=== PATIENT | female | born 2000 | race Caucasian/White ===

== ENCOUNTER 2020-10-01 16:28 | Emergency (ER) | payer MEDICAID, SELFPAY | END 2020-10-01 18:13 | disposition left against medical advice (07) | PROVIDERS: Emergency Provider Emergency Medicine; PCP Pediatrics | DX: R07.9 Chest pain, unspecified (principal) | CPT/HCPCS: 99281 ==

== ENCOUNTER 2020-10-02 17:32 | Emergency (ER) | payer MEDICAID, SELFPAY ==
--- NOTE | 2020-10-02 18:11 | ED.URI ---
HPI - URI/Sore Throat General Stated Complaint: covid symptoms Time Seen by Provider: 10/02/20 18:09 Source: patient Mode of arrival: ambulatory Limitations: no limitations History of Present Illness HPI Narrative: 20-year-old female who reports she has history of asthma 2 days ago was exposed to a family member who tested positive COVID-19 she has had some runny nose and cough since. States she is worried she may have COVID-19 is here for COVID test. Denies any fever, chest pain or shortness of breath. MD elicited complaint: cough and rhinorrhea Onset (ago): day(s) (2) Severity: mild Exacerbating factors: nothing Associated symptoms: nasal congestion Treatments prior to arrival: none Related Data Previous Rx's Medication Instructions Recorded albuterol sulfate 2 puff INHALATION Q4-6H PRN #18 g 10/02/20 prednisone 40 mg PO DAILY 5 Days #10 tab 10/02/20 Allergies Allergy/AdvReac Type Severity Reaction Status Date / Time No Known Allergies Allergy Unverified 08/03/20 19:04 Review of Systems Review of Systems: Constitutional: No Weight loss, No Fever, No Chills, No Night Sweats, No Fatigue, No Malaise ENT/Mouth: No Hearing loss, No Ear Pain, No Nasal Congestion, No Sinus Pain, No Hoarseness, No sore throat, + Rhinorrhea, No Swallowing Difficulty Eyes: No Eye Pain, No Swelling, No Redness, No Foreign Body, No Discharge, No Vision Changes Cardiovascular: No Chest Pain, No SOB, No Dyspnea on Exertion, No Orthopnea, No Edema, No Palpitations Respiratory: No Cough, No Sputum, No Wheezing, No Smoke Exposure, No Dyspnea Gastrointestinal: No Nausea, No Vomiting, No Diarrhea, No Constipation Genitourinary: no irregular bleeding, No Dysuria, No Urinary Frequency, No Hematuria Musculoskeletal: No joint pain, No Myalgias, No Joint Swelling Skin: No Skin Lesions, No rash Neuro: No Weakness, No Numbness, No Paresthesias, No Loss of Consciousness, No Dizziness, No Headache Psych: No Social Issues Heme/Lymph: No Bruising, No Bleeding,No Lymphadenopathy Endocrine: No Polyuria, No Polydipsia, No Temperature Intolerance PMFSH Past Medical History Attestation statement: The following information was validated with the patient. Social History Social History Advance Directives: No Advance Directives Information Provided: Yes Physical Exam Vital Signs: Vital Signs: Reviewed Const: General: cooperative and healthy appearing; No acute distress or intoxicated appearing Nutritional Appearance: average body habitus Orientation/consciousness: patient oriented x3 HENMT: Head: Yes normal to inspection Ears: hearing grossly normal bilaterally Eyes: General: appearance normal, both eyes and all related structures Visual Lopez: normal visual lopez by confrontation Neck: Neck: Yes normal visual inspection, No positive Brudzinski's sign, No positive Kernig's sign and No tender Thyroid: Thyroid normal Chest: Chest palpation & inspection: normal inspection of the chest Resp: Effort & Inspection: normal respiratory effort Cardio: Jugular venous distension: no JVD : General: Yes no CVA tenderness Back/Spine/Pelvis: Back: no CVA tenderness Skin: General skin exam: no rashes or lesions noted Neuro: General: patient oriented x3 Extrem: General: Yes normal to inspection MDM - URI/Sore Throat Differential Diagnosis Differential diagnosis: Likely upper respiratory infection and viral infection; Unlikely croup, otitis media, sinusitis, bronchitis, influenza and pharyngitis Discharge Plan Discharge Clinical Impression: Upper respiratory infection, acute Patient Disposition: Home, Self-Care Instructions: Upper Respiratory Infection (ED) Additional Instructions: Drink plenty fluids Self-isolation Social distancing Follow CDC guidelines line We have tested for COVID-19 this may take up to 3 days result in the meantime follow guidelines discussed Return if any concerns or worsening symptoms Thank you Prescriptions: New albuterol sulfate 90 mcg/actuation HFA aerosol inhaler 2 puff inhalation Q4-6H PRN (Reason: shortness of breath or wheezing) Qty: 18 RF: 1 prednisone 20 mg tablet 40 mg PO DAILY 5 Days Qty: 10 RF: 0 Referrals: Sara Ellison MD [Primary Care Provider] - 5 days (Phone visit ) Stand Alone Forms: Work/School Release
[2020-10-02 18:35] VITALS: BP 136/69; PULSE 60; RESP 18; TEMP 35.9; O2SAT 98; BMI 36.5
== END 2020-10-02 18:47 | disposition home or self-care (01) ==
PROVIDERS: Nurse Practitioner Primary Care; Emergency Provider Internal Medicine; PCP Pediatrics
DX: J06.9 Acute upper respiratory infection, unspecified (principal); R05 Cough; Z20.828 Contact with and (suspected) exposure to other viral communicable diseases; Z79.899 Other long term (current) drug therapy
CPT/HCPCS: 99283; U0003

== ENCOUNTER 2020-11-28 13:27 | Outpatient (REF) | payer MEDICAID, SELFPAY | END 2020-11-28 13:28 | disposition home or self-care (01) | LOC: HO.LAB 13:27 | PROVIDERS: Visit Provider Internal Medicine | DX: Z20.822 Contact with and (suspected) exposure to COVID-19 (principal) | CPT/HCPCS: 36415; C9803; U0003 ==

== ENCOUNTER 2020-12-04 14:43 | Outpatient (REF) | payer MEDICAID, SELFPAY | END 2020-12-04 14:44 | disposition home or self-care (01) | LOC: HO.LAB 14:43 | PROVIDERS: Visit Provider Internal Medicine | DX: Z20.822 Contact with and (suspected) exposure to COVID-19 (principal) | CPT/HCPCS: 36415; C9803; U0003 ==

== ENCOUNTER 2021-01-31 18:09 | Emergency (ER) | payer MEDICAID, SELFPAY ==
[2021-01-31 19:53] VITALS: BP 147/84; PULSE 90; RESP 18; TEMP 36.7; O2SAT 99; BMI 36.5
[2021-01-31 20:44] LABS: COVID-19 Test Negative (Negative)
--- NOTE | 2021-01-31 20:48 | ED.GENADULT ---
HPI - General Adult General Chief complaint: General Medical Stated complaint: exposure Time Seen by Provider: 01/31/21 19:37 Source: patient Mode of arrival: ambulatory Limitations: no limitations History of Present Illness HPI narrative: Patient presents to the ED for COVID swab. Patient asymptomatic. Patient wants to be tested due to COVID exposure. Related Data Previous Rx's Medication Instructions Recorded albuterol sulfate 2 puff INHALATION Q4-6H PRN #18 g 10/02/20 prednisone 40 mg PO DAILY 5 Days #10 tab 10/02/20 Allergies Allergy/AdvReac Type Severity Reaction Status Date / Time No Known Allergies Allergy Verified 10/02/20 18:38 Review of Systems Review of Systems: Yes all other systems are reviewed and are negative Constitutional: Constitutional: Reports as per HPI and Reports no additional constitutional complaints Eyes: Eyes: Reports as per HPI and Reports no additional eye complaints ENT: Reports system reviewed and no additional complaints, except as documented and Reports as per HPI Cardiovascular: Cardiovascular: Reports as per HPI and Reports no additional cardiovascular complaints Respiratory: Respiratory: Reports as per HPI and Reports no additional respiratory complaints Gastrointestinal: Gastrointestinal: Reports as per HPI and Reports no additional gastrointestinal complaints Genitourinary: Genitourinary: Reports no additional female genitourinary complaints and Reports as per HPI Musculoskeletal: Musculoskeletal: Reports no additional musculoskeletal complaints and Reports as per HPI Neurologic: Reports system reviewed and no additional complaints, except as documented and Reports as per HPI Psychiatric: Psychiatric: Reports no additional psychiatric complaints and Reports as per HPI [facility] Past Medical History Medical History (Updated 02/01/21 @ 00:00 by Background Daemon) Asthma Social History Social History Advance Directives: No Physical Exam Vital Signs: Vital Signs: Last Vital Signs Temp 98.1 F 01/31/21 19:53 Pulse 90 01/31/21 19:53 Resp 18 01/31/21 19:53 BP 147/84 H 01/31/21 19:53 Pulse Ox 99 01/31/21 19:53 Body Mass Index 36.5 Const: General: cooperative, healthy appearing, comfortable, no acute distress, well developed, alert and awake Orientation/consciousness: patient oriented x3 HENMT: Head: Yes normal to inspection, Yes No palpable skull fracture present, Yes normocephalic, Yes atraumatic and No abrasion Eyes: General: appearance normal, both eyes and all related structures Neck: Neck: Yes normal visual inspection, Yes full ROM, Yes no lymphadenopathy, Yes no meningeal signs, Yes trachea midline, Yes supple and No tender Chest: Chest palpation & inspection: normal inspection of the chest and normal palpation of entire chest wall Resp: Effort & Inspection: normal respiratory effort and able to speak in complete sentences Auscultation: clear to auscultation bilaterally Cardio: Jugular venous distension: no JVD Heart sounds: S1 normal heart sound present and S2 normal heart sound present GI: Inspection: Yes normal to inspection and No abdominal wall ecchymosis Palpation (GI): Soft to palpation, not firm, nontender, no guarding and not rigid : General: No CVA tenderness and Yes no CVA tenderness Back/Spine/Pelvis: Back: no CVA tenderness, No CVA tenderness and No back tenderness Skin: General skin exam: no rashes or lesions noted and elasticity normal Neuro: General: patient oriented x3, no meningeal signs and CN's II-XI intact bilaterally Cranial nerves: Yes CN's II-XII intact bilaterally Extrem: General: Yes normal to inspection and Yes full ROM Psych: Appearance: grossly normal, well kempt and not disheveled Course Course Course Narrative: Patient will have rapid COVID swab sent Reevaluation(s) Reevaluation #1: COVID swab negative Medical Decision Making [facility] Narrative Medical decision making narrative: Normal exam Lab Data Labs: Lab Results 01/31/21 Range/Units 20:00 COVID-19 (AUGIE) Negative (Negative) COVID-19 Clin Com See Note Discharge Plan Discharge Clinical Impression: Normal exam Patient Disposition: Home, Self-Care Instructions: Normal Exam (ED) Additional Instructions: Return to the ED immediately for any chest pain, shortness of breath, weakness, or any other concerning symptoms. Your COVID swab came back negative Prescriptions: No Action albuterol sulfate 90 mcg/actuation HFA aerosol inhaler 2 puff inhalation Q4-6H PRN (Reason: shortness of breath or wheezing) Qty: 18 RF: 1 prednisone 20 mg tablet 40 mg PO DAILY 5 Days Qty: 10 RF: 0 Interventions: ED Discharge Assessment Last Done: 01/31/21 21:45 Discharge Date/Time: 01/31/21 21:45 Print Language: Turkish
== END 2021-01-31 21:45 | disposition home or self-care (01) ==
PROVIDERS: Physician Assistant; Emergency Provider Emergency Medicine Emergency Medical Services
DX: Z20.822 Contact with and (suspected) exposure to COVID-19 (principal); Z79.899 Other long term (current) drug therapy
CPT/HCPCS: 36415; 87635; 99283

== ENCOUNTER 2021-02-02 13:30 | Outpatient (REF) | payer MEDICAID, SELFPAY | END 2021-02-02 13:31 | disposition home or self-care (01) | LOC: HO.LAB 13:30 | PROVIDERS: Visit Provider Internal Medicine | DX: Z20.822 Contact with and (suspected) exposure to COVID-19 (principal) | CPT/HCPCS: 36415; C9803; U0003; U0005 ==

== ENCOUNTER 2021-07-03 11:19 | Outpatient (REF) | payer MEDICAID, SELFPAY | END 2021-07-03 11:20 | disposition home or self-care (01) | LOC: HO.LAB 11:19 | PROVIDERS: Visit Provider Internal Medicine | DX: Z20.822 Contact with and (suspected) exposure to COVID-19 (principal) | CPT/HCPCS: C9803; U0003; U0005 ==

== ENCOUNTER 2021-09-14 15:34 | Outpatient (REF) | payer MEDICAID, SELFPAY ==
--- NOTE | ~2021-09-14 | US_ITS ---
EXAMINATION: US PELVIS CLINICAL INFORMATION: Excessive and frequent menstruation COMPARISON: Previous pelvic ultrasounds most recent May 2020 and pelvic MRI July 2020 TECHNIQUE: Ultrasound of the pelvis is performed using both transabdominal and transvaginal transducers along with Doppler. Transvaginal imaging is performed due to inadequate visualization transabdominally. FINDINGS: The uterus is anteverted and measures 9 x 4 x 5 cm in dimension. No focal uterine lesion is seen. Endometrial thickness is normal measuring 1.2 cm. There are nabothian cysts in the cervix. The right ovary measures 4.7 x 2 x 3.2 cm, volume 16 and renal. The left ovary measures 3.9 x 2.4 x 2.4 cm, volume 11 mL. There are multiple small peripheral cysts or follicles seen in both ovaries. Appearance is again suggestive of polycystic ovarian syndrome. There is no fluid in the pelvis. US/US pelvic and transvaginal IMPRESSION: Polycystic appearance of the ovaries. Normal thickness endometrium.
== END 2021-09-14 15:35 | disposition home or self-care (01) ==
LOC: HO.US 15:34
PROVIDERS: Visit Provider Internal Medicine
DX: N92.1 Excessive and frequent menstruation with irregular cycle (principal)
CPT/HCPCS: 76830; 76856

== ENCOUNTER 2021-10-20 12:26 | Emergency (ER) | payer MEDICAID, SELFPAY ==
--- NOTE | ~2021-10-20 | XR_ITS ---
EXAMINATION: XR CHEST CLINICAL INFORMATION: Shortness of breath. Covid positive. COMPARISON: Portable chest 09/10/2018 TECHNIQUE: Frontal view of the chest was obtained. FINDINGS: No significant abnormality is noted involving the heart, lungs, mediastinum, bony thorax or soft tissues. XR/XR chest 1V IMPRESSION: Unremarkable examination.
[2021-10-20 13:20] VITALS: BP 141/80; PULSE 80; RESP 16; TEMP 37; O2SAT 100; BMI 36.6
--- NOTE | 2021-10-20 15:31 | ECG_ITS ---
Test Reason : DYSPNEA Blood Pressure : / mmHG Vent. Rate : 068 BPM Atrial Rate : 068 BPM P-R Int : 142 ms QRS Dur : 084 ms QT Int : 386 ms P-R-T Axes : 037 051 028 degrees QTc Int : 410 ms Normal sinus rhythm with sinus arrhythmia Normal ECG No significant changes when compared with the previous EKG of 13 sep 2018 Referred By: Anne Marie Wisdom Electronically Signed By:ANYA CHILDERS
[2021-10-20 15:56] LABS: Basophils Percent Auto 0.3 % (0-2); Eosinophils Absolute Auto 0.1 X10*3/uL (0.0-0.4); Eosinophils Percent Auto 0.7 % (0-4); Hematocrit 41.4 % (37.0-47.0); Hemoglobin 13.3 g/dl (12.0-16.0); Imm Gran Abs Auto 0.02 X10*3/uL (0.00-0.03); Imm Gran Pct Auto 0.2 % (0.0-0.4); Lymphocytes Absolute Auto 2.2 X10*3/uL (1.2-4.9); Lymphocytes Percent Auto 24.8 % (20-40); MANUAL DIFF FLAG NO; Mean Corpuscular HGB Conc 32.1 g/dl (31.0-35.0); Mean Corpuscular Hemoglobin 24.9 pg (27.0-33.0); Mean Corpuscular Volume 77.5 fL (80.0-98.0); Mean Platelet Volume 10.2 fL (9.4-12.3); Monocytes Absolute Auto 0.4 X10*3/uL (0.1-1.2); Monocytes Percent Auto 4.4 % (2-11); Neutrophils Absolute Auto 6.2 x10*3/uL (2.0-8.3); Neutrophils Percent Auto 69.6 % (45-73); Platelet Count 281 X10*3/uL (160-400); Red Blood Count 5.34 X10*6/uL (4.20-5.50); Red Cell Distribution Width 13.3 % (11.0-16.0)
[2021-10-20 16:04] LABS: INTERNATIONAL NORM RATIO 1.1 (0.9-1.1); Prothrombin Time 12.3 SEC (9.9-13.0)
[2021-10-20] MEDS: predniSONE 20 MG TABLET 40 MG PO (16:16)
--- NOTE | 2021-10-20 16:17 | ED_ITS ---
HPI - SOB/Dyspnea General Chief Complaint: Dyspnea Stated Complaint: Diff Breathing COVID + Time Seen by Provider: 10/20/21 15:06 Source: patient Mode of arrival: ambulatory Limitations: no limitations History of Present Illness HPI Narrative: 21-year-old female with a past medical history of asthma who was recently diagnosed with COVID-19 at [facility] on 10/12/2021 presenting to the ED with complaints of shortness of breath with chest tightness that occurred at 03:00 when she woke up. She reports that at that time she noted she was pale and her fingernails on both hands were purple. She reports the fingernails turned back to normal color within 15 minutes. Although she still feels short of breath and the chest tightness despite using her albuterol inhaler. she does admit to having some nasal congestion/ rhinorrhea and intermittent productive cough. She denies any fevers, chills, dizziness, headaches, neck pain /stiffness, sore throat, trouble swallowing, chest pain, palpitations, paresthesias, jaw pain, abdominal pain, nausea/ vomiting/ diarrhea constipation, rashes, recent travel, lower extremity edema or calf tenderness, dysuria, History of DVT or PE, recent falls or injuries, recent surgery or immobilization, history of PVD, or any other symptoms complaints or concerns at this time. MD elicited complaint: shortness of breath and cough Pertinent past history: asthma and other (+ COVID ON 10/12) Onset (ago): hour(s) ( started at 03:00 prior to arrival) Context: recent illness ( see above) Timing: constant and progressively worsening Severity: moderate Exacerbating factors: nothing Relieving factors: nothing Known history of: asthma and other (+ COVID) Associated symptoms: pain with inspiration, cough and sputum production Treatment prior to arrival: other ( albuterol inhaler) Related Data Home oxygen amount: none Previous Rx's Medication Instructions Recorded albuterol sulfate 90 mcg/actuation 2 puff INHALATION Q4-6H PRN #18 g 10/02/20 aerosol inhaler prednisone 20 mg tablet 40 mg PO DAILY 5 Days #10 tab 10/02/20 albuterol sulfate 0.63 mg/3 mL 0.63 mg (3 mL) INHALATION QID PRN 10/20/21 solution for nebulization #75 ml albuterol sulfate 90 mcg/actuation 1 inh INHALATION QID PRN #8.5 g 10/20/21 aerosol inhaler azithromycin 250 mg tablet See Rx Instructions .ROUTE 10/20/21 .COMPLEX #6 tab codeine 10 mg-guaifenesin 100 mg/5 5 ml PO Q6H PRN #120 ml 10/20/21 mL oral liquid (Guaifenesin AC) nebulizers (AeroEclipse II #1 ea 10/20/21 Nebulizer) prednisone 20 mg tablet 40 mg PO DAILY 5 Days #10 tab 10/20/21 Allergies Allergy/AdvReac Type Severity Reaction Status Date / Time No Known Allergies Allergy Verified 10/20/21 13:20 Review of Systems Review of Systems: Constitutional : No Weight loss, No Fever, No Chills, No Night Sweats, No Fatigue, No Malaise ENT/Mouth : No Hearing loss, No Ear Pain, + Nasal Congestion, No Sinus Pain, No Hoarseness, No sore throat, + Rhinorrhea, No Swallowing Difficulty Eyes: No Eye Pain, No Swelling, No Redness, No Foreign Body, No Discharge, No Vision Changes Cardiovascular : + Chest tightness, + SOB, No Dyspnea on Exertion, No Orthopnea, No Edema, No Palpitations Respiratory : + Cough, + Sputum, + Dyspnea, No Wheezing, No Smoke Exposure Gastrointestinal : No Nausea, No Vomiting, No Diarrhea, No Constipation, No abdominal Pain, No Hematochezia, No Melena Genitourinary : no irregular bleeding, No Dysuria, No Urinary Frequency, No Hematuria, No Urinary Incontinence, No Urgency, No Flank Pain, No Urinary Flow Changes, No Hesitancy Musculoskeletal : No joint pain, No Myalgias, No Joint Swelling Skin : No Skin Lesions, No rash Neuro : No Weakness, No Numbness, No Paresthesias, No Loss of Consciousness, No Dizziness, No Headache Psych : No Anxiety/Panic, No Depression, No SI/HI/AH/VH, No Social Issues, Heme/Lymph: No Bruising, No Bleeding,No Lymphadenopathy Endocrine : No Polyuria, No Polydipsia, No Temperature Intolerance Yes all other systems are reviewed and are negative [facility] Past Medical History Attestation statement: The following information was validated with the patient. Medical History Asthma Social History Social History Advance Directives: No Advance Directives Information Provided: No Patient : No Physical Exam Vital Signs: Vital Signs: Last Vital Signs Temp 97.8 F 10/20/21 17:04 Pulse 93 10/20/21 17:04 Resp 18 10/20/21 17:04 BP 152/65 H 10/20/21 17:04 Pulse Ox 100 10/20/21 17:04 BMI result Body Mass Index 36.6 vital signs have been reviewed as normal and appeared to be correct. Blood pressure 141/80. Heart rate normal. Respiration rate normal. Temperature normal. Oxygen saturation normal. Appearance: Alert. Oriented X3. No acute distress. Head: Normal external exam. Normocephalic. Atraumatic. Eyes: PERRLA. EOMI. Conjunctiva and sclera normal. Eyelids normal. ENT: EAC normal. TM's Normal. Pharynx normal. Uvula midline. Moist mucous membranes. No trismus noted. No drooling noted. No muffled voice noted. Neck: Normal inspection. Neck supple. FROM. No adenopathy. Thyroid Normal. No meningeal signs. No neck mass noted. CVS: Normal heart rate and rhythm. Heart sound normal. Pulses normal throughout. No murmurs/rales/gallops. Respiratory: No respiratory distress. Painless inspiration. Breath sounds normal. No wheezes/rales/rhonchi noted. Chest nontender. No accessory muscle usage noted or decreased air movement noted. Abdomen: Soft and nontender. Bowel sounds normal in all 4 quadrants. No distention noted. No organomegaly noted. No visible injury noted. Back: Full range of motion noted. No rashes/lesion/induration/fluctuance or signs of infection noted. Skin: Skin warm and dry. Normal skin color. Normal skin turgor. No rashes/lesions/lacerations noted. Extremities: No lower extremity edema. no calf tenderness is noted. Extremities exhibit normal range of motion. Extremities nontender. Neuro: Oriented X 3. No motor deficit. No sensory deficit. Reflexes normal. Normal steady gait. No focal neuro deficits noted. Vascular: + radial pulses/+ 2 distal pedal pulses/+2 dorsalis pedis b/l. Normal cap refill. No cyanosis noted to upper extremity nails and lower extremity toes nails. Course Course Course Narrative: 15:30pm - 21-year-old female with a past medical history of asthma who was recently diagnosed with COVID-19 at [facility] on 10/12/2021 presenting to the ED with complaints of shortness of breath with chest tightness that occurred at 03:00 when she woke up. She reports that at that time she noted she was pale and her fingernails on both hands were purple. She reports the fingernails turned back to normal color within 15 minutes. Although she still feels short of breath and the chest tightness despite using her albuterol inhaler. she does admit to having some nasal congestion/ rhinorrhea and intermittent productive cough. Plan: Labs, chest x-ray, EKG an hour long breathing treatment and 40 mg of prednisone and re-evaluate. Reevaluation(s) Reevaluation #1: - patient just finished her breathing treatment she reports she is completely better. Labs are reviewed and all within normal limits including D-dimer and troponin. Chest x-ray within normal limits no acute processes are noted. Therefore will DC home with symptomatic treatment for possible bronchitis with COVID instructions return if any new or worsening symptoms to follow up with primary care provider. Patient understands agrees with this plan. Time: 17:59 MDM - SOB/Dyspnea Medical Records Attestation: I reviewed the patient's medical records. Lab Data Attestation: I reviewed the patient's lab results. Result diagrams: 10/20/21 15:49 10/20/21 15:49 Labs: Lab Results 10/20/21 10/20/21 10/20/21 Range/Units 15:49 15:49 15:49 WBC 9.0 (4.8-10.8) X10*3/uL RBC 5.34 (4.20-5.50) X10*6/uL Hgb 13.3 (12.0-16.0) g/dl Hct 41.4 (37.0-47.0) % MCV 77.5 L (80.0-98.0) fL MCH 24.9 L (27.0-33.0) pg MCHC 32.1 (31.0-35.0) g/dl RDW 13.3 (11.0-16.0) % Plt Count 281 (160-400) X10*3/uL MPV 10.2 (9.4-12.3) fL Immature Gran % (Auto) 0.2 (0.0-0.4) % Neut % (Auto) 69.6 (45-73) % Lymph % (Auto) 24.8 (20-40) % Talbot % (Auto) 4.4 (2-11) % Eos % (Auto) 0.7 (0-4) % Baso % (Auto) 0.3 (0-2) % Lymph # (Auto) 2.2 (1.2-4.9) X10*3/uL Talbot # (Auto) 0.4 (0.1-1.2) X10*3/uL Eos # (Auto) 0.1 (0.0-0.4) X10*3/uL Baso # (Auto) 0.0 (0.0-0.2) X10*3/uL Abs Immat Gran (auto) 0.02 (0.00-0.03) X10*3/uL Absolute Neuts (auto) 6.2 (2.0-8.3) x10*3/uL Absolute Nucleated RBC 0.000 (0.0-0.012) X10*3/uL Nucleated RBC % (auto) 0.0 (0.0-0.2) /100WBC Hold Purple Top SEE NOTE PT 12.3 (9.9-13.0) SEC INR 1.1 (0.9-1.1) D-Dimer High Sensitivty < 150 NG/ML Sodium (135-145) mmol/L Potassium (3.3-5.1) mmol/L Chloride (96-108) mmol/L Carbon Dioxide (22-29) mmol/L Anion Gap (12-20) BUN (9-16) mg/dL Creatinine (0.5-1.4) mg/dL Estim Creat Clear Calc Estimated GFR Random Glucose (60-115) mg/dL Calcium (8.4-10.2) mg/dL Magnesium (1.6-2.6) mg/dL Total Bilirubin (0.0-1.0) mg/dL AST (5-31) U/L ALT (0-31) U/L Alkaline Phosphatase (39-117) U/L Troponin I High Sens (<3.5-17.0) ng/L Total Protein (6.5-8.0) g/dL Albumin (3.5-5.0) g/dL 10/20/21 10/20/21 Range/Units 15:49 15:49 WBC (4.8-10.8) X10*3/uL RBC (4.20-5.50) X10*6/uL Hgb (12.0-16.0) g/dl Hct (37.0-47.0) % MCV (80.0-98.0) fL MCH (27.0-33.0) pg MCHC (31.0-35.0) g/dl RDW (11.0-16.0) % Plt Count (160-400) X10*3/uL MPV (9.4-12.3) fL Immature Gran % (Auto) (0.0-0.4) % Neut % (Auto) (45-73) % Lymph % (Auto) (20-40) % Talbot % (Auto) (2-11) % Eos % (Auto) (0-4) % Baso % (Auto) (0-2) % Lymph # (Auto) (1.2-4.9) X10*3/uL Talbot # (Auto) (0.1-1.2) X10*3/uL Eos # (Auto) (0.0-0.4) X10*3/uL Baso # (Auto) (0.0-0.2) X10*3/uL Abs Immat Gran (auto) (0.00-0.03) X10*3/uL Absolute Neuts (auto) (2.0-8.3) x10*3/uL Absolute Nucleated RBC (0.0-0.012) X10*3/uL Nucleated RBC % (auto) (0.0-0.2) /100WBC Hold Purple Top PT (9.9-13.0) SEC INR (0.9-1.1) D-Dimer High Sensitivty NG/ML Sodium 138 (135-145) mmol/L Potassium 4.1 (3.3-5.1) mmol/L Chloride 103 (96-108) mmol/L Carbon Dioxide 25 (22-29) mmol/L Anion Gap 14 (12-20) BUN 12 (9-16) mg/dL Creatinine 0.73 (0.5-1.4) mg/dL Estim Creat Clear Calc 132.8 Estimated GFR > 60 Random Glucose 86 (60-115) mg/dL Calcium 10.4 H (8.4-10.2) mg/dL Magnesium 2.2 (1.6-2.6) mg/dL Total Bilirubin 0.4 (0.0-1.0) mg/dL AST 19 (5-31) U/L ALT 15 (0-31) U/L Alkaline Phosphatase 83 (39-117) U/L Troponin I High Sens < 3.5 (<3.5-17.0) ng/L Total Protein 8.5 H (6.5-8.0) g/dL Albumin 4.7 (3.5-5.0) g/dL Imaging Data Chest x-ray: Attestation: I personally reviewed and interpreted this imaging study as follows: Radiologist's impression: FINDINGS: No significant abnormality is noted involving the heart, lungs, mediastinum, bony thorax or soft tissues. XR/XR chest 1V IMPRESSION: Unremarkable examination. ECG Data Attestation: I personally reviewed and interpreted this ECG as follows: ECG interpretation date: 10/20/21 ECG interpretation time: 03:59 Interpretation: Normal sinus rhythm with sinus arrhythmia with ventricular rate of 68 with a normal [place] interval normal QRS duration normal QT/ QTC interval. No acute ischemic changes are noted. Critical Care Time Critical Care Time Critical Care Time: Yes Total Critical Care Time: 60 Attestation: I personally attest to this time spent taking care of the patient Discharge Plan Discharge Clinical Impression: COVID-19, Acute asthmatic bronchitis Patient Disposition: Home, Self-Care Instructions: Asthma (ED), Acute Bronchitis (ED) Prescriptions: New albuterol sulfate 90 mcg/actuation HFA aerosol inhaler 1 inh inhalation QID PRN (Reason: shortness of breath or wheezing) Qty: 8.5 RF: 0 albuterol sulfate 0.63 mg/3 mL solution for nebulization 0.63 mg inhalation QID PRN (Reason: shortness of breath or wheezing) Qty: 75 RF: 0 azithromycin 250 mg tablet See Rx Instructions .ROUTE .COMPLEX Qty: 6 RF: 0 codeine-guaifenesin [Guaifenesin AC] 10-100 mg/5 mL liquid 5 ml PO Q6H PRN (Reason: cold symptoms) Qty: 120 RF: 0 (DME) AeroEclipse II Nebulizer Misc See Rx Instructions .ROUTE .MEDSUPPLY Qty: 1 RF: 0 prednisone 20 mg tablet 40 mg PO DAILY 5 Days Qty: 10 RF: 0 No Action albuterol sulfate 90 mcg/actuation HFA aerosol inhaler 2 puff inhalation Q4-6H PRN (Reason: shortness of breath or wheezing) Qty: 18 RF: 1 prednisone 20 mg tablet 40 mg PO DAILY 5 Days Qty: 10 RF: 0 Referrals: Ruthy Davies MD [Primary Care Provider] - 2 days Stand Alone Forms: Work/School Release Print Language: Citizen [place]
[2021-10-20 16:19] LABS: Alanine Aminotransferase 15 U/L (0-31); Albumin Level 4.7 g/dL (3.5-5.0); Alkaline Phosphatase 83 U/L (39-117); Anion Gap 14 (12-20); Aspartate Amino Transferase 19 U/L (5-31); Bilirubin Total 0.4 mg/dL (0.0-1.0); Blood Urea Nitrogen 12 mg/dL (9-16); Calcium 10.4 mg/dL (8.4-10.2); Carbon Dioxide 25 mmol/L (22-29); Chloride 103 mmol/L (96-108); Creatinine Clr Calc Pharmacy 132.8; Estimated Glomerular Filt Rate > 60; Glucose Random 86 mg/dL (60-115); Magnesium 2.2 mg/dL (1.6-2.6); Potassium 4.1 mmol/L (3.3-5.1); Sodium 138 mmol/L (135-145); Total Protein 8.5 g/dL (6.5-8.0)
[2021-10-20 16:25] LABS: D Dimer High Sensitivity < 150 NG/ML
[2021-10-20] MEDS: Albuterol Sulfate (0.083%) 2.5 MG/3 ML VIAL.NEB 10 MG INHALE (16:25)
[2021-10-20 16:26] VITALS: PULSE 84; O2SAT 96
[2021-10-20 16:58] LABS: Troponin-I High Sensitivity < 3.5 ng/L (<3.5-17.0)
[2021-10-20 17:04] VITALS: BP 152/65; PULSE 93; RESP 18; TEMP 36.6; O2SAT 100
== END 2021-10-20 19:00 | disposition home or self-care (01) ==
PROVIDERS: Physician Assistant Medical; Emergency Provider Emergency Medicine; PCP Internal Medicine
DX: U07.1 COVID-19 (principal); J20.9 Acute bronchitis, unspecified; J45.909 Unspecified asthma, uncomplicated; R06.02 Shortness of breath
CPT/HCPCS: 36415; 71045; 80053; 83735; 84484; 85025; 85379; 85610; 93005; 94640; 94644; 99283; 99284

== ENCOUNTER 2021-11-06 13:53 | Outpatient (REF) | payer MEDICAID, SELFPAY ==
[2021-11-06 16:22] LABS: HCG Quantitative < 2 mIU/mL; Thyroid Stimulating Hormone 1.03 uIU/mL (0.32-4.0)
[2021-11-08 08:57] LABS: Prolactin 5.1 ng/mL
[2021-11-08 09:42] LABS: DHEA Sulfate 274 mcg/dL (51-321)
[2021-11-13 14:51] LABS: Testosterone, Free 8.8 pg/mL (0.1-6.4); Testosterone, Total 39 ng/dL (2-45)
== END 2021-11-06 13:54 | disposition home or self-care (01) ==
LOC: HO.LAB 13:53
PROVIDERS: PCP Internal Medicine; Visit Provider Advanced Practice Midwife
DX: L68.0 Hirsutism (principal); N92.0 Excessive and frequent menstruation with regular cycle; E28.2 Polycystic ovarian syndrome; E66.9 Obesity, unspecified
CPT/HCPCS: 36415; 82627; 83498; 84146; 84402; 84403; 84443; 84702; 99202

== ENCOUNTER → 2021-11-20 11:44 | Outpatient (BNVA) | payer MEDICAID, SELFPAY | PROVIDERS: PCP Internal Medicine; Visit Provider Advanced Practice Midwife ==

== ENCOUNTER 2022-01-11 13:19 | Outpatient (REF) | payer MEDICAID, SELFPAY | END 2022-01-11 13:20 | disposition home or self-care (01) | LOC: HO.LAB 13:19 | PROVIDERS: PCP Internal Medicine; Visit Provider Advanced Practice Midwife | DX: E28.2 Polycystic ovarian syndrome (principal); N90.89 Other specified noninflammatory disorders of vulva and perineum; L91.8 Other hypertrophic disorders of the skin | CPT/HCPCS: 56605; 88304 ==

== ENCOUNTER 2022-04-18 10:03 | Emergency (ER) | payer MEDICAID, SELFPAY ==
[2022-04-18 10:34] VITALS: BP 137/75; PULSE 70; RESP 16; TEMP 36.8; O2SAT 98; BMI 35.6
[2022-04-18 11:38] LABS: MANUAL DIFF FLAG NO
[2022-04-18 11:41] LABS: Basophils Percent Auto 0.5 % (0-2); Eosinophils Absolute Auto 0.1 X10*3/uL (0.0-0.4); Eosinophils Percent Auto 1.6 % (0-4); Hematocrit 39.1 % (37.0-47.0); Hemoglobin 12.7 g/dl (12.0-16.0); Imm Gran Abs Auto 0.02 X10*3/uL (0.00-0.03); Imm Gran Pct Auto 0.3 % (0.0-0.4); Mean Corpuscular HGB Conc 32.5 g/dl (31.0-35.0); Mean Corpuscular Hemoglobin 25.9 pg (27.0-33.0); Mean Corpuscular Volume 79.6 fL (80.0-98.0); Mean Platelet Volume 10.3 fL (9.4-12.3); Monocytes Absolute Auto 0.4 X10*3/uL (0.1-1.2); Monocytes Percent Auto 6.3 % (2-11); Neutrophils Absolute Auto 3.8 x10*3/uL (2.0-8.3); Neutrophils Percent Auto 59.3 % (45-73); Platelet Count 233 X10*3/uL (160-400); Red Blood Count 4.91 X10*6/uL (4.20-5.50); Red Cell Distribution Width 13.2 % (11.0-16.0); White Blood Count 6.3 X10*3/uL (4.8-10.8)
[2022-04-18 11:58] LABS: COVID-19 Test Negative (Negative)
[2022-04-18 11:59] LABS: Alanine Aminotransferase 14 U/L (0-31); Albumin Level 4.1 g/dL (3.5-5.0); Alkaline Phosphatase 72 U/L (39-117); Anion Gap 10 (12-20); Aspartate Amino Transferase 15 U/L (5-31); Bilirubin Direct < 0.2 mg/dL (0.0-0.5); Bilirubin Total < 0.2 mg/dL (0.0-1.0); Blood Urea Nitrogen 12 mg/dL (9-16); Calcium 9.8 mg/dL (8.4-10.2); Carbon Dioxide 26 mmol/L (22-29); Chloride 104 mmol/L (96-108); Creatinine Clr Calc Pharmacy 135.2; Estimated Glomerular Filt Rate > 60; Glucose Random 88 mg/dL (60-115); Magnesium 2.5 mg/dL (1.6-2.6); Potassium 4.1 mmol/L (3.3-5.1); Sodium 136 mmol/L (135-145); Total Protein 7.6 g/dL (6.5-8.0)
[2022-04-18 12:02] LABS: IDNOW Serial# 55D5AD1C; Influenza A Negative (Negative); Influenza B2 Negative (Negative)
--- NOTE | 2022-04-18 12:08 | ECG_ITS ---
Test Reason : DIZZINESS Blood Pressure : / mmHG Vent. Rate : 071 BPM Atrial Rate : 071 BPM P-R Int : 154 ms QRS Dur : 086 ms QT Int : 384 ms P-R-T Axes : 046 060 022 degrees QTc Int : 417 ms Normal sinus rhythm Normal ECG When compared with ECG of 20-OCT-2021 15:59, No significant change was found Referred By: Pau Bowers Electronically Signed By:REGINALD GREEN MD
--- NOTE | 2022-04-18 12:08 | ED_ITS ---
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 MD elicited complaint: lightheadedness Onset (ago): day(s) (2) Timing: gradual onset Severity: mild Description: lightheadedness Context: other (unsure states it just happens) History of similar symptoms: No Exacerbating factors: nothing Relieving factors: nothing Associated symptoms: nausea Related Data Previous Rx's Medication Instructions Recorded albuterol sulfate 90 mcg/actuation 2 puff INHALATION Q4-6H PRN #18 g 10/02/20 aerosol inhaler prednisone 20 mg tablet 40 mg PO DAILY 5 Days #10 tab 10/02/20 albuterol sulfate 0.63 mg/3 mL 0.63 mg (3 mL) INHALATION QID PRN 10/20/21 solution for nebulization #75 ml albuterol sulfate 90 mcg/actuation 1 inh INHALATION QID PRN #8.5 g 10/20/21 aerosol inhaler nebulizers (AeroEclipse II #1 ea 10/20/21 Nebulizer) prednisone 20 mg tablet 40 mg PO DAILY 5 Days #10 tab 10/20/21 Allergies Allergy/AdvReac Type Severity Reaction Status Date / Time No Known Allergies Allergy Verified 11/20/21 11:44 Review of Systems Review of Systems: Constitutional : No Fever, No Chills, No Fatigue ENT/Mouth : No sore throat, No Rhinorrhea Eyes: No Eye Pain, No Swelling, No Redness Cardiovascular : No Chest Pain, No SOB, No Dyspnea on Exertion Respiratory : No Cough, No Sputum Gastrointestinal : pos Nausea, No Vomiting, No Diarrhea, No abdominal Pain Genitourinary : No Dysuria, No Urinary Frequency, No Hematuria, Musculoskeletal : No joint pain, No Myalgias, No Joint Swelling Skin : No Skin Lesions, No rash Neuro : No Weakness, No Numbness, pos Dizziness, no Headache Psych : No Anxiety/Panic, No Depression Heme/Lymph: No Bruising, No Bleeding,No Lymphadenopathy Endocrine : No Polyuria, No Polydipsia All other systems reviewed and are negative [facility] Past Medical History Attestation statement: The following information was validated with the patient. Medical History Asthma Obesity PCOS (polycystic ovarian syndrome) Social History Social History Alcohol intake: never Patient Tobacco Use Status: Never used Tobacco Advance Directives: No Advance Directives Information Provided: Yes Sexual orientation: Straight/Heterosexual Gender identity: Female Physical Exam Vital Signs: Vital Signs: Last Vital Signs Temp 98.2 F 04/18/22 10:34 Pulse 74 04/18/22 13:14 Resp 18 04/18/22 13:14 BP 116/61 04/18/22 13:14 Pulse Ox 99 04/18/22 13:14 BMI result Body Mass Index 35.6 Appearance: Alert. Oriented X3. No acute distress. Eyes: Pupils equal, round and reactive to light. ENT: Pharynx normal. Neck: Normal inspection. Neck supple. CVS: Normal heart rate and rhythm. Pulses normal. Respiratory: No respiratory distress. Breath sounds normal. Abdomen: Soft and non-tender. Skin: Skin warm and dry. Normal skin color. Normal skin turgor. Extremities: No lower extremity edema. No calf ttp Neuro: Oriented X 3. No motor deficit. No sensory deficit. Course Course Course Narrative: no acute findings stable for DC MDM - Dizziness MDM Narrative Medical decision making narrative: 21 yo female with hx of PCOS here with vague c/o feeling of dizzy she denies CP/SOB, GIB, she is neuro intact, has no headaches, working at the same job x 1 month and no increase in noxious fumes - at this time she notes she doesn't drink enough fluids - will obtain EKG, ortho VS< basic labs and hydrate. Dispo per results and findings. Lab Data Result diagrams: 04/18/22 11:33 04/18/22 11:33 Labs: Lab Results 04/18/22 04/18/22 04/18/22 Range/Units 11:33 11:33 11:33 WBC 6.3 (4.8-10.8) X10*3/uL RBC 4.91 (4.20-5.50) X10*6/uL Hgb 12.7 (12.0-16.0) g/dl Hct 39.1 (37.0-47.0) % MCV 79.6 L (80.0-98.0) fL MCH 25.9 L (27.0-33.0) pg MCHC 32.5 (31.0-35.0) g/dl RDW 13.2 (11.0-16.0) % Plt Count 233 (160-400) X10*3/uL MPV 10.3 (9.4-12.3) fL Immature Gran % (Auto) 0.3 (0.0-0.4) % Neut % (Auto) 59.3 (45-73) % Lymph % (Auto) 32.0 (20-40) % Winn % (Auto) 6.3 (2-11) % Eos % (Auto) 1.6 (0-4) % Baso % (Auto) 0.5 (0-2) % Lymph # (Auto) 2.0 (1.2-4.9) X10*3/uL Winn # (Auto) 0.4 (0.1-1.2) X10*3/uL Eos # (Auto) 0.1 (0.0-0.4) X10*3/uL Baso # (Auto) 0.0 (0.0-0.2) X10*3/uL Abs Immat Gran (auto) 0.02 (0.00-0.03) X10*3/uL Absolute Neuts (auto) 3.8 (2.0-8.3) x10*3/uL Absolute Nucleated RBC 0.000 (0.0-0.012) X10*3/uL Nucleated RBC % (auto) 0.0 (0.0-0.2) /100WBC Sodium 136 (135-145) mmol/L Potassium 4.1 (3.3-5.1) mmol/L Chloride 104 (96-108) mmol/L Carbon Dioxide 26 (22-29) mmol/L Anion Gap 10 L (12-20) BUN 12 (9-16) mg/dL Creatinine 0.68 (0.5-1.4) mg/dL Estim Creat Clear Calc 135.2 Estimated GFR > 60 Random Glucose 88 (60-115) mg/dL Calcium 9.8 (8.4-10.2) mg/dL Magnesium 2.5 (1.6-2.6) mg/dL Total Bilirubin < 0.2 (0.0-1.0) mg/dL Direct Bilirubin < 0.2 (0.0-0.5) mg/dL AST 15 (5-31) U/L ALT 14 (0-31) U/L Alkaline Phosphatase 72 (39-117) U/L Total Protein 7.6 (6.5-8.0) g/dL Albumin 4.1 (3.5-5.0) g/dL Urine Color Urine Appearance Urine pH (5.0-8.0) Ur Specific [place] (1.005-1.025) Urine Protein (NEG-TRACE) MG/DL Urine Glucose (UA) (NEG) MG/DL Urine Ketones (NEG) MG/DL Urine Blood (NEG) Urine Nitrite (NEG) Ur Leukocyte Esterase (NEG) Urine RBC (0) /HPF Urine WBC (0-4) /HPF Ur Squamous Epith Cells /LPF Urine Bacteria /LPF Urine Test (NEGATIVE) COVID-19 (AUGIE) (Negative) COVID-19 Clin Com Influenza Type A (HARINDER) Negative (Negative) Influenza Type B (HARINDER) Negative (Negative) Influenza A & B Note See Note 04/18/22 04/18/22 04/18/22 Range/Units 11:33 13:10 13:10 WBC (4.8-10.8) X10*3/uL RBC (4.20-5.50) X10*6/uL Hgb (12.0-16.0) g/dl Hct (37.0-47.0) % MCV (80.0-98.0) fL MCH (27.0-33.0) pg MCHC (31.0-35.0) g/dl RDW (11.0-16.0) % Plt Count (160-400) X10*3/uL MPV (9.4-12.3) fL Immature Gran % (Auto) (0.0-0.4) % Neut % (Auto) (45-73) % Lymph % (Auto) (20-40) % Winn % (Auto) (2-11) % Eos % (Auto) (0-4) % Baso % (Auto) (0-2) % Lymph # (Auto) (1.2-4.9) X10*3/uL Winn # (Auto) (0.1-1.2) X10*3/uL Eos # (Auto) (0.0-0.4) X10*3/uL Baso # (Auto) (0.0-0.2) X10*3/uL Abs Immat Gran (auto) (0.00-0.03) X10*3/uL Absolute Neuts (auto) (2.0-8.3) x10*3/uL Absolute Nucleated RBC (0.0-0.012) X10*3/uL Nucleated RBC % (auto) (0.0-0.2) /100WBC Sodium (135-145) mmol/L Potassium (3.3-5.1) mmol/L Chloride (96-108) mmol/L Carbon Dioxide (22-29) mmol/L Anion Gap (12-20) BUN (9-16) mg/dL Creatinine (0.5-1.4) mg/dL Estim Creat Clear Calc Estimated GFR Random Glucose (60-115) mg/dL Calcium (8.4-10.2) mg/dL Magnesium (1.6-2.6) mg/dL Total Bilirubin (0.0-1.0) mg/dL Direct Bilirubin (0.0-0.5) mg/dL AST (5-31) U/L ALT (0-31) U/L Alkaline Phosphatase (39-117) U/L Total Protein (6.5-8.0) g/dL Albumin (3.5-5.0) g/dL Urine Color YELLOW Urine Appearance HAZY Urine pH 6.0 (5.0-8.0) Ur Specific [place] 1.025 (1.005-1.025) Urine Protein NEG (NEG-TRACE) MG/DL Urine Glucose (UA) NEG (NEG) MG/DL Urine Ketones NEG (NEG) MG/DL Urine Blood 3+ H (NEG) Urine Nitrite NEG (NEG) Ur Leukocyte Esterase NEG (NEG) Urine RBC 5-9 H (0) /HPF Urine WBC 1-4 (0-4) /HPF Ur Squamous Epith Cells 3+ /LPF Urine Bacteria 1+ /LPF Urine Test NEGATIVE (NEGATIVE) COVID-19 (AUGIE) Negative (Negative) COVID-19 Clin Com See Note Influenza Type A (HARINDER) (Negative) Influenza Type B (HARINDER) (Negative) Influenza A & B Note ECG Data Attestation: I personally reviewed and interpreted this ECG as follows: Interpretation: Rate: 71 Rhythm: NSR [place]: normal Normal P waves. Normal [place]. Normal QRS complex. ST T wave : normal no AMARILYS qTC: normal prior studies: no acute ischemia The study has been interpreted contemporaneously by me. Discharge Plan Discharge Clinical Impression: Dizziness Patient Disposition: Home, Self-Care Instructions: Dizziness (ED) Additional Instructions: return to ED for any worsening symptoms or concerns labs, test and COVID test are normal drink plenty of fluids Prescriptions: No Action albuterol sulfate 90 mcg/actuation HFA aerosol inhaler 2 puff inhalation Q4-6H PRN (Reason: shortness of breath or wheezing) Qty: 18 1RF prednisone 20 mg tablet 40 mg PO DAILY 5 Days Qty: 10 0RF albuterol sulfate 90 mcg/actuation HFA aerosol inhaler 1 inh inhalation QID PRN (Reason: shortness of breath or wheezing) Qty: 8.5 0RF albuterol sulfate 0.63 mg/3 mL solution for nebulization 0.63 mg inhalation QID PRN (Reason: shortness of breath or wheezing) Qty: 75 0RF (DME) AeroEclipse II Nebulizer Misc See Rx Instructions .ROUTE .MEDSUPPLY Qty: 1 0RF Rx Instructions: As directed prednisone 20 mg tablet 40 mg PO DAILY 5 Days Qty: 10 0RF Referrals: Ruthy Davies MD [Primary Care Provider] - 3 days (if not better) Stand Alone Forms: Work/School Release
[2022-04-18 13:11] VITALS: BP 115/64; BP 122/63; PULSE 68; PULSE 70
[2022-04-18 13:13] VITALS: BP 116/61; PULSE 74
[2022-04-18 13:14] VITALS: BP 116/61; PULSE 74; RESP 18; O2SAT 99
[2022-04-18] MEDS: 0.9 % Sodium Chloride 1,000 ML 999 ML IV (13:14)
[2022-04-18 13:17] LABS: Appearance Urine HAZY; Color Urine YELLOW; Glucose Urine UA NEG (NEG); Leukocyte Esterase Urine NEG (NEG); Nitrite Urine NEG (NEG); Specific Gravity - Urine 1.025 (1.005-1.025); UACC Culture Trigger NO; Urine Blood 3+ (NEG); Urine Ketones NEG (NEG); Urine Protein NEG (NEG-TRACE)
[2022-04-18 13:18] LABS: UPreg QC Valid YES; Urine Pregnancy NEGATIVE (NEGATIVE)
[2022-04-18 13:37] LABS: Bacteria Urine 1+ /LPF; Squamous Epithelial Cell Urine 3+ /LPF
== END 2022-04-18 14:18 | disposition home or self-care (01) ==
PROVIDERS: Emergency Provider Emergency Medicine; PCP Internal Medicine
DX: R42 Dizziness and giddiness (principal); J45.909 Unspecified asthma, uncomplicated; Z20.822 Contact with and (suspected) exposure to COVID-19
CPT/HCPCS: 80053; 81001; 81025; 82248; 83735; 85025; 87502; 87635; 93005; 96360; 99284

== ENCOUNTER 2022-07-11 08:11 | Emergency (ER) | payer MEDICAID, SELFPAY ==
[2022-07-11 08:35] VITALS: BP 123/72; PULSE 69; RESP 18; TEMP 36.9; O2SAT 99; BMI 36.3
--- NOTE | 2022-07-11 09:05 | ED.ASTHMA ---
HPI - Asthma General Chief Complaint: Asthma Stated Complaint: asthma Time Seen by Provider: 07/11/22 09:05 Source: patient Mode of arrival: ambulatory Limitations: no limitations History of Present Illness HPI Narrative: 22 yo female with history of mild intermittent asthma who presents to the ER for evaluation of SOB and runny nose for the last 2 days in the setting of running out of her inhalers and nebulizer treatments. She states she feels like her asthma is acting up. She is a known triggers. She states she also has a slight sore throat and pressure in her sinuses for the last 2 days. She has clear nasal discharge. She reports she was short of breath and wheezy when she woke up this morning. She took 2 at home COVID test that were negative. She denies any sick contacts. No fever or chills. No chest pain or difficulty breathing. MD complaint: wheezing Onset (ago): day(s) (2) Severity: mild Context: recent URI and ran out of meds Associated symptoms: productive cough Related Data Current Asthma Therapy: inhaled bronchodilator Previous Rx's Medication Instructions Recorded albuterol sulfate 90 mcg/actuation 2 puff inhalation Q4-6H PRN 10/02/20 aerosol inhaler shortness of breath or wheezing #18 grams prednisone 20 mg tablet 40 mg PO DAILY 5 days #10 tabs 10/02/20 albuterol sulfate 0.63 mg/3 mL 0.63 mg (3 mL) inhalation QID PRN 10/20/21 solution for nebulization shortness of breath or wheezing #75 mL albuterol sulfate 90 mcg/actuation 1 inh inhalation QID PRN shortness 10/20/21 aerosol inhaler of breath or wheezing #8.5 grams nebulizers (AeroEclipse II #1 ea 10/20/21 Nebulizer) prednisone 20 mg tablet 40 mg PO DAILY rash 5 days #10 tabs 10/20/21 albuterol sulfate 90 mcg/actuation 2 inh inhalation Q4-6H PRN 07/11/22 aerosol inhaler shortness of breath or wheezing #8.5 grams fluticasone propionate 50 1 spray intranasal BID #16 grams 07/11/22 mcg/actuation nasal spray,suspension (Flonase Allergy Relief) Allergies Allergy/AdvReac Type Severity Reaction Status Date / Time No Known Allergies Allergy Verified 11/20/21 11:44 Review of Systems Review of Systems: Constitutional: No Fever, No Chills ENT/Mouth: + sore throat, + Rhinorrhea, No Swallowing Difficulty, +Nasal congestion Eyes: No Eye Pain, No Swelling, No Redness Cardiovascular: No Chest Pain, +SOB Respiratory: + Cough, + Sputum, + Wheezing, No dyspnea Gastrointestinal: No Nausea, No Vomiting, No Diarrhea, No abdominal Pain Musculoskeletal: No joint pain, No Myalgias Skin: No Skin Lesions, No rash Neuro: No Weakness, No Numbness, No Dizziness, No Headache Heme/Lymph: No Lymphadenopathy [facility] Past Medical History Medical History Asthma Obesity PCOS (polycystic ovarian syndrome) Social History Social History Alcohol intake: never Patient Tobacco Use Status: Never used Tobacco Advance Directives: No Advance Directives Information Provided: No Sexual orientation: Straight/Heterosexual Gender identity: Female Physical Exam Vital Signs: Vital Signs: Last Vital Signs Temp 98.4 F 07/11/22 08:35 Pulse 69 07/11/22 08:35 Resp 18 07/11/22 08:35 BP 123/72 07/11/22 08:35 Pulse Ox 99 07/11/22 08:35 O2 Del Method 07/11/22 08:35 BMI result Body Mass Index 36.3 Appearance: Alert. Oriented X3. No acute distress. Eyes: Pupils equal, round and reactive to light. ENT: Pharynx with moist mucous membranes, mild generalized posterior pharyngeal erythema, no tonsillar exudates or swelling. Uvula midline. Nasal turbinates erythematous with clear nasal discharge. Normal appearing tympanic membranes bilaterally. Neck: Normal inspection. Neck supple. No lymphadenopathy CVS: Normal heart rate and rhythm. Pulses normal. Respiratory: No respiratory distress. Breath sounds normal. Skin: Skin warm and dry. Normal skin color. Normal skin turgor. No rashes. Extremities: No lower extremity edema. Normal inspection times 4 Neuro: Oriented X 3. Grossly normal, nonfocal Course Course Course Narrative: 22-year-old female with a history of mild intermittent asthma, obesity, PCOS who presents to the ER 2 days of stuffy nose and SOB. She took 2 at home COVID test this morning and were negative. She ran out of her inhaler and feels like she needs them today. On exam she is not wheezy, she has nasal congestion and posterior pharyngeal erythema most consistent with upper respiratory infection. She is nontoxic appearing with normal vital signs. Will plan to start Flonase, [id number] cold and flu medications and give her new prescription for her albuterol inhaler. Return precautions were discussed. She is stable for discharge home with outpatient follow-up. Critical Care Time Critical Care Time Critical Care Time: No Discharge Plan Discharge Clinical Impression: Asthma, URI (upper respiratory infection) Patient Disposition: Home, Self-Care Instructions: Asthma (ED), Upper Respiratory Infection (ED) Additional Instructions: Your inhaler every 4 hours until your symptoms are better controlled. Take [id number] cold and flu medications. Rest and drink plenty of fluids. Follow up with your doctor. If you develop new or worsening symptoms call 911 or come back to the ER for further evaluation. Prescriptions: New albuterol sulfate 90 mcg/actuation HFA aerosol inhaler 2 inh inhalation Q4-6H PRN (Reason: shortness of breath or wheezing) Qty: 8.5 0RF fluticasone propionate [Flonase Allergy Relief] 50 mcg/actuation spray,suspension 1 spray intranasal BID Qty: 16 0RF Rx Instructions: administer into each nostril No Action albuterol sulfate 90 mcg/actuation HFA aerosol inhaler 2 puff inhalation Q4-6H PRN (Reason: shortness of breath or wheezing) Qty: 18 1RF prednisone 20 mg tablet 40 mg PO DAILY 5 Days Qty: 10 0RF albuterol sulfate 90 mcg/actuation HFA aerosol inhaler 1 inh inhalation QID PRN (Reason: shortness of breath or wheezing) Qty: 8.5 0RF albuterol sulfate 0.63 mg/3 mL solution for nebulization 0.63 mg inhalation QID PRN (Reason: shortness of breath or wheezing) Qty: 75 0RF (DME) AeroEclipse II Nebulizer Misc See Rx Instructions .ROUTE .MEDSUPPLY Qty: 1 0RF Rx Instructions: As directed prednisone 20 mg tablet 40 mg PO DAILY 5 Days Qty: 10 0RF Referrals: Ruthy Davies MD [Primary Care Provider] - Stand Alone Forms: Work/School Release
== END 2022-07-11 09:35 | disposition home or self-care (01) ==
PROVIDERS: Emergency Provider Emergency Medicine Emergency Medical Services; PCP Internal Medicine
DX: J06.9 Acute upper respiratory infection, unspecified (principal); J45.909 Unspecified asthma, uncomplicated
CPT/HCPCS: 99282; 99283

== ENCOUNTER 2022-07-28 18:21 | Emergency (ER) | payer MEDICAID, SELFPAY ==
[2022-07-28 20:25] VITALS: BP 140/79; PULSE 77; RESP 18; TEMP 36.8; O2SAT 96; BMI 36.3
[2022-07-28 21:30] LABS: Hematocrit 38.5 % (37.0-47.0); Hemoglobin 12.5 g/dl (12.0-16.0); Mean Corpuscular HGB Conc 32.5 g/dl (31.0-35.0); Mean Corpuscular Hemoglobin 25.2 pg (27.0-33.0); Mean Corpuscular Volume 77.6 fL (80.0-98.0); Mean Platelet Volume 10.2 fL (9.4-12.3); Platelet Count 264 X10*3/uL (160-400); Red Blood Count 4.96 X10*6/uL (4.20-5.50); Red Cell Distribution Width 13.3 % (11.0-16.0); White Blood Count 7.9 X10*3/uL (4.8-10.8)
[2022-07-28 22:24] LABS: Alanine Aminotransferase 14 U/L (0-31); Albumin Level 4.4 g/dL (3.5-5.0); Alkaline Phosphatase 77 U/L (39-117); Anion Gap 15 (12-20); Aspartate Amino Transferase 18 U/L (5-31); Bilirubin Total 0.2 mg/dL (0.0-1.0); Blood Urea Nitrogen 11 mg/dL (9-16); Calcium 9.6 mg/dL (8.4-10.2); Carbon Dioxide 25 mmol/L (22-29); Chloride 103 mmol/L (96-108); Creatinine Clr Calc Pharmacy 132.8; Estimated Glomerular Filt Rate > 60; Glucose Random 83 mg/dL (60-115); Sodium 139 mmol/L (135-145); Total Protein 8.1 g/dL (6.5-8.0)
--- NOTE | 2022-07-29 01:29 | ED.DENTAL ---
HPI - Dental/Oral General Chief complaint: Dental/Oral Stated complaint: dental pain Time Seen by Provider: 07/29/22 01:27 Source: patient Mode of arrival: ambulatory Limitations: no limitations History of Present Illness HPI Narrative: 22-year-old female with a PMHx of PCOS and asthma who presents to the ED with dental pain. The patient tells me that she has had pain to a tooth in her left lower jaw where she has a known broken tooth and that she has been preferentially chewing her food on the right side, however, for the past 2-3 days she has had pain to a tooth in her right upper jaw. She tells me that the pain radiates from the right affected tooth toward her ear. She has been planning to see a dentist for both of these issues however, has not yet been able to make an appointment. She denies fevers, chills, sore throat, dysphagia, difficulty swallowing, changes in voice, shortness of breath, and has been able to eat and drink as normal. Related Data Previous Rx's Medication Instructions Recorded albuterol sulfate 90 mcg/actuation 2 puff inhalation Q4-6H PRN 10/02/20 aerosol inhaler shortness of breath or wheezing #18 grams prednisone 20 mg tablet 40 mg PO DAILY 5 days #10 tabs 10/02/20 albuterol sulfate 0.63 mg/3 mL 0.63 mg (3 mL) inhalation QID PRN 10/20/21 solution for nebulization shortness of breath or wheezing #75 mL albuterol sulfate 90 mcg/actuation 1 inh inhalation QID PRN shortness 10/20/21 aerosol inhaler of breath or wheezing #8.5 grams nebulizers (AeroEclipse II #1 ea 10/20/21 Nebulizer) prednisone 20 mg tablet 40 mg PO DAILY rash 5 days #10 tabs 10/20/21 albuterol sulfate 90 mcg/actuation 2 inh inhalation Q4-6H PRN 07/11/22 aerosol inhaler shortness of breath or wheezing #8.5 grams fluticasone propionate 50 1 spray intranasal BID #16 grams 07/11/22 mcg/actuation nasal spray,suspension (Flonase Allergy Relief) amoxicillin 500 mg capsule 500 mg PO BID 7 days #14 caps 07/29/22 Allergies Allergy/AdvReac Type Severity Reaction Status Date / Time No Known Allergies Allergy Verified 11/20/21 11:44 Review of Systems Review of Systems: Constitutional : No Weight loss, No Fever, No Chills, No Fatigue, No Malaise ENT/Mouth : No sore throat, No Rhinorrhea. No dysphagia. No difficulty swallowing. +tooth pain (right upper and left lower) Eyes: No Eye Pain, No Swelling, No Redness Cardiovascular : No Chest Pain, No SOB, No Dyspnea on Exertion, No Orthopnea, No Edema, No Palpitations Respiratory : No Cough, No Sputum, No Wheezing Gastrointestinal : No Nausea, No Vomiting, No Diarrhea, No Constipation, No abdominal Pain Musculoskeletal : No joint pain, No Myalgias, No Joint Swelling Skin : No Skin Lesions, No rash Neuro : No Weakness, No Numbness, No Dizziness, No Headache Psych : No Anxiety/Panic, No Depression All other systems reviewed and are negative Yes all other systems are reviewed and are negative [facility] Past Medical History Attestation statement: The following information was validated with the patient. Source: old records reviewed and nursing notes reviewed Medical History Asthma Obesity PCOS (polycystic ovarian syndrome) Social History Social History Alcohol intake: never Patient Tobacco Use Status: Never used Tobacco Advance Directives: No Advance Directives Information Provided: Yes Sexual orientation: Straight/Heterosexual Gender identity: Female Physical Exam Vital Signs: Vital Signs: Last Vital Signs Temp 98.2 F 07/28/22 20:25 Pulse 77 07/28/22 20:25 Resp 18 07/28/22 20:25 BP 140/79 H 07/28/22 20:25 Pulse Ox 96 07/28/22 20:25 O2 Del Method 07/28/22 20:25 BMI result Body Mass Index 36.3 VSS Appearance: Alert.? Oriented X3.? No acute distress.? Patient speaking in full sentences, controlling secretions well. Appears to be in no acute distress. Head: Normocephalic, atraumatic, no step-offs or deformities Eyes: Pupils equal, round and reactive to light.? ENT: Pharynx normal.?Uvula midline. No posterior pharyngeal swelling or erythema. Dental caries appreciated throughout and poor dentition. Cracked tooth noted to the left lower jaw w/ pain with palpation and percussion with small pustule on the adjacent gum. No notable deformity of teeth or dental abscess to the teeth of the right upper jaw. No tenderness to palpation of sinuses or face throughout. No swelling of the face. Uvula midline Neck: Normal inspection.? Neck supple.? CVS: Normal heart rate and rhythm.? Pulses normal.? Respiratory: No respiratory distress.? Breath sounds normal.?? Skin: Skin warm and dry.? Normal skin color.? Normal skin turgor.? Extremities: No lower extremity edema.?Moving all extremities. Neuro: Oriented X 3.? No motor deficit.? No sensory deficit. HEENT: Teeth image: 1. affected area 2. affected area Course Reevaluation(s) Reevaluation #1: CBC and chemistry appear to be at patient's baseline. No leukocytois. Patient will be discharged on amoxicillin for dental infection & advised to follow-up with her dentist tomorrow for further evaluation. Patient educated on worrisome signs and symptoms and when to return. Outlined these on her discharge. At this time I feel comfortable discharge home, patient verbalizes understanding and tells me she will call her dentist tomorrow. Comfortable discharge Time: 01:36 MDM - Dental/Oral MDM Narrative Medical decision making narrative: 22 y/o F presenting with 2-3 days of tooth pain to the right upper jaw. Also has a cracked tooth in the left lower jaw. Has not yet seen a dentist. PE remarkable for dental caries throughout, cracked tooth in the left lower jaw w/ poor dentition and Discomfort with palpation and percussion of tooth. No evidence of abscess. No signs of dental abscess, peritonsillar abscess, epiglottitis. Patient appears comfortable, no acute distress, non toxic Plan to obtain CBC and CMP, evaluate for leukocytosis/systemic infection. Suspect pain due to broken tooth vs. cavity. Will discharge on Amoxicillin with plan for dental follow-up tomorrow. Medical Records Attestation: I reviewed the patient's medical records. Lab Data Attestation: I reviewed the patient's lab results. Result diagrams: 07/28/22 21:22 07/28/22 21:22 Labs: Lab Results 07/28/22 07/28/22 Range/Units 21:22 21:22 WBC 7.9 (4.8-10.8) X10*3/uL RBC 4.96 (4.20-5.50) X10*6/uL Hgb 12.5 (12.0-16.0) g/dl Hct 38.5 (37.0-47.0) % MCV 77.6 L (80.0-98.0) fL MCH 25.2 L (27.0-33.0) pg MCHC 32.5 (31.0-35.0) g/dl RDW 13.3 (11.0-16.0) % Plt Count 264 (160-400) X10*3/uL MPV 10.2 (9.4-12.3) fL Absolute Nucleated RBC 0.000 (0.0-0.012) X10*3/uL Nucleated RBC % (auto) 0.0 (0.0-0.2) /100WBC Sodium 139 (135-145) mmol/L Potassium 4.0 (3.3-5.1) mmol/L Chloride 103 (96-108) mmol/L Carbon Dioxide 25 (22-29) mmol/L Anion Gap 15 (12-20) BUN 11 (9-16) mg/dL Creatinine 0.72 (0.5-1.4) mg/dL Estim Creat Clear Calc 132.8 Estimated GFR > 60 Random Glucose 83 (60-115) mg/dL Calcium 9.6 (8.4-10.2) mg/dL Total Bilirubin 0.2 (0.0-1.0) mg/dL AST 18 (5-31) U/L ALT 14 (0-31) U/L Alkaline Phosphatase 77 (39-117) U/L Total Protein 8.1 H (6.5-8.0) g/dL Albumin 4.4 (3.5-5.0) g/dL Critical Care Time Critical Care Time Critical Care Time: No Discharge Plan Discharge Clinical Impression: Toothache, Dental caries Patient Disposition: Home, Self-Care Instructions: Toothache (ED) Additional Instructions: Take your medications as prescribed. If you were prescribed antibiotics today, it is important that you take your medication to their entirety, do not skip any doses, do not finish them early. Follow-up with your primary care provider this week. Return to the emergency department with new or worsening symptoms. Such as fevers, chills, chest pain, shortness of breath, nausea, vomiting, dizziness, headache, vision changes, lethargy In case of emergency call 911 amoxicillin has been sent to your pharmacy, please take this as prescribed. For pain you can take ibuprofen every 6 hours, Tylenol every 4 as needed for pain or discomfort. He need to see a dentist as soon as possible preferably within the next day or 2. Prescriptions: New amoxicillin 500 mg capsule 500 mg PO BID 7 Days Qty: 14 0RF No Action albuterol sulfate 90 mcg/actuation HFA aerosol inhaler 2 puff inhalation Q4-6H PRN (Reason: shortness of breath or wheezing) Qty: 18 1RF prednisone 20 mg tablet 40 mg PO DAILY 5 Days Qty: 10 0RF albuterol sulfate 90 mcg/actuation HFA aerosol inhaler 1 inh inhalation QID PRN (Reason: shortness of breath or wheezing) Qty: 8.5 0RF albuterol sulfate 0.63 mg/3 mL solution for nebulization 0.63 mg inhalation QID PRN (Reason: shortness of breath or wheezing) Qty: 75 0RF (DME) AeroEclipse II Nebulizer [facility] [place] See Rx Instructions .ROUTE .MEDSUPPLY Qty: 1 0RF Rx Instructions: As directed prednisone 20 mg tablet 40 mg PO DAILY 5 Days Qty: 10 0RF albuterol sulfate 90 mcg/actuation HFA aerosol inhaler 2 inh inhalation Q4-6H PRN (Reason: shortness of breath or wheezing) Qty: 8.5 0RF fluticasone propionate [Flonase Allergy Relief] 50 mcg/actuation spray,suspension 1 spray intranasal BID Qty: 16 0RF Rx Instructions: administer into each nostril Referrals: ED Physician,Generic [Physician] - 2 days Stand Alone Forms: Work/School Release
[2022-07-29 02:00] VITALS: RESP 18
== END 2022-07-29 02:07 | disposition home or self-care (01) ==
PROVIDERS: Emergency Provider Internal Medicine; PCP Pediatrics
DX: K02.9 Dental caries, unspecified (principal); K03.81 Cracked tooth; K08.89 Other specified disorders of teeth and supporting structures
CPT/HCPCS: 36415; 80053; 85027; 99283

== ENCOUNTER 2022-11-02 01:56 | Emergency (ER) | payer MEDICAID, SELFPAY ==
[2022-11-02 02:00] VITALS: BP 143/71; PULSE 122; RESP 16; TEMP 37.3; O2SAT 97; BMI 37.5
--- NOTE | 2022-11-02 02:19 | ED_ITS ---
HPI - General Adult General Chief complaint: General Medical Stated complaint: dizzy, stomach pain Time Seen by Provider: 11/02/22 02:10 Source: patient Mode of arrival: ambulatory Limitations: no limitations History of Present Illness HPI narrative: Patient comes to the emergency room complaining of nausea, chills, diffuse body aching burning abdominal pain, weakness, lightheadedness with standing. Patient also complaining of a headache. Patient states that she was not taking any medication including Tylenol or ibuprofen. Patient denies any dizziness or lightheadedness when she is at rest. Related Data Previous Rx's Medication Instructions Recorded albuterol sulfate 90 mcg/actuation 2 puff inhalation Q4-6H PRN 10/02/20 aerosol inhaler shortness of breath or wheezing #18 grams prednisone 20 mg tablet 40 mg PO DAILY 5 days #10 tabs 10/02/20 albuterol sulfate 0.63 mg/3 mL 0.63 mg (3 mL) inhalation QID PRN 10/20/21 solution for nebulization shortness of breath or wheezing #75 mL albuterol sulfate 90 mcg/actuation 1 inh inhalation QID PRN shortness 10/20/21 aerosol inhaler of breath or wheezing #8.5 grams nebulizers (AeroEclipse II #1 ea 10/20/21 Nebulizer) prednisone 20 mg tablet 40 mg PO DAILY rash 5 days #10 tabs 10/20/21 albuterol sulfate 90 mcg/actuation 2 inh inhalation Q4-6H PRN 07/11/22 aerosol inhaler shortness of breath or wheezing #8.5 grams fluticasone propionate 50 1 spray intranasal BID #16 grams 07/11/22 mcg/actuation nasal spray,suspension (Flonase Allergy Relief) amoxicillin 500 mg capsule 500 mg PO BID 7 days #14 caps 07/29/22 acetaminophen 500 mg capsule 500 mg PO QID PRN fever or pain 11/02/22 #20 caps ondansetron HCl 4 mg tablet 4 mg PO Q8H PRN nausea and 11/02/22 vomiting #10 tabs Allergies Allergy/AdvReac Type Severity Reaction Status Date / Time No Known Allergies Allergy Verified 11/20/21 11:44 Review of Systems Review of Systems: Constitutional : No Weight loss, No Fever, complaining of Chills, No Night Sweats, complaining of fatigue and generalized malaise ENT/Mouth : No Hearing loss, No Ear Pain, No Nasal Congestion, No Sinus Pain, No Hoarseness, No sore throat, No Rhinorrhea, No Swallowing Difficulty Eyes: No Eye Pain, No Swelling, No Redness, No Foreign Body, No Discharge, No Vision Changes Cardiovascular : No Chest Pain, No SOB, No Dyspnea on Exertion, No Orthopnea, No Edema, No Palpitations Respiratory : No Cough, No Sputum, No Wheezing, No Smoke Exposure, No Dyspnea Gastrointestinal : Complaining of nausea, No Vomiting, No Diarrhea, No Constipation, complaining of diffuse abdominal pain/cramping No Hematochezia, No Melena Genitourinary : no irregular bleeding, No Dysuria, No Urinary Frequency, No Hematuria, No Urinary Incontinence, No Urgency, No Flank Pain, No Urinary Flow Changes, No Hesitancy Musculoskeletal : No joint pain, No Myalgias, No Joint Swelling Skin : No Skin Lesions, No rash Neuro : No Weakness, No Numbness, No Paresthesias, No Loss of Consciousness, No Dizziness, No Headache Psych : No Anxiety/Panic, No Depression, No SI/HI/AH/VH, No Social Issues, Heme/Lymph: No Bruising, No Bleeding,No Lymphadenopathy Endocrine : No Polyuria, No Polydipsia, No Temperature Intolerance PMFSH Past Medical History Medical History Asthma Obesity PCOS (polycystic ovarian syndrome) Social History Social History Alcohol intake: never Patient Tobacco Use Status: Never used Tobacco Smoked in Last 30 Days: No Use of substances other than those prescribed or required for medical reasons: No Advance Directives: No Advance Directives Information Provided: Yes Patient : No Sexual orientation: Straight/Heterosexual Gender identity: Female Physical Exam ED Vital Signs: Vital Signs - 24 hr 11/02/22 02:00 11/02/22 03:21 Temperature 99.2 F 98.6 F Pulse Rate 122 H 91 Respiratory Rate 16 22 H Blood Pressure 143/71 H 104/54 L Pulse Oximetry 97 95 Oxygen Delivery Method Room Air Room Air BMI result Body Mass Index 37.5 Const Other: Appearance: Alert. Oriented X3. No acute distress. Eyes: Pupils equal, round and reactive to light. ENT: Pharynx normal. Neck: Normal inspection. Neck supple. No lymph nodes noted. No crepitus CVS: N regular rhythm, tachycardic in the 120s. Pulses normal. Normal S1 and S2 Respiratory: No respiratory distress. Breath sounds normal. No Wheezing. No rales Abdomen: Soft and nontender. No rigidity. No distention. Skin: Skin warm and dry. Normal skin color. Normal skin turgor. Extremities: No lower extremity edema. No Lacerations. No Rash Neuro: Oriented X 3. No motor deficit. No sensory deficit. Moving all extremities. No slurred speech. CN 2 through 12 grossly intact Psych: calm, cooperative, normal affect Course Course Course Narrative: Patient is slightly tachycardic, normal blood pressure, does not seem to have fever. All the patient's labs are pending. Patient given IV fluids, Zofran Wells criteria score for pulmonary embolism is 0 Orthostatics, EKG pending Patient's hematology and chemistry within normal limits, RSV/flu/COVID negative. Troponin negative, EKG within limits Patient likely having a viral syndrome. After IV fluids, Zofran, patient states that she feels much better. Patient no longer tachycardic. Medications Administered Discontinued Medications Generic Name Dose Route Start Last Admin Trade Name Freq PRN Reason Stop Dose Admin Acetaminophen 975 mg 11/02/22 02:18 11/02/22 03:17 Acetaminophen 325 Mg Tablet PO 11/02/22 02:19 975 mg ONCE ONE Administration Sodium Chloride 1,000 mls @ 999 mls/hr 11/02/22 02:18 11/02/22 04:18 Ns IVCONT 11/02/22 03:18 Infused .Q1H1M ONE Infusion Ondansetron HCl 4 mg 11/02/22 02:18 11/02/22 02:51 Ondansetron Hcl 4 Mg/2 Ml Vial IVPUSH 11/02/22 02:19 4 mg ONCE ONE Administration Medical Decision Making Differential Diagnosis Differential Diagnoses: The differential diagnosis associated with the presentation includes (Viral syndrome, COVID, influenza) Lab Data MDM Lab Attestation statement: I reviewed the patient's lab results. Result Diagrams: 11/02/22 03:05 11/02/22 03:05 Labs: Lab Results 11/02/22 11/02/22 11/02/22 Range/Units 02:08 03:05 03:05 WBC 7.4 (4.8-10.8) X10*3/uL RBC 5.19 (4.20-5.50) X10*6/uL Hgb 12.9 (12.0-16.0) g/dl Hct 39.5 (37.0-47.0) % MCV 76.1 L (80.0-98.0) fL MCH 24.9 L (27.0-33.0) pg MCHC 32.7 (31.0-35.0) g/dl RDW 12.6 (11.0-16.0) % Plt Count 229 (160-400) X10*3/uL MPV 10.3 (9.4-12.3) fL Immature Gran % (Auto) 0.1 (0.0-0.4) % Neut % (Auto) 84.6 H (45-73) % Lymph % (Auto) 11.7 L (20-40) % [place] % (Auto) 3.3 (2-11) % Eos % (Auto) 0.0 (0-4) % Baso % (Auto) 0.3 (0-2) % Lymph # (Auto) 0.9 L (1.2-4.9) X10*3/uL [place] # (Auto) 0.2 (0.1-1.2) X10*3/uL Eos # (Auto) 0.0 (0.0-0.4) X10*3/uL Baso # (Auto) 0.0 (0.0-0.2) X10*3/uL Abs Immat Gran (auto) 0.01 (0.00-0.03) X10*3/uL Absolute Neuts (auto) 6.2 (2.0-8.3) x10*3/uL Absolute Nucleated RBC 0.000 (0.0-0.012) X10*3/uL Nucleated RBC % (auto) 0.0 (0.0-0.2) /100WBC Sodium 136 (135-145) mmol/L Potassium 3.7 (3.3-5.1) mmol/L Chloride 104 (96-108) mmol/L Carbon Dioxide 21 L (22-29) mmol/L Anion Gap 15 (12-20) BUN 11 (9-16) mg/dL Creatinine 0.76 (0.5-1.4) mg/dL Estim Creat Clear Calc 123.3 Estimated GFR > 60 Random Glucose 108 (60-115) mg/dL Calcium 9.3 (8.4-10.2) mg/dL Total Bilirubin 0.4 (0.0-1.0) mg/dL Direct Bilirubin < 0.2 (0.0-0.5) mg/dL AST 19 (5-31) U/L ALT 19 (0-31) U/L Alkaline Phosphatase 79 (39-117) U/L Total Protein 7.8 (6.5-8.0) g/dL Albumin 4.4 (3.5-5.0) g/dL Lipase 17 (8-78) U/L Influenza Type A (PCR) NEGATIVE (Negative) Influenza Type B (PCR) NEGATIVE (Negative) RSV RNA Qual (PCR) NEGATIVE (Negative) SARS-CoV-2 RNA (RT-PCR) NEGATIVE (Negative) Discharge Plan Discharge Clinical Impression: Acute viral syndrome Patient Disposition: Home, Self-Care Instructions: Viral Syndrome (ED) Additional Instructions: Please follow-up with your primary care physician tomorrow. If you have any worsening or new symptoms, please return to the emergency room or call 911 Prescriptions: New acetaminophen 500 mg capsule 500 mg PO QID PRN (Reason: fever or pain) Qty: 20 0RF ondansetron HCl 4 mg tablet 4 mg PO Q8H PRN (Reason: nausea and vomiting) Qty: 10 0RF No Action albuterol sulfate 90 mcg/actuation HFA aerosol inhaler 2 puff inhalation Q4-6H PRN (Reason: shortness of breath or wheezing) Qty: 18 1RF prednisone 20 mg tablet 40 mg PO DAILY 5 Days Qty: 10 0RF albuterol sulfate 90 mcg/actuation HFA aerosol inhaler 1 inh inhalation QID PRN (Reason: shortness of breath or wheezing) Qty: 8.5 0RF albuterol sulfate 0.63 mg/3 mL solution for nebulization 0.63 mg inhalation QID PRN (Reason: shortness of breath or wheezing) Qty: 75 0RF (DME) AeroEclipse II Nebulizer Misc See Rx Instructions .ROUTE .MEDSUPPLY Qty: 1 0RF Rx Instructions: As directed prednisone 20 mg tablet 40 mg PO DAILY 5 Days Qty: 10 0RF albuterol sulfate 90 mcg/actuation HFA aerosol inhaler 2 inh inhalation Q4-6H PRN (Reason: shortness of breath or wheezing) Qty: 8.5 0RF fluticasone propionate [Flonase Allergy Relief] 50 mcg/actuation spray,suspension 1 spray intranasal BID Qty: 16 0RF Rx Instructions: administer into each nostril amoxicillin 500 mg capsule 500 mg PO BID 7 Days Qty: 14 0RF
[2022-11-02 02:48] LABS: Influenza A PCR NEGATIVE (Negative); Influenza B PCR NEGATIVE (Negative); Resp Syncy Virus RNA Qual PCR NEGATIVE (Negative); SARS COV2 PCR INHOUSE NEGATIVE (Negative)
[2022-11-02] MEDS: ondansetron HCL 4 MG/2 ML VIAL IVPUSH (02:51)
[2022-11-02 03:10] LABS: Basophils Percent Auto 0.3 % (0-2); Hematocrit 39.5 % (37.0-47.0); Hemoglobin 12.9 g/dl (12.0-16.0); Imm Gran Abs Auto 0.01 X10*3/uL (0.00-0.03); Imm Gran Pct Auto 0.1 % (0.0-0.4); Lymphocytes Absolute Auto 0.9 X10*3/uL (1.2-4.9); Lymphocytes Percent Auto 11.7 % (20-40); MANUAL DIFF FLAG NO; Mean Corpuscular HGB Conc 32.7 g/dl (31.0-35.0); Mean Corpuscular Hemoglobin 24.9 pg (27.0-33.0); Mean Corpuscular Volume 76.1 fL (80.0-98.0); Mean Platelet Volume 10.3 fL (9.4-12.3); Monocytes Absolute Auto 0.2 X10*3/uL (0.1-1.2); Monocytes Percent Auto 3.3 % (2-11); Neutrophils Absolute Auto 6.2 x10*3/uL (2.0-8.3); Neutrophils Percent Auto 84.6 % (45-73); Platelet Count 229 X10*3/uL (160-400); Red Blood Count 5.19 X10*6/uL (4.20-5.50); Red Cell Distribution Width 12.6 % (11.0-16.0); White Blood Count 7.4 X10*3/uL (4.8-10.8)
[2022-11-02] MEDS: Acetaminophen 325 MG TABLET 975 MG PO (03:17)
[2022-11-02] MEDS: 0.9 % Sodium Chloride 1,000 ML 999 ML IVCONT (03:17)
[2022-11-02 03:21] VITALS: BP 104/54; PULSE 91; RESP 22; TEMP 37; O2SAT 95
--- NOTE | 2022-11-02 03:25 | PC.NURSE ---
Pt's V/S are stable, Pt's is at bedside. She has been having nausea and abd pain x 3 days ago.
[2022-11-02 03:27] LABS: Alanine Aminotransferase 19 U/L (0-31); Albumin Level 4.4 g/dL (3.5-5.0); Alkaline Phosphatase 79 U/L (39-117); Anion Gap 15 (12-20); Aspartate Amino Transferase 19 U/L (5-31); Bilirubin Direct < 0.2 mg/dL (0.0-0.5); Bilirubin Total 0.4 mg/dL (0.0-1.0); Blood Urea Nitrogen 11 mg/dL (9-16); Calcium 9.3 mg/dL (8.4-10.2); Carbon Dioxide 21 mmol/L (22-29); Chloride 104 mmol/L (96-108); Creatinine Clr Calc Pharmacy 123.3; Estimated Glomerular Filt Rate > 60; Glucose Random 108 mg/dL (60-115); Lipase 17 U/L (8-78); Potassium 3.7 mmol/L (3.3-5.1); Sodium 136 mmol/L (135-145); Total Protein 7.8 g/dL (6.5-8.0)
== END 2022-11-02 05:07 | disposition home or self-care (01) ==
PROVIDERS: Emergency Provider Emergency Medicine
DX: B34.9 Viral infection, unspecified (principal); R51.9 Headache, unspecified; R50.9 Fever, unspecified; Z20.822 Contact with and (suspected) exposure to COVID-19
CPT/HCPCS: 0241U; 36415; 80048; 80076; 83690; 85025; 96361; 96374; 99284; 99285; J2405

== ENCOUNTER 2023-01-29 11:18 | Emergency (ER) | payer MEDICAID, SELFPAY ==
--- NOTE | ~2023-01-29 | XR_ITS ---
EXAMINATION: XR CHEST CLINICAL INFORMATION: Shortness of breath COMPARISON: Chest radiographs 10/20/2021, 09/10/2018 TECHNIQUE: Portable upright AP view of the chest was obtained. FINDINGS: No airspace consolidation or groundglass opacity or effusion. Heart size normal. Vascularity normal. Costophrenic sulci are clear. Hilar and mediastinal contours and visualized bony structures are unremarkable. XR/XR chest 1V IMPRESSION: Unremarkable examination.
[2023-01-29 11:21] VITALS: BP 135/80; PULSE 109; RESP 17; TEMP 36.8; O2SAT 98; BMI 37.2
--- NOTE | 2023-01-29 11:21 | ED_ITS ---
HPI - Chest Pain General Chief Complaint: Dyspnea <PRIYANKA Velazquez - Last Filed: 01/29/23 11:25> Stated Complaint: Chest pain/Asthma <PRIYANKA Velazquez - Last Filed: 01/29/23 11:25> Time Seen by Provider: 01/29/23 12:20 <PRIYANKA Velazquez - Last Filed: 01/29/23 11:25> Source: patient <Wellington Staples MD - Last Filed: 01/29/23 14:33> Mode of arrival: ambulatory <Wellington Staples MD - Last Filed: 01/29/23 14:33> Limitations: no limitations <Wellington Staples MD - Last Filed: 01/29/23 14:33> History of Present Illness HPI narrative: This is a 22 years old female presented to the emergency department with chief complaint of shortness of breath /exacerbation of asthma and chest pain ongoing for about 2 days <Wellington Staples MD - Last Filed: 01/29/23 14:33> MD complaint: chest pain <Wellington Stalpes MD - Last Filed: 01/29/23 14:33> Onset (ago): day(s) (2) <Wellington Staples MD - Last Filed: 01/29/23 14:33> Timing of current episode: now resolved <Wellington Staples MD - Last Filed: 01/29/23 14:33> Prior episodes: No <Wellington Staples MD - Last Filed: 01/29/23 14:33> Onset: during rest <Wellington Staples MD - Last Filed: 01/29/23 14:33> Pain location: substernal <Wellington Staples MD - Last Filed: 01/29/23 14:33> Pain radiation: none <Wellington Staples MD - Last Filed: 01/29/23 14:33> Quality: dull <Wellington Staples MD - Last Filed: 01/29/23 14:33> Relieving factors: nothing <Wellington Staples MD - Last Filed: 01/29/23 14:33> Exacerbating factors: nothing <Wellington Staples MD - Last Filed: 01/29/23 14:33> Risk Factors Coronary artery disease risk factors: none <Wellington Staples MD - Last Filed: 01/29/23 14:33> Thoracic aortic dissection risk factors: none <Wellington Staples MD - Last Filed: 01/29/23 14:33> Related Data Home Medications: Previous Rx's Medication Instructions Recorded albuterol sulfate 90 mcg/actuation 2 puff inhalation Q4-6H PRN 10/02/20 aerosol inhaler shortness of breath or wheezing #18 grams prednisone 20 mg tablet 40 mg PO DAILY 5 days #10 tabs 10/02/20 albuterol sulfate 0.63 mg/3 mL 0.63 mg (3 mL) inhalation QID PRN 10/20/21 solution for nebulization shortness of breath or wheezing #75 mL albuterol sulfate 90 mcg/actuation 1 inh inhalation QID PRN shortness 10/20/21 aerosol inhaler of breath or wheezing #8.5 grams nebulizers (AeroEclipse II #1 ea 10/20/21 Nebulizer) prednisone 20 mg tablet 40 mg PO DAILY rash 5 days #10 tabs 10/20/21 albuterol sulfate 90 mcg/actuation 2 inh inhalation Q4-6H PRN 07/11/22 aerosol inhaler shortness of breath or wheezing #8.5 grams fluticasone propionate 50 1 spray intranasal BID #16 grams 07/11/22 mcg/actuation nasal spray,suspension (Flonase Allergy Relief) amoxicillin 500 mg capsule 500 mg PO BID 7 days #14 caps 07/29/22 acetaminophen 500 mg capsule 500 mg PO QID PRN fever or pain 11/02/22 #20 caps ondansetron HCl 4 mg tablet 4 mg PO Q8H PRN nausea and 11/02/22 vomiting #10 tabs albuterol sulfate 90 mcg/actuation 1 inh inhalation QID PRN shortness 01/29/23 aerosol inhaler of breath or wheezing #8.5 grams prednisone 20 mg tablet 60 mg PO DAILY #12 tabs 01/29/23 <PRIYANKA Velazquez - Last Filed: 01/29/23 11:25> Allergies/Adverse Reactions: Allergies Allergy/AdvReac Type Severity Reaction Status Date / Time No Known Allergies Allergy Verified 01/29/23 11:21 <PRIYANKA Velazquez - Last Filed: 01/29/23 11:25> Review of Systems Constitutional: Constitutional: Reports no additional constitutional complaints <Wellington Staples MD - Last Filed: 01/29/23 14:33> Eyes: Eyes: Reports no additional eye complaints <Wellington Staples MD - Last Filed: 01/29/23 14:33> Respiratory: Respiratory: Reports no additional respiratory complaints and Reports wheezing <Wellington Staples MD - Last Filed: 01/29/23 14:33> Allergic/Immunologic: Allergic/Immunologic: Reports wheezing <Wellington Staples MD - Last Filed: 01/29/23 14:33> [facility] Past Medical History Attestation statement: The following information was validated with the patient. <Wellington Staples MD - Last Filed: 01/29/23 14:33> [facility] Narrative: Asthma, polycystic ovarian syndrome <Wellington Staples MD - Last Filed: 01/29/23 14:33> Medical History: Medical History Asthma Obesity PCOS (polycystic ovarian syndrome) <PRIYANKA Velazquez - Last Filed: 01/29/23 11:25> Social History Social History: Social History Alcohol intake: never Patient Tobacco Use Status: Never used Tobacco Advance Directives: No Advance Directives Information Provided: No Sexual orientation: Straight/Heterosexual Gender identity: Female <PRIYANKA Velazquez - Last Filed: 01/29/23 11:25> Physical Exam Vital Signs: Vital Signs: Last Vital Signs Temp 98.9 F 01/29/23 12:25 Pulse 99 01/29/23 12:31 Resp 18 01/29/23 12:31 BP 121/72 01/29/23 12:25 Pulse Ox 98 01/29/23 12:25 O2 Del Method 01/29/23 12:25 BMI result Body Mass Index 37.2 <PRIYANKA Velazquez - Last Filed: 01/29/23 11:25> Vital Signs: Last Vital Signs Temp 98.9 F 01/29/23 12:25 Pulse 99 01/29/23 12:31 Resp 18 01/29/23 12:31 BP 121/72 01/29/23 12:25 Pulse Ox 98 01/29/23 12:25 O2 Del Method 01/29/23 12:25 BMI result Body Mass Index 37.2 <Wellington Staples MD - Last Filed: 01/29/23 14:33> Const: General: cooperative <Wellington Staples MD - Last Filed: 01/29/23 14:33> Nutritional Appearance: well nourished <Wellington Satples MD - Last Filed: 01/29/23 14:33> Orientation/consciousness: patient oriented x3 <Wellington Staples MD - Last F iled: 01/29/23 14:33> Limitations: no limitations <Wellington Staples MD - Last Filed: 01/29/23 14:33> HEENT: Head: Yes normal to inspection <Wellington Staples MD - Last Filed: 01/29/23 14:33> Ears: hearing grossly normal bilaterally <Wellington Staples MD - Last Filed: 01/29/23 14:33> General nose exam: Normal external nose present <Wellington Staples MD - Last Filed: 01/29/23 14:33> Face and sinus: Yes normal facial exam <Wellington Staples MD - Last Filed: 01/29/23 14:33> Mouth: Normal oral and palatal mucosa present <Wellington Staples MD - Last Filed: 01/29/23 14:33> Neck: Neck: Yes normal visual inspection <Wellington Staples MD - Last Filed: 01/29/23 14:33> Thyroid: Thyroid normal <Wellington Staples MD - Last Filed: 01/29/23 14:33> Chest: Chest palpation & inspection: normal inspection of the chest <Wellington Staples MD - Last Filed: 01/29/23 14:33> Resp: Effort & Inspection: normal respiratory effort <Wellington Staples MD - Last Filed: 01/29/23 14:33> Auscultation: clear to auscultation bilaterally <Wellington Staples MD - Last Filed: 01/29/23 14:33> Cardio: Jugular venous distension: no JVD <Wellington Staples MD - Last Filed: 01/29/23 14:33> Rate: regular rate <Wellington Staples MD - Last Filed: 01/29/23 14:33> Rhythm: regular rhythm <Wellington Staples MD - Last Filed: 01/29/23 14:33> GI: Inspection: Yes normal to inspection <Wellington Staples MD - Last Filed: 01/29/23 14:33> Palpation (GI): Soft to palpation, not firm, nontender and no guarding <Wellington Staples MD - Last Filed: 01/29/23 14:33> Percussion: Yes normal to percussion <Wellington Staples MD - Last Filed: 01/29/23 14:33> Skin: General skin exam: no rashes or lesions noted and elasticity normal <Wellington Staples MD - Last Filed: 01/29/23 14:33> Lesions: no lesions <Wellington Staples MD - Last Filed: 01/29/23 14:33> Neuro: General: patient oriented x3 <Wellington Staples MD - Last Filed: 01/29/23 14:33> Course Course Course Narrative: RME--22yo F w/PMHx Asthma, PCOS, c/o chest tightness and SOB x few days. Has been using inhalers at home w/o relief Lungs CTA, sating 98% on RA COVID/FLU, CXR, Labs, and albuteol neb ordered <PRIYANKA Velazquez - Last Filed: 01/29/23 11:25> Medications Administered Discontinued Medications Generic Name Dose Route Start Last Admin Trade Name Freq PRN Reason Stop Dose Admin Albuterol Sulfate 2.5 mg 01/29/23 11:24 01/29/23 12:31 Albuterol Sulfate (0.083%) 2.5 Mg/3 Ml Vial.Neb INHALE 01/29/23 11:25 2.5 mg ONCE ONE Administration <PRIYANKA Velazquez - Last Filed: 01/29/23 11:25> Medications Administered Discontinued Medications Generic Name Dose Route Start Last Admin Trade Name Freq PRN Reason Stop Dose Admin Albuterol Sulfate 2.5 mg 01/29/23 11:24 01/29/23 12:31 Albuterol Sulfate (0.083%) 2.5 Mg/3 Ml Vial.Neb INHALE 01/29/23 11:25 2.5 mg ONCE ONE Administration <Wellington Staples MD - Last Filed: 01/29/23 14:33> Medical Decision Making Medical Decision Making [facility] Narrative: Patient presented with the shortness of breath and chest pain will do an EKG check labs at this time lungs are clear most likely this is due to asthma exacerbation <Wellington Staples MD - Last Filed: 01/29/23 14:33> Differential Diagnosis Differential Diagnoses: The differential diagnosis associated with the presentation includes <Wellington Staples MD - Last Filed: 01/29/23 14:33> Asthma exacerbation/ACS/pericarditis <Wellington Staples MD - Last Filed: 01/29/23 14:33> Admission/Observation Consideration of admission/observation: Escalation of care including admission/observation considered <Wellington Staples MD - Last Filed: 01/29/23 14:33> Lab Data [facility] Lab Attestation statement: I reviewed the patient's lab results. <Wellington Staples MD - Last Filed: 01/29/23 14:33> Result Diagrams: 01/29/23 11:30 01/29/23 11:30 <PRIYANKA Velazquez - Last Filed: 01/29/23 11:25> Labs: Lab Results 01/29/23 01/29/23 01/29/23 Range/Units 11:30 11:30 11:30 WBC 4.3 L (4.8-10.8) X10*3/uL RBC 4.89 (4.20-5.50) X10*6/uL Hgb 12.2 (12.0-16.0) g/dl Hct 38.5 (37.0-47.0) % MCV 78.7 L (80.0-98.0) fL MCH 24.9 L (27.0-33.0) pg MCHC 31.7 (31.0-35.0) g/dl RDW 13.8 (11.0-16.0) % Plt Count 225 (160-400) X10*3/uL MPV 10.9 (9.4-12.3) fL Immature Gran % (Auto) 0.2 (0.0-0.4) % Neut % (Auto) 69.5 (45-73) % Lymph % (Auto) 19.0 L (20-40) % [place]oto % (Auto) 8.0 (2-11) % Eos % (Auto) 3.1 (0-4) % Baso % (Auto) 0.2 (0-2) % Lymph # (Auto) 0.8 L (1.2-4.9) X10*3/uL [place] # (Auto) 0.3 (0.1-1.2) X10*3/uL Eos # (Auto) 0.1 (0.0-0.4) X10*3/uL Baso # (Auto) 0.0 (0.0-0.2) X10*3/uL Abs Immat Gran (auto) 0.01 (0.00-0.03) X10*3/uL Absolute Neuts (auto) 3.0 (2.0-8.3) x10*3/uL Absolute Nucleated RBC 0.000 (0.0-0.012) X10*3/uL Nucleated RBC % (auto) 0.0 (0.0-0.2) /100WBC Sodium 139 (135-145) mmol/L Potassium 3.9 (3.3-5.1) mmol/L Chloride 106 (96-108) mmol/L Carbon Dioxide 24 (22-29) mmol/L Anion Gap 13 (12-20) BUN 12 (9-16) mg/dL Creatinine 0.73 (0.5-1.4) mg/dL Estim Creat Clear Calc 132.7 Estimated GFR > 60 Random Glucose 79 (60-115) mg/dL Calcium 9.5 (8.4-10.2) mg/dL Total Bilirubin 0.4 (0.0-1.0) mg/dL Direct Bilirubin < 0.2 (0.0-0.5) mg/dL AST 20 (5-31) U/L ALT 18 (0-31) U/L Alkaline Phosphatase 70 (39-117) U/L Troponin I High Sens < 3.5 (<3.5-17.0) ng/L Total Protein 7.9 (6.5-8.0) g/dL Albumin 4.4 (3.5-5.0) g/dL COVID-19 (AUGIE) (Negative) COVID-19 Clin Com Influenza Type A (HARINDER) (Negative) Influenza Type B (HARINDER) (Negative) Influenza A & B Note 01/29/23 01/29/23 Range/Units 11:30 11:30 WBC (4.8-10.8) X10*3/uL RBC (4.20-5.50) X10*6/uL Hgb (12.0-16.0) g/dl Hct (37.0-47.0) % MCV (80.0-98.0) fL MCH (27.0-33.0) pg MCHC (31.0-35.0) g/dl RDW (11.0-16.0) % Plt Count (160-400) X10*3/uL MPV (9.4-12.3) fL Immature Gran % (Auto) (0.0-0.4) % Neut % (Auto) (45-73) % Lymph % (Auto) (20-40) % [place] % (Auto) (2-11) % Eos % (Auto) (0-4) % Baso % (Auto) (0-2) % Lymph # (Auto) (1.2-4.9) X10*3/uL [place] # (Auto) (0.1-1.2) X10*3/uL Eos # (Auto) (0.0-0.4) X10*3/uL Baso # (Auto) (0.0-0.2) X10*3/uL Abs Immat Gran (auto) (0.00-0.03) X10*3/uL Absolute Neuts (auto) (2.0-8.3) x10*3/uL Absolute Nucleated RBC (0.0-0.012) X10*3/uL Nucleated RBC % (auto) (0.0-0.2) /100WBC Sodium (135-145) mmol/L Potassium (3.3-5.1) mmol/L Chloride (96-108) mmol/L Carbon Dioxide (22-29) mmol/L Anion Gap (12-20) BUN (9-16) mg/dL Creatinine (0.5-1.4) mg/dL Estim Creat Clear Calc Estimated GFR Random Glucose (60-115) mg/dL Calcium (8.4-10.2) mg/dL Total Bilirubin (0.0-1.0) mg/dL Direct Bilirubin (0.0-0.5) mg/dL AST (5-31) U/L ALT (0-31) U/L Alkaline Phosphatase (39-117) U/L Troponin I High Sens (<3.5-17.0) ng/L Total Protein (6.5-8.0) g/dL Albumin (3.5-5.0) g/dL COVID-19 (AUGIE) Negative (Negative) COVID-19 Clin Com See Note Influenza Type A (HARINDER) Negative (Negative) Influenza Type B (HARINDER) Negative (Negative) Influenza A & B Note See Note <PRIYANKA Velazquez - Last Filed: 01/29/23 11:25> Lab Results 01/29/23 01/29/23 01/29/23 Range/Units 11:30 11:30 11:30 WBC 4.3 L (4.8-10.8) X10*3/uL RBC 4.89 (4.20-5.50) X10*6/uL Hgb 12.2 (12.0-16.0) g/dl Hct 38.5 (37.0-47.0) % MCV 78.7 L (80.0-98.0) fL MCH 24.9 L (27.0-33.0) pg MCHC 31.7 (31.0-35.0) g/dl RDW 13.8 (11.0-16.0) % Plt Count 225 (160-400) X10*3/uL MPV 10.9 (9.4-12.3) fL Immature Gran % (Auto) 0.2 (0.0-0.4) % Neut % (Auto) 69.5 (45-73) % Lymph % (Auto) 19.0 L (20-40) % [place] % (Auto) 8.0 (2-11) % Eos % (Auto) 3.1 (0-4) % Baso % (Auto) 0.2 (0-2) % Lymph # (Auto) 0.8 L (1.2-4.9) X10*3/uL [place] # (Auto) 0.3 (0.1-1.2) X10*3/uL Eos # (Auto) 0.1 (0.0-0.4) X10*3/uL Baso # (Auto) 0.0 (0.0-0.2) X10*3/uL Abs Immat Gran (auto) 0.01 (0.00-0.03) X10*3/uL Absolute Neuts (auto) 3.0 (2.0-8.3) x10*3/uL Absolute Nucleated RBC 0.000 (0.0-0.012) X10*3/uL Nucleated RBC % (auto) 0.0 (0.0-0.2) /100WBC Sodium 139 (135-145) mmol/L Potassium 3.9 (3.3-5.1) mmol/L Chloride 106 (96-108) mmol/L Carbon Dioxide 24 (22-29) mmol/L Anion Gap 13 (12-20) BUN 12 (9-16) mg/dL Creatinine 0.73 (0.5-1.4) mg/dL Estim Creat Clear Calc 132.7 Estimated GFR > 60 Random Glucose 79 (60-115) mg/dL Calcium 9.5 (8.4-10.2) mg/dL Total Bilirubin 0.4 (0.0-1.0) mg/dL Direct Bilirubin < 0.2 (0.0-0.5) mg/dL AST 20 (5-31) U/L ALT 18 (0-31) U/L Alkaline Phosphatase 70 (39-117) U/L Troponin I High Sens < 3.5 (<3.5-17.0) ng/L Total Protein 7.9 (6.5-8.0) g/dL Albumin 4.4 (3.5-5.0) g/dL COVID-19 (AUGIE) (Negative) COVID-19 Clin Com Influenza Type A (HARINDER) (Negative) Influenza Type B (HARINDER) (Negative) Influenza A & B Note 01/29/23 01/29/23 Range/Units 11:30 11:30 WBC (4.8-10.8) X10*3/uL RBC (4.20-5.50) X10*6/uL Hgb (12.0-16.0) g/dl Hct (37.0-47.0) % MCV (80.0-98.0) fL MCH (27.0-33.0) pg MCHC (31.0-35.0) g/dl RDW (11.0-16.0) % Plt Count (160-400) X10*3/uL MPV (9.4-12.3) fL Immature Gran % (Auto) (0.0-0.4) % Neut % (Auto) (45-73) % Lymph % (Auto) (20-40) % [place] % (Auto) (2-11) % Eos % (Auto) (0-4) % Baso % (Auto) (0-2) % Lymph # (Auto) (1.2-4.9) X10*3/uL [place] # (Auto) (0.1-1.2) X10*3/uL Eos # (Auto) (0.0-0.4) X10*3/uL Baso # (Auto) (0.0-0.2) X10*3/uL Abs Immat Gran (auto) (0.00-0.03) X10*3/uL Absolute Neuts (auto) (2.0-8.3) x10*3/uL Absolute Nucleated RBC (0.0-0.012) X10*3/uL Nucleated RBC % (auto) (0.0-0.2) /100WBC Sodium (135-145) mmol/L Potassium (3.3-5.1) mmol/L Chloride (96-108) mmol/L Carbon Dioxide (22-29) mmol/L Anion Gap (12-20) BUN (9-16) mg/dL Creatinine (0.5-1.4) mg/dL Estim Creat Clear Calc Estimated GFR Random Glucose (60-115) mg/dL Calcium (8.4-10.2) mg/dL Total Bilirubin (0.0-1.0) mg/dL Direct Bilirubin (0.0-0.5) mg/dL AST (5-31) U/L ALT (0-31) U/L Alkaline Phosphatase (39-117) U/L Troponin I High Sens (<3.5-17.0) ng/L Total Protein (6.5-8.0) g/dL Albumin (3.5-5.0) g/dL COVID-19 (AUGIE) Negative (Negative) COVID-19 Clin Com See Note Influenza Type A (HARINDER) Negative (Negative) Influenza Type B (HARINDER) Negative (Negative) Influenza A & B Note See Note <Wellington Staples MD - Last Filed: 01/29/23 14:33> Independent Interpretation I performed an independent interpretation of an: EKG and Plain X-Ray <Wellington Staples MD - Last Filed: 01/29/23 14:33> Interpretation: EKG shows normal sinus rhythm rate 99 no ischemia <Wellington Staples MD - Last Filed: 01/29/23 14:33> Radiology Impression Discussion of test interpretation with radiology: I have reviewed the radiologist's reading. <Wellington Staples MD - Last Filed: 01/29/23 14:33> Radiologist Impression: XR CHEST CLINICAL INFORMATION: Shortness of breath COMPARISON: Chest radiographs 10/20/2021, 09/10/2018 TECHNIQUE: Portable upright AP view of the chest was obtained. FINDINGS: No airspace consolidation or groundglass opacity or effusion. Heart size normal. Vascularity normal. Costophrenic sulci are clear. Hilar and mediastinal contours and visualized bony structures are unremarkable. XR/XR chest 1V IMPRESSION: Unremarkable examination. ? Dictated By: Mandeep Demarco MD Signed By: <Electronically signed by Mandeep Demarco MD in [facility]> 01/29/23 1427 DD/ 1248 TD/TT:? Housing Specialist: CARR <Wellington Staples MD - Last Filed: 01/29/23 14:33> Chronic Conditions Patient?s care impacted by: Other (asthma) <Wellington Staples MD - Last Filed: 01/29/23 14:33> Discharge Plan Discharge Clinical Impression: Asthma, Asthma exacerbation <PRIYANKA Velazquez - Last Filed: 01/29/23 11:25> Patient Disposition: Home, Self-Care <PRIYANKA Velazquez - Last Filed: 01/29/23 11:25> Instructions: Asthma (ED) <PRIYANKA Velazquez - Last Filed: 01/29/23 11:25> Prescriptions: New albuterol sulfate 90 mcg/actuation HFA aerosol inhaler 1 inh inhalation QID PRN (Reason: shortness of breath or wheezing) Qty: 8.5 0RF prednisone 20 mg tablet 60 mg PO DAILY Qty: 12 0RF No Action albuterol sulfate 90 mcg/actuation HFA aerosol inhaler 2 puff inhalation Q4-6H PRN (Reason: shortness of breath or wheezing) Qty: 18 1RF prednisone 20 mg tablet 40 mg PO DAILY 5 Days Qty: 10 0RF albuterol sulfate 90 mcg/actuation HFA aerosol inhaler 1 inh inhalation QID PRN (Reason: shortness of breath or wheezing) Qty: 8.5 0RF albuterol sulfate 0.63 mg/3 mL solution for nebulization 0.63 mg inhalation QID PRN (Reason: shortness of breath or wheezing) Qty: 75 0RF (DME) AeroEclipse II Nebulizer Misc See Rx Instructions .ROUTE .MEDSUPPLY Qty: 1 0RF Rx Instructions: As directed prednisone 20 mg tablet 40 mg PO DAILY 5 Days Qty: 10 0RF albuterol sulfate 90 mcg/actuation HFA aerosol inhaler 2 inh inhalation Q4-6H PRN (Reason: shortness of breath or wheezing) Qty: 8.5 0RF fluticasone propionate [Flonase Allergy Relief] 50 mcg/actuation spray,suspension 1 spray intranasal BID Qty: 16 0RF Rx Instructions: administer into each nostril amoxicillin 500 mg capsule 500 mg PO BID 7 Days Qty: 14 0RF acetaminophen 500 mg capsule 500 mg PO QID PRN (Reason: fever or pain) Qty: 20 0RF ondansetron HCl 4 mg tablet 4 mg PO Q8H PRN (Reason: nausea and vomiting) Qty: 10 0RF <PRIYANKA Velazquez - Last Filed: 01/29/23 11:25> Referrals: [facility] [Primary Care Provider] - 2 days <PRIYANKA Velazquez - Last Filed: 01/29/23 11:25> Stand Alone Forms: Work/School Release <PRIYANKA Velazquez - Last Filed: 01/29/23 11:25>
--- NOTE | 2023-01-29 11:21 | ECG_ITS ---
Test Reason : sob Blood Pressure : / mmHG Vent. Rate : 099 BPM Atrial Rate : 099 BPM P-R Int : 134 ms QRS Dur : 084 ms QT Int : 322 ms P-R-T Axes : 034 050 010 degrees QTc Int : 413 ms Normal sinus rhythm Normal ECG When compared with ECG of 18-APR-2022 13:39, No significant change was found Referred By: Jessie Jimenez Electronically Signed By:Miguel Carrillo
[2023-01-29 11:37] LABS: MANUAL DIFF FLAG NO
[2023-01-29 11:44] LABS: Basophils Percent Auto 0.2 % (0-2); Eosinophils Absolute Auto 0.1 X10*3/uL (0.0-0.4); Eosinophils Percent Auto 3.1 % (0-4); Hematocrit 38.5 % (37.0-47.0); Hemoglobin 12.2 g/dl (12.0-16.0); Imm Gran Abs Auto 0.01 X10*3/uL (0.00-0.03); Imm Gran Pct Auto 0.2 % (0.0-0.4); Lymphocytes Absolute Auto 0.8 X10*3/uL (1.2-4.9); Mean Corpuscular HGB Conc 31.7 g/dl (31.0-35.0); Mean Corpuscular Hemoglobin 24.9 pg (27.0-33.0); Mean Corpuscular Volume 78.7 fL (80.0-98.0); Mean Platelet Volume 10.9 fL (9.4-12.3); Monocytes Absolute Auto 0.3 X10*3/uL (0.1-1.2); Neutrophils Percent Auto 69.5 % (45-73); Platelet Count 225 X10*3/uL (160-400); Red Blood Count 4.89 X10*6/uL (4.20-5.50); Red Cell Distribution Width 13.8 % (11.0-16.0); White Blood Count 4.3 X10*3/uL (4.8-10.8)
[2023-01-29 11:57] LABS: Alanine Aminotransferase 18 U/L (0-31); Albumin Level 4.4 g/dL (3.5-5.0); Alkaline Phosphatase 70 U/L (39-117); Anion Gap 13 (12-20); Aspartate Amino Transferase 20 U/L (5-31); Bilirubin Direct < 0.2 mg/dL (0.0-0.5); Bilirubin Total 0.4 mg/dL (0.0-1.0); Blood Urea Nitrogen 12 mg/dL (9-16); Calcium 9.5 mg/dL (8.4-10.2); Carbon Dioxide 24 mmol/L (22-29); Chloride 106 mmol/L (96-108); Creatinine Clr Calc Pharmacy 132.7; Estimated Glomerular Filt Rate > 60; Glucose Random 79 mg/dL (60-115); Potassium 3.9 mmol/L (3.3-5.1); Sodium 139 mmol/L (135-145); Total Protein 7.9 g/dL (6.5-8.0)
[2023-01-29 12:01] LABS: COVID-19 Test Negative (Negative); IDNOW Serial# 08D9AD1C; IDNOW Serial# BCCEAD1C; Influenza A Negative (Negative); Influenza B2 Negative (Negative)
[2023-01-29 12:11] LABS: Troponin-I High Sensitivity < 3.5 ng/L (<3.5-17.0)
[2023-01-29 12:25] VITALS: BP 121/72; PULSE 97; RESP 17; TEMP 37.2; O2SAT 98
[2023-01-29 12:31] VITALS: PULSE 99; RESP 18; O2SAT 98
[2023-01-29] MEDS: Albuterol Sulfate (0.083%) 2.5 MG/3 ML VIAL.NEB INHALE (12:31)
[2023-01-29 14:43] VITALS: BP 113/84; PULSE 103; RESP 20; O2SAT 100
== END 2023-01-29 14:44 | disposition home or self-care (01) ==
LOC: HO.ED 12:56
PROVIDERS: Physician Assistant; Emergency Provider Emergency Medicine
DX: J45.901 Unspecified asthma with (acute) exacerbation (principal); R06.00 Dyspnea, unspecified; R07.89 Other chest pain; Z20.822 Contact with and (suspected) exposure to COVID-19; Z20.828 Contact with and (suspected) exposure to other viral communicable diseases; Z79.899 Other long term (current) drug therapy
CPT/HCPCS: 36415; 71045; 80048; 80076; 84484; 85025; 87502; 87635; 93005; 94640; 99284; 99285

== ENCOUNTER 2023-05-29 12:57 | Outpatient (AMB) | payer MEDICAID, SELFPAY ==
[2023-05-29 12:59] VITALS: BP 130/80; BMI 38.1
--- NOTE | 2023-05-29 12:59 | A.OFFVIS_ITS ---
Intake Vital Signs 05/29/23 12:59 Height 5 ft 3 in Weight 215 lb BMI 38.1 BP 130/80 Blood Pressure Location Rt brachial Position Sitting Intake Visit Reasons: vaginal bleeding Reimbursement Manager Required: No Accompanied by: Self / Same As Patient Allergies No Known Allergies Allergy (Verified 05/29/23 13:02) Is last menstrual period known: Yes Last menstrual period: 05/14/23 HPI vaginal bleeding HPI Details Patient is here to discuss her vaginal bleeding. She has been diagnosed with PCOS in the past. She has had discussions with previous providers about PCOS. She was recommended to work on weight loss and keep track of her cycles and recommended to try control pills and she had declined them at previous visits. Now in in the last year and half to 2 years since she was last seen for these issues she has she has continued to be seeking she is taking gummy vitamins. But no matter what she does she seems to gain weight not lose it she works in a stressful job and when she gains the weight it is so discouraging to her that she ends up binge eating out of frustration. Her periods have mostly generally come once a month the same time of the month though she does not keep track really but 1 other time a few months ago she bled for a few weeks at a time and now she has been bleeding since the end of April and it is almost a month or ready it seems to want to stop and then it starts back again and sometimes it is can be light but she has to wear a pad all the time to she does not get caught. She is frustrated and wants to do something at this point she did start going to the gym at [employer] with her . She starts out doing cardio and then weights and arm and thigh exercises [facility] Medical History Asthma Obesity PCOS (polycystic ovarian syndrome) Family History (Updated 05/29/23 @ 13:08 by Sandra Rick CMA) Maternal Grandfather Stroke Paternal Grandmother Cancer Social History Alcohol intake: never Patient Tobacco Use Status: Never used Tobacco Sexual orientation: Straight/Heterosexual Gender identity: Female Female Reproductive History Menstrual Age of Menarche: 12 Date of last menstrual period: 05/14/23 Total pregnancies: 0 Physical Exam Vital Signs: Last Vital Signs BP 130/80 07/13/23 12:59 BMI result Body Mass Index 38.1 Assessment & Plan Assessment & Plan (1) Obesity: Code(s): E66.9 - Obesity, unspecified (2) Heavy menstrual bleeding: Code(s): N92.0 - Excessive and frequent menstruation with regular cycle (3) Hirsutism: Code(s): L68.0 - Hirsutism (4) PCOS (polycystic ovarian syndrome): Code(s): E28.2 - Polycystic ovarian syndrome (5) Borderline blood pressure: Code(s): R03.0 - Elevated blood-pressure reading, without diagnosis of hypertension Plan ---Discussed PCOS in general and specifically about the interplay of the abnormal hormonal milieu related to being overweight, with the elevations of many hormone levels, including testosterone and estrogen, as well as others that contribute to cycles that are anovulatory and therefore prolonged, and when periods do come they come very heavy, and can contribute to lots of cramping, with passage of clots and anemia. Discussed the common symptoms related to the elvated hormonal levels, including increased facial hair, male pattern hair thinning, acne, and increased central abdominal girth. Discussed the interplay with difficulty getting when desired, but still possible, and therefore the need to contracept as appropriate and when ne eded. Discussed the role of weight loss as the primary, most important, and most likely to succeed, intervention, in achieving healthier status as regards PCOS, and ovulatory regular cycles. Additionally the very important relationship to elevated insulin levels, and blood sugars, and high risk of pre diabetes, progressing to diabetes as well as other metabolic syndromes related to this was discussed. Also discussed common interventions for some of the above, including if appropriate, use of oral contraceptives, and other methods but oral contraceptives are often the first-line. She is already had workups and ultrasounds that showed the classic polycystic findings but discussed that PCOS is much more than what is going on in the ovaries and the metabolic changes that go on in the face of the obesity is just as important to deal with. She is not exactly sure who her primary care provider is and review of past referrals from the [facility] indicated 2 names though she did not remember the visits per se they were brief visits with referrals to come to here. I offered her a referral to an loss prevention officer but she declined that for now though she did not know what an loss prevention officer was and I explained to her but for now she wants to start doing something. I discussed starting control pills as a step in the process though it would be difficult to figure out when to start and they may not control her periods for a few months because she has had this issue ongoing and the lining might have build up a little bit. I am recommending that she wait to start the pills until she believes that she has what feels to her with the cramping and everything else liked the start of a new menses. She says that that all of her periods typically start out that way but that some of them just linger on an on an on just as this 1 is. She had been having unprotected sex as recently as last week so that would be another reason to wait until she has her period as well I went over in detail what a pill pack looks like and how to take the 1st row followed by the 2nd at the 3rd and then the 4th and that during the 4th ideally she may get a light. 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 Then what her she has used to but it may take a while to regulate and she should basically continue 1 pill pack to the next and not stop despite was going on with bleeding once she starts. I reviewed danger signs and what to do if she had any of those symptoms. She has had some borderline high blood pressures in the past that I found in the chart and so we will need to check her blood pressure at the next visit. Additionally she needs to call the [facility] and make an appointment with her primary care provider. The patient also tells me she has never been screened with fasting lab values and I discussed again the connection between PCOS and diabetes and metabolic changes and hypertension and that she should be screened for everything Additionally we covered weight loss and ways to begin to achieve it. I did give her brochures for the Mediterranean diet and based health here diet. And also a handout from [employer] about PCOS to aid in her understanding of it. Also I reviewed the weight management program and what she might expect from that and I have placed a referral for that and ask her to make a call on her own because sometimes it takes getting a jumpstart on a weight loss program to break old patterns especially when she has been discouraged. Additionally even though she had been trying to get she has come to the place in her life where she feels like she needs to get healthier because if she conceives now she knows that she probably would just gain more weight in the and be less healthy and I reinforced the importance of losing weight before allowing a into her picture. We will see her again in 3 months for follow-up I have asked her to start keeping track of her periods and all bleeding and also keep track of what she eats and when and also her activity. r Orders: Referrals Medical Weight Management Referral E28.2 - Polycystic ovarian syndrome, E66.9 - Obesity, unspecified, L68.0 - Hirsutism, N92.0 - Excessive and frequent menstruation with regular cycle, R03.0 - Elevated blood-pressure reading, without diagnosis of hypertension Medications: New desog-e.estradiol/e.estradiol 0.15-0.02 mgx21 /0.01 mg x 5 start at beg of next period 1 tab PO DAILY 84 tabs 3RF Coding Level of Care Code Est Pt Level 3 (14997) Diagnoses Obesity E66.9 Heavy menstrual bleeding N92.0 Hirsutism L68.0 PCOS (polycystic ovarian syndrome) E28.2 Borderline blood pressure R03.0 Time Spent (min) 65 Comment 100% spent [id number] discussing the complex issues of her health challenges and making
== END 2023-05-29 14:11 | disposition home or self-care (01) ==
LOC: HO.HWS 12:57
PROVIDERS: Visit Provider Advanced Practice Midwife
DX: E66.9 Obesity, unspecified (principal); N92.0 Excessive and frequent menstruation with regular cycle; L68.0 Hirsutism; E28.2 Polycystic ovarian syndrome; R03.0 Elevated blood-pressure reading, without diagnosis of hypertension
CPT/HCPCS: 99213

== ENCOUNTER → 2023-05-29 12:57 | Outpatient (BNVA) | payer MEDICAID, SELFPAY | PROVIDERS: Visit Provider Advanced Practice Midwife | DX: N92.0 Excessive and frequent menstruation with regular cycle (principal); L68.0 Hirsutism; E28.2 Polycystic ovarian syndrome; R03.0 Elevated blood-pressure reading, without diagnosis of hypertension; E66.9 Obesity, unspecified; Z68.38 Body mass index [BMI] 38.0-38.9, adult | CPT/HCPCS: 99213 ==

== ENCOUNTER 2023-09-08 10:30 | Outpatient (AMB) | payer MEDICAID, SELFPAY ==
--- NOTE | 2023-09-08 10:39 | A.OFFVIS_ITS ---
Intake Vital Signs 09/08/23 10:49 Height 5 ft 3 in Weight 220 lb BMI 39.0 BP 122/74 Intake Visit Reasons: 3 month ocp/ pcos/bp check/09/08 PT Con Allergies No Known Allergies Allergy (Verified 09/08/23 10:43) Medication List - Last Reconciled 09/08/23 by Stormy Gil CNM albuterol sulfate 90 mcg/actuation 1 inh inhalation QID PRN fluticasone propionate 50 mcg/actuation (Flonase Allergy Relief) 1 spray intranasal BID nebulizers (AeroEclipse II Nebulizer) As directed HPI 3 month ocp/ pcos/bp check/09/08 PT Con HPI Details Patient is scheduled for 3 month pill check PCOS blood pressure check. Patient states she never even started the pills patient states she has not been keeping track of her periods but they come at the 1st of the month. Then she said that actually that is not true and she was not really keeping track but it is sort is seen and liked take started at the beginning of the month but then she bleeds for 2 weeks and then it stops and then it comes again and she has clots in the past she has gone long periods without bleeding. She was doing re ally well for about a month going to the gym and feeling motivated in feeling good and feeling results and then she stopped and she does not know why and she just can not motivate herself anymore. She was trying to eat small portions and now she has gone back to her old habits. She did not want to take the control pills because she read that they make people gain weight but having not been on the pills she has gained 5 lb. She has been diagnosed with PCOS in the past. She states she had a Pap smear with Natalie Tineo when she turns 21 years old. She also has not made an appointment with her primary care provider yet she has an appointment at [facility] dental office this week and she plans to make an appointment with her primary care provider while she is there. 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 Work has been very stressful because her boss got fired for doing something not good. She does not have a therapist and she does not think she needs 1 she is not contraceptive thing but she does not think she wants to have a baby yet but she does have sex.. [facility] Medical History Asthma Obesity PCOS (polycystic ovarian syndrome) Family History (Updated 05/29/23 @ 13:08 by Sandra Rick [facility]) Maternal Grandfather Stroke Paternal Grandmother Cancer Social History Alcohol intake: never Patient Tobacco Use Status: Never used Tobacco Sexual orientation: Straight/Heterosexual Gender identity: Female Female Reproductive History Menstrual Age of Menarche: 12 Date of last menstrual period: 08/17/23 control method: none Total pregnancies: 0 Physical Exam Vital Signs: Last Vital Signs BP 122/74 09/08/23 10:49 BMI result Body Mass Index 39.0 Results Reviewed Results Reviewed: Previous results reviewed Assessment & Plan Assessment & Plan (1) Obesity: Code(s): E66.9 - Obesity, unspecified (2) Heavy menstrual bleeding: Code(s): N92.0 - Excessive and frequent menstruation with regular cycle (3) Hirsutism: Code(s): L68.0 - Hirsutism (4) PCOS (polycystic ovarian syndrome): Code(s): E28.2 - Polycystic ovarian syndrome (5) History of irregular menstrual cycles: Code(s): Z87.42 - Personal history of other diseases of the female genital tract Plan ---Discussed with pt, her wt, and BMI, and her goals. Discussed ideal dietary guidelines to assist in weight loss, focusing on vegetables and fruits and lean proteins, and minimizing fats and carbohydrates and eliminating empty calories. Discussed exercise, including regular, sufficient, and consistent cardio based exercise, and weight bearing exercise. Discussed barriers to exercise and healthy eating, and possible ways of establishing newer healthier habits. Discussed supports to help in her efforts, and timing issues. Discussed adequate sleep, and ways to achieve this. Discussed adequate water intake.-- ---Discussed PCOS in general and specifically about the interplay of the abnormal hormonal milieu related to being overweight, with the elevations of many hormone levels, including testosterone and estrogen, as well as others that contribute to cycles that are anovulatory and therefore prolonged, and when periods do come they come very heavy, and can contribute to lots of cramping, with passage of clots and anemia. Discussed the common symptoms related to the elvated hormonal levels, including increased facial hair, male pattern hair thinning, acne, and increased central abdominal girth. Discussed the interplay with difficulty getting when desired, but still possible, and therefore the need to contracept as appropriate and when needed. Discussed the role of weight loss as the primary, most important, and most likely to succeed, intervention, in achieving healthier status as regards PCOS, and ovulatory regular cycles. Additionally the very important relationship to elevated insulin levels, and blood sugars, and high risk of pre diabetes, progressing to diabetes as well as other metabolic syndromes related to this was discussed. Also discussed common interventions for some of the above, including if appropriate, use of oral contraceptives, and progestin iuds, and provera. Discussed very specifically that if she does not do something to manage her irregular bleeding pattern that further investigation will need to take place including endometrial biopsies to check for pre cancerous growth which is what can happen when periods of long amenorrhea go by followed by very headache the buildup of the lining of the uterus and development of precancerous cells. Discussed ways to cheaply add activity into her life if she can not go to the gym. For instance she has cans of beans in the house I recommend she put on some of her favorite music, take 1 can a beans in each hand and and do dancing with the weights of the cans of beans in her hands. Patient states that she wants to start the pills and I recommend that she wait until this bleeding is over wait until she gets what she perceives is a new regular. And start at the beginning of that. And take 1 pill every single day for at least 3 months to give it a chance to help regularize her cycle I did not promised that her periods will be come regular in that short amount of time because they have been so irregular for a long period of time. She wants to come back in 3 months because she wants to keep working on these issues. Previous issues also addressed see previous visit, Coding Level of Care Code Est Pt Level 3 (40415) Diagnoses Obesity E66.9 Heavy menstrual bleeding N92.0 Hirsutism L68.0 PCOS (polycystic ovarian syndrome) E28.2 History of irregular menstrual cycles Z87.42
[2023-09-08 10:49] VITALS: BP 122/74; BMI 39.0
== END 2023-09-08 11:17 | disposition home or self-care (01) ==
PROVIDERS: Visit Provider Advanced Practice Midwife
DX: E66.9 Obesity, unspecified (principal); N92.0 Excessive and frequent menstruation with regular cycle; L68.0 Hirsutism; E28.2 Polycystic ovarian syndrome; Z87.42 Personal history of other diseases of the female genital tract
CPT/HCPCS: 99213

== ENCOUNTER → 2023-09-08 10:30 | Outpatient (BNVA) | payer MEDICAID, SELFPAY | PROVIDERS: Visit Provider Advanced Practice Midwife | DX: N92.0 Excessive and frequent menstruation with regular cycle (principal); L68.0 Hirsutism; E28.2 Polycystic ovarian syndrome; E66.9 Obesity, unspecified; Z87.42 Personal history of other diseases of the female genital tract; Z68.39 Body mass index [BMI] 39.0-39.9, adult | CPT/HCPCS: 99212 ==

== ENCOUNTER 2023-09-11 10:49 | Emergency (ER) | payer MEDICAID, SELFPAY ==
[2023-09-11 10:50] VITALS: BP 148/78; PULSE 88; RESP 16; TEMP 38.6; O2SAT 97; BMI 39.0
--- NOTE | 2023-09-11 11:09 | ED_ITS ---
HPI - URI/Sore Throat General Chief Complaint: Upper Respiratory Symptoms Stated Complaint: flu symptoms , asthma Time Seen by Provider: 09/11/23 10:59 Source: patient Mode of arrival: ambulatory Limitations: no limitations History of Present Illness HPI Narrative: 23 yo female with history of asthma, PCOS, obesity who presents to the ER for evaluation of cough, sweats, body aches, joint pain for the last 2 days. She has asthma and has been using her albuterol inhaler with no improvement. She states she has been bringing up clear/white phlegm. She has had subjective fever and chills at home. Family at home has influenza. She is not vaccinated. MD elicited complaint: fever, cough, nasal congestion and other (body and joint pain) Pertinent past history: asthma Onset (ago): day(s) (2) Consistency: progressively worsening Severity: moderate Description of mucous: clear Able to tolerate fluids by mouth: Yes Exacerbating factors: nothing Relieving factors: nothing Context: sick contacts Associated symptoms: fever and chills Related Data Previous Rx's Medication Instructions Recorded nebulizers (AeroEclipse II #1 ea 10/20/21 Nebulizer) fluticasone propionate 50 1 spray intranasal BID #16 grams 07/11/22 mcg/actuation nasal spray,suspension (Flonase Allergy Relief) albuterol sulfate 90 mcg/actuation 1 inh inhalation QID PRN shortness 01/29/23 aerosol inhaler of breath or wheezing #8.5 grams ibuprofen 600 mg tablet 600 mg PO Q8H PRN fever or pain 09/11/23 #14 tabs Allergies Allergy/AdvReac Type Severity Reaction Status Date / Time No Known Allergies Allergy Verified 09/08/23 10:43 Review of Systems Review of Systems: Yes all other systems are reviewed and are negative [facility] Past Medical History Medical History Asthma Obesity PCOS (polycystic ovarian syndrome) Family History Family History (Updated 05/29/23 @ 13:08 by Sandra Rick CMA) Maternal Grandfather Stroke Paternal Grandmother Cancer Social History Social History Alcohol intake: never Patient Tobacco Use Status: Never used Tobacco Advance Directives: No Sexual orientation: Straight/Heterosexual Gender identity: Female Physical Exam Vital Signs: Vital Signs: Last Vital Signs Temp 101.4 F H 09/11/23 10:50 Pulse 88 09/11/23 10:50 Resp 16 09/11/23 10:50 BP 148/78 H 09/11/23 10:50 Pulse Ox 97 09/11/23 10:50 O2 Del Method Room Air 09/11/23 10:50 BMI result Body Mass Index 39.0 Appearance: Alert. Oriented X3. No acute distress. Head: normocephalic, atraumatic. Eyes: Pupils equal, round and reactive to light. ENT: Pharynx normal. No tonsillar swelling or exudate. Neck: Normal inspection. Neck supple. CVS: Normal heart rate and rhythm. Pulses normal. Respiratory: No respiratory distress. Breath sounds normal. Abdomen: Soft and nontender. +BS x4 Skin: Skin warm and dry. Normal skin color. Normal skin turgor. No rashes. Extremities: No lower extremity edema. No joint swelling. Neuro/psych: Oriented X 3. No motor deficit. No sensory deficit. CN II-XII intact. Normal speech and cognition. Medications Administered Discontinued Medications Generic Name Dose Route Start Last Admin Trade Name Freq PRN Reason Stop Dose Admin Ibuprofen 600 mg 09/11/23 10:59 09/11/23 11:14 Ibuprofen 600 Mg Tablet PO 09/11/23 11:00 600 mg ONCE ONE Administration Medical Decision Making Medical Decision Making [facility] Narrative: 23 yo female with history of asthma presenting with 2 days of URI symptoms w/ cough and body aches. +flu contact at home. febrile to 101.4 on arrival. lungs clear throughout, no wheezing or rhonchi. doubt pna or acute asthma exacerbation. tested positive for influenza A. discussed dx and supportive care. will hold off on tamiflu given her symptoms are mild. stable for d/c home with supportive care Differential Diagnosis Differential Diagnoses: The differential diagnosis associated with the presentation includes strep, covid, flu, rsv, other viral syndrome, bronchitis, pneumonia, acute asthma exacerbation Lab Data [facility] Lab Attestation statement: I reviewed the patient's lab results. Labs: Lab Results 09/11/23 Range/Units 10:56 COVID-19 (AUGIE) Negative (Negative) COVID-19 Clin Com See Note Influenza Type A (HARINDER) Positive A (Negative) Influenza Type B (HARINDER) Negative (Negative) Influenza A & B Note See Note External Record Review External record reviewed: Outpatient record and Prior outpatient labs Tests considered The following testing was considered but not selected: considered CXR but lungs clear throughout Prescription Management I considered prescription management with: Antiviral Chronic Conditions Patient?s care impacted by: Other (asthma) Critical Care Time Critical Care Time Critical Care Time: No Discharge Plan Discharge Clinical Impression: Influenza Patient Disposition: Home, Self-Care Instructions: Influenza (DC) Additional Instructions: You were found to be Influenza A POSITIVE today. Your exam and oxygen levels were normal. Treatment is supportive care. Rest. Drink plenty of fluids. Do not go out in public while you are not feeling well. Take over the counter cold/flu medications as needed for your symptoms. Take Tylenol and/or Motrin as needed for fevers and body aches. Follow up with your doctor as needed. If you develop new or worsening symptoms call 911 or come back to the ER for further evaluation. Prescriptions: New ibuprofen 600 mg tablet 600 mg PO Q8H PRN (Reason: fever or pain) Qty: 14 0RF No Action albuterol sulfate 90 mcg/actuation HFA aerosol inhaler 1 inh inhalation QID PRN (Reason: shortness of breath or wheezing) Qty: 8.5 0RF (DME) AeroEclipse II Nebulizer Misc See Rx Instructions .ROUTE .MEDSUPPLY Qty: 1 0RF Rx Instructions: As directed fluticasone propionate [Flonase Allergy Relief] 50 mcg/actuation spray,suspension 1 spray intranasal BID Qty: 16 0RF Rx Instructions: administer into each nostril Referrals: [facility] [Primary Care Provider] - Stand Alone Forms: Work/School Release
[2023-09-11] MEDS: Ibuprofen 600 MG TABLET PO (11:14)
[2023-09-11 11:21] LABS: COVID-19 Test Negative (Negative); IDNOW Serial# 9DB6401D; IDNOW Serial# BCCEAD1C; Influenza A Positive (Negative); Influenza B2 Negative (Negative)
== END 2023-09-11 11:41 | disposition home or self-care (01) ==
PROVIDERS: Emergency Provider Emergency Medicine
DX: J10.1 Influenza due to other identified influenza virus with other respiratory manifestations (principal); R05.9 Cough, unspecified; M79.10 Myalgia, unspecified site; R50.9 Fever, unspecified; J45.909 Unspecified asthma, uncomplicated; Z11.52 Encounter for screening for COVID-19; Z20.822 Contact with and (suspected) exposure to COVID-19; Z79.899 Other long term (current) drug therapy
CPT/HCPCS: 87502; 87635; 99283

== ENCOUNTER 2023-10-14 13:41 | Emergency (ER) | payer MEDICAID, SELFPAY ==
[2023-10-14 13:58] VITALS: BP 159/94; PULSE 98; RESP 16; TEMP 36.8; O2SAT 100; BMI 39.5
--- NOTE | 2023-10-14 13:58 | ED_ITS ---
HPI - General Adult General Chief complaint: Vaginal Bleeding Stated complaint: Stomach Pain Related Data Previous Rx's ?Medication ?Instructions ?Recorded nebulizers (AeroEclipse II #1 ea 10/20/21 Nebulizer) fluticasone propionate 50 1 spray intranasal BID #16 grams 07/11/22 mcg/actuation nasal spray,suspension (Flonase Allergy Relief) albuterol sulfate 90 mcg/actuation 1 inh inhalation QID PRN shortness 01/29/23 aerosol inhaler of breath or wheezing #8.5 grams ibuprofen 600 mg tablet 600 mg PO Q8H PRN fever or pain 09/11/23 #14 tabs desogestrel 0.15 mg-ethinyl 1 tab PO DAILY 28 days #28 tabs 10/15/23 estradiol 0.03 mg tablet (Apri) Allergies Allergy/AdvReac Type Severity Reaction Status Date / Time No Known Allergies Allergy Verified 11/05/23 08:31 [facility] Past Medical History Medical History Obesity PCOS (polycystic ovarian syndrome) Asthma Family History Family History Maternal Grandfather Stroke Paternal Grandmother Cancer Social History Social History Alcohol intake: never Patient Tobacco Use Status: Never used Tobacco Sexual orientation: Straight/Heterosexual Gender identity: Female Physical Exam ED Vital Signs: BMI result Body Mass Index 39.5 Course Course Course Narrative: This is an RME: Additional HPI, ROS, PE not included below will be deferred to primary provider. 23-year-old female presents with lower abdominal pain, vaginal bleeding for the past month. Patient reports she recently stopped her control last week, she reports she is going to 2 - 4 pads per hour. Doesnt think she is . Medical Decision Making Lab Data 10/14/23 14:30 10/14/23 14:30 Labs: Lab Results 10/14/23 10/14/23 Range/Units 14:30 16:37 WBC 7.0 (4.8-10.8) X10*3/uL RBC 4.75 (4.20-5.50) X10*6/uL Hgb 11.8 L (12.0-16.0) g/dl Hct 37.8 (37.0-47.0) % MCV 79.6 L (80.0-98.0) fL MCH 24.8 L (27.0-33.0) pg MCHC 31.2 (31.0-35.0) g/dl RDW 13.8 (11.0-16.0) % Plt Count 259 (160-400) X10*3/uL MPV 10.5 (9.4-12.3) fL Immature Gran % (Auto) 0.3 (0.0-0.4) % Neut % (Auto) 63.7 (45-73) % Lymph % (Auto) 29.9 (20-40) % [place] % (Auto) 4.7 (2-11) % Eos % (Auto) 1.0 (0-4) % Baso % (Auto) 0.4 (0-2) % Lymph # (Auto) 2.1 (1.2-4.9) X10*3/uL [place] # (Auto) 0.3 (0.1-1.2) X10*3/uL Eos # (Auto) 0.1 (0.0-0.4) X10*3/uL Baso # (Auto) 0.0 (0.0-0.2) X10*3/uL Abs Immat Gran (auto) 0.02 (0.00-0.03) X10*3/uL Absolute Neuts (auto) 4.5 (2.0-8.3) x10*3/uL Absolute Nucleated RBC 0.000 (0.0-0.012) X10*3/uL Nucleated RBC % (auto) 0.0 (0.0-0.2) /100WBC Sodium 138 (135-145) mmol/L Potassium 4.1 (3.3-5.1) mmol/L Chloride 108 (96-108) mmol/L Carbon Dioxide 23 (22-29) mmol/L Anion Gap 11 L (12-20) BUN 9 (9-16) mg/dL Creatinine 0.63 (0.5-1.4) mg/dL Estim Creat Clear Calc 157.7 Estimated GFR > 60 Random Glucose 104 (60-115) mg/dL Calcium 9.5 (8.4-10.2) mg/dL Magnesium 2.2 (1.6-2.6) mg/dL Total Bilirubin 0.2 (0.0-1.0) mg/dL AST 18 (5-31) U/L ALT 29 (0-31) U/L Alkaline Phosphatase 63 (39-117) U/L Total Protein 8.0 (6.5-8.0) g/dL Albumin 4.2 (3.5-5.0) g/dL Beta HCG, Quant < 2 mIU/mL Urine Color Yellow Urine Appearance Clear Urine pH 6.5 (5.0-9.0) Ur Specific [place] 1.015 (1.005-1.025) Urine Protein Negative (Neg-Trace) mg/dL Urine Glucose (UA) Negative (Negative) mg/dL Urine Ketones Negative (Negative) mg/dL Urine Blood Large (3+) H (Negative) Urine Nitrite Negative (Negative) Ur Leukocyte Esterase Negative (Negative) Urine RBC >20 H (0-2) /HPF Urine WBC 0-5 (0-5) /HPF Ur Squamous Epith Cells 0-2 (0-2) /HPF Urine Bacteria None Seen (None Seen) Hyaline Casts 0-2 (0-2) /LPF Urine Test NEGATIVE (NEGATIVE) Blood Type A Positive Antibody Screen NEGATIVE Discharge Plan Discharge Clinical Impression: Eloped from emergency department Patient Disposition: Left W/O Completing Treatment Prescriptions: No Action albuterol sulfate 90 mcg/actuation HFA aerosol inhaler 1 inh inhalation QID PRN (Reason: shortness of breath or wheezing) Qty: 8.5 0RF (DME) AeroEclipse II Nebulizer Misc See Rx Instructions .ROUTE .MEDSUPPLY Qty: 1 0RF Rx Instructions: As directed fluticasone propionate [Flonase Allergy Relief] 50 mcg/actuation spray,suspension 1 spray intranasal BID Qty: 16 0RF Rx Instructions: administer into each nostril ibuprofen 600 mg tablet 600 mg PO Q8H PRN (Reason: fever or pain) Qty: 14 0RF desogestrel-ethinyl estradiol [Apri] 0.15-0.03 mg tablet 1 tab PO DAILY 28 Days Qty: 28 2RF Discharge Date/Time: 10/15/23 01:25
[2023-10-14 14:35] LABS: MANUAL DIFF FLAG NO
[2023-10-14 14:42] LABS: Basophils Percent Auto 0.4 % (0-2); Eosinophils Absolute Auto 0.1 X10*3/uL (0.0-0.4); Hematocrit 37.8 % (37.0-47.0); Hemoglobin 11.8 g/dl (12.0-16.0); Imm Gran Abs Auto 0.02 X10*3/uL (0.00-0.03); Imm Gran Pct Auto 0.3 % (0.0-0.4); Lymphocytes Absolute Auto 2.1 X10*3/uL (1.2-4.9); Lymphocytes Percent Auto 29.9 % (20-40); Mean Corpuscular HGB Conc 31.2 g/dl (31.0-35.0); Mean Corpuscular Hemoglobin 24.8 pg (27.0-33.0); Mean Corpuscular Volume 79.6 fL (80.0-98.0); Mean Platelet Volume 10.5 fL (9.4-12.3); Monocytes Absolute Auto 0.3 X10*3/uL (0.1-1.2); Monocytes Percent Auto 4.7 % (2-11); Neutrophils Absolute Auto 4.5 x10*3/uL (2.0-8.3); Neutrophils Percent Auto 63.7 % (45-73); Platelet Count 259 X10*3/uL (160-400); Red Blood Count 4.75 X10*6/uL (4.20-5.50); Red Cell Distribution Width 13.8 % (11.0-16.0)
[2023-10-14 14:58] LABS: Alanine Aminotransferase 29 U/L (0-31); Albumin Level 4.2 g/dL (3.5-5.0); Alkaline Phosphatase 63 U/L (39-117); Anion Gap 11 (12-20); Aspartate Amino Transferase 18 U/L (5-31); Bilirubin Total 0.2 mg/dL (0.0-1.0); Blood Urea Nitrogen 9 mg/dL (9-16); Calcium 9.5 mg/dL (8.4-10.2); Carbon Dioxide 23 mmol/L (22-29); Chloride 108 mmol/L (96-108); Creatinine Clr Calc Pharmacy 157.7; Estimated Glomerular Filt Rate > 60; Glucose Random 104 mg/dL (60-115); Magnesium 2.2 mg/dL (1.6-2.6); Potassium 4.1 mmol/L (3.3-5.1); Sodium 138 mmol/L (135-145)
[2023-10-14 14:59] LABS: HCG Quantitative < 2 mIU/mL
[2023-10-14 16:51] LABS: Appearance Urine Clear; Color Urine Yellow; Glucose Urine UA Negative (Negative); Leukocyte Esterase Urine Negative (Negative); Nitrite Urine Negative (Negative); PH 6.5 (5.0-9.0); Specific Gravity - Urine 1.015 (1.005-1.025); UMIC TRIGGER UACC YES; Urine Blood Large (3+) (Negative); Urine Ketones Negative (Negative); Urine Protein Negative (Neg-Trace)
[2023-10-14 17:06] LABS: Bacteria Urine None Seen (None Seen); Hyaline Casts Urine 0-2 /LPF (0-2); RBC Urine >20 /HPF (0-2); Squamous Epithelial Cell Urine 0-2 /HPF (0-2); WBC Urine 0-5 /HPF (0-5)
[2023-10-14 17:07] LABS: UPreg QC Valid YES; Urine Pregnancy NEGATIVE (NEGATIVE)
--- NOTE | 2023-10-15 01:17 | PC.NURSE ---
pt called and was in waiting room for brief moments. every time this rn checks on pt to bring in she is not there.
== END 2023-10-15 01:25 | disposition left against medical advice (07) ==
PROVIDERS: Physician Assistant; Emergency Provider Emergency Medicine
DX: R10.30 Lower abdominal pain, unspecified (principal); N93.9 Abnormal uterine and vaginal bleeding, unspecified; Z53.21 Procedure and treatment not carried out due to patient leaving prior to being seen by health care provider
CPT/HCPCS: 36415; 80053; 81001; 81003; 81025; 83735; 84702; 85025; 86850; 86900; 86901; 99282; 99283

== ENCOUNTER 2023-10-15 08:40 | Emergency (ER) | payer MEDICAID, SELFPAY ==
--- NOTE | ~2023-10-15 | US_ITS ---
EXAMINATION: US PELVIS CLINICAL INFORMATION: Pelvic pain and bleeding with history of polycystic ovaries COMPARISON: Pelvic ultrasound 09/14/2021 TECHNIQUE: Ultrasound of the pelvis is performed using both transabdominal and transvaginal transducers along with Doppler. Transvaginal imaging is performed due to inadequate visualization transabdominally. FINDINGS: Uterus: The uterus is anteverted anteflexed and measures 9.1 x 4.2 x 4.6 cm for a volume of 80 mL. The double wall endometrial thickness is increased at 19 mm and demonstrates hypervascularity. A polypoid mass is not seen. The uterus is smooth in contour and has normal myometrial echogenicity. No visible fibroid. Nabothian cysts are present. Adnexa: Both ovaries are visualized. There is normal color flow to the adnexa. There is no ovarian torsion. There is no pelvic ascites or fluid collection. Right ovary measures 5.3 x 2.1 x 3.0 cm for a volume of 17.6 mL and contains multiple small peripheral cysts. Left ovary measures 5.0 x 3.1 x 2.7 cm for a volume of 21.7 mL and contains multiple small peripheral cysts. US/US pelvic and transvaginal IMPRESSION: 1. Thickened hypervascular endometrium. Recommend repeat ultrasound in one to 2 months. 2. Enlarged ovaries with multiple small cysts consistent with polycystic ovarian syndrome.
[2023-10-15 08:45] VITALS: BP 134/70; PULSE 84; RESP 18; TEMP 36.6; O2SAT 98; BMI 39.0
--- NOTE | 2023-10-15 08:56 | ED_ITS ---
HPI - Female Genitourinary General Chief complaint: Vaginal Bleeding Stated complaint: Vaginal bleeding 1 month Time Seen by Provider: 10/15/23 08:52 Source: patient and old records reviewed Mode of arrival: ambulatory Limitations: no limitations History of Present Illness HPI Narrative: 23 yo female with PMH of irregular periods and PCOS never really took her OCPs didn't like how they felt. She notes bleeding x 1 month on and off with clots and like a period. Has not seen her OB now feels dizzy and tired and weak. MD elicited complaint: vaginal bleeding Pertinent past history: other (PCOS) Onset (ago): month(s) (1) Location of symptoms: suprapubic Quality of pain: cramping Consistency: intermittent Vaginal discharge: none Vaginal bleeding: moderate Exacerbating factors: none Relieving factors: none Associated symptoms: weakness Treatment prior to arrival: none Related Data Previous Rx's Medication Instructions Recorded nebulizers (AeroEclipse II #1 ea 10/20/21 Nebulizer) fluticasone propionate 50 1 spray intranasal BID #16 grams 07/11/22 mcg/actuation nasal spray,suspension (Flonase Allergy Relief) albuterol sulfate 90 mcg/actuation 1 inh inhalation QID PRN shortness 01/29/23 aerosol inhaler of breath or wheezing #8.5 grams ibuprofen 600 mg tablet 600 mg PO Q8H PRN fever or pain 09/11/23 #14 tabs Allergies Allergy/AdvReac Type Severity Reaction Status Date / Time No Known Allergies Allergy Verified 10/15/23 08:45 Review of Systems 2 Review of Systems: Constitutional : No Fever, No Chills ENT/Mouth : No sore throat, No Rhinorrhea Eyes: No Eye Pain, No Redness Cardiovascular : No Chest Pain, No SOB Respiratory : No Cough, No Sputum, No Wheezing Gastrointestinal : positive Nausea, No Vomiting, No Diarrhea, positive abdominal pain, Genitourinary : positive irregular bleeding, No Dysuria, No Urinary Frequency, positive pelvic pain Musculoskeletal : No Myalgias Skin : No rash Neuro : No Weakness, No Headache Psych : No Anxiety/Panic, No Depression Heme/Lymph: No bruising, No Lymphadenopathy Endocrine : No Polyuria, No Polydipsia All other systems reviewed and are negative PMFSH Past Medical History Attestation statement: The following information was validated with the patient. Source: old records reviewed Medical History Obesity PCOS (polycystic ovarian syndrome) Asthma Family History Family History (Updated 05/29/23 @ 13:08 by Sandra Rick CMA) Maternal Grandfather Stroke Paternal Grandmother Cancer Social History Social History Alcohol intake: never Patient Tobacco Use Status: Never used Tobacco Smoked in Last 30 Days: No Use of substances other than those prescribed or required for medical reasons: No Advance Directives: No Patient : No Sexual orientation: Straight/Heterosexual Gender identity: Female Physical Exam 2 Vital Signs: Vital Signs: Last Vital Signs Temp 98.3 F 10/15/23 09:02 Pulse 93 10/15/23 11:01 Resp 16 10/15/23 11:01 BP 127/67 10/15/23 11:01 Pulse Ox 98 10/15/23 11:01 O2 Del Method Room Air 10/15/23 11:01 BMI result Body Mass Index 39.0 Appearance: Alert. Oriented X3. No acute distress. Eyes: Pupils equal, round and reactive to light. ENT: Pharynx normal. Neck: Normal inspection. Neck supple. CVS: Normal heart rate and rhythm. Pulses normal. Respiratory: No respiratory distress. Breath sounds normal. Abdomen: Soft and mild suprapubic ttp : 3 scopettes of blood, moderate blood on bed pad Skin: Skin warm and dry. Normal skin color. Normal skin turgor. Extremities: No lower extremity edema. No calf ttp Neuro: Oriented X 3. No motor deficit. No sensory deficit. Medications Administered Discontinued Medications Generic Name Dose Route Start Last Admin Trade Name Juvenalq PRN Reason Stop Dose Admin Ibuprofen 600 mg 10/15/23 09:00 10/15/23 09:12 Ibuprofen 600 Mg Tablet PO 10/15/23 09:01 600 mg ONCE ONE Administration Medical Decision Making Medical Decision Making MDM Narrative: 23 yo female with hx of PCOS not on OCPs here with c/o bleeding x 1 month - neg quant yesterday now feeling more tired and fatigued, no hx of smoking/VTE at this time repeat CBC and US will likely consult OB about OCP use or start on lysteda. Suspect hormonal issue and bleeding Differential Diagnosis Differential Diagnoses: The differential diagnosis associated with the presentation includes DUB, PCOS, cyst Admission/Observation Consideration of admission/observation: Escalation of care including admission/observation considered DC out to OB office Consult Healthcare Provider Management of the patient was discussed with: Party Director (Dr. Aponte to see in office) Lab Data MDM Lab Attestation statement: I reviewed the patient's lab results. 10/15/23 09:09 Labs: Lab Results 10/15/23 Range/Units 09:09 WBC 7.8 (4.8-10.8) X10*3/uL RBC 4.81 (4.20-5.50) X10*6/uL Hgb 12.1 (12.0-16.0) g/dl Hct 37.5 (37.0-47.0) % MCV 78.0 L (80.0-98.0) fL MCH 25.2 L (27.0-33.0) pg MCHC 32.3 (31.0-35.0) g/dl RDW 13.7 (11.0-16.0) % Plt Count 255 (160-400) X10*3/uL MPV 10.4 (9.4-12.3) fL Absolute Nucleated RBC 0.000 (0.0-0.012) X10*3/uL Nucleated RBC % (auto) 0.0 (0.0-0.2) /100WBC Independent Interpretation I performed an independent interpretation of an: Ultrasound (cysts, thickened endometrium) Radiology Impression Discussion of test interpretation with radiology: I have reviewed the radiologist's reading. External Record Review External record reviewed: Office record Discharge Plan Discharge Clinical Impression: Dysfunctional uterine bleeding Patient Disposition: Home, Self-Care Instructions: Dysfunctional Uterine Bleeding (ED) Additional Instructions: please go to Dr. Hutchison office from the ED they are expecting you at this time. 5th floor of the hospital. Prescriptions: No Action albuterol sulfate 90 mcg/actuation HFA aerosol inhaler 1 inh inhalation QID PRN (Reason: shortness of breath or wheezing) Qty: 8.5 0RF (DME) AeroEclipse II Nebulizer Misc See Rx Instructions .ROUTE .MEDSUPPLY Qty: 1 0RF Rx Instructions: As directed fluticasone propionate [Flonase Allergy Relief] 50 mcg/actuation spray,suspension 1 spray intranasal BID Qty: 16 0RF Rx Instructions: administer into each nostril ibuprofen 600 mg tablet 600 mg PO Q8H PRN (Reason: fever or pain) Qty: 14 0RF
[2023-10-15 09:02] VITALS: BP 129/72; PULSE 96; RESP 18; TEMP 36.8; O2SAT 98
[2023-10-15] MEDS: Ibuprofen 600 MG TABLET PO (09:12)
[2023-10-15 09:13] LABS: Hematocrit 37.5 % (37.0-47.0); Hemoglobin 12.1 g/dl (12.0-16.0); Mean Corpuscular HGB Conc 32.3 g/dl (31.0-35.0); Mean Corpuscular Hemoglobin 25.2 pg (27.0-33.0); Mean Platelet Volume 10.4 fL (9.4-12.3); Platelet Count 255 X10*3/uL (160-400); Red Blood Count 4.81 X10*6/uL (4.20-5.50); Red Cell Distribution Width 13.7 % (11.0-16.0); White Blood Count 7.8 X10*3/uL (4.8-10.8)
[2023-10-15 11:01] VITALS: BP 127/67; PULSE 93; RESP 16; O2SAT 98
[2023-10-15 14:25] LABS: CT PCR NOT DETECTED (Not Detect.); NG PCR NOT DETECTED (Not Detect.)
[2023-10-16 15:06] LABS: BV Int Neg Control Negative (Negative); BV Int Pos Control Positive (Positive)
== END 2023-10-15 11:27 | disposition home or self-care (01) ==
PROVIDERS: Emergency Provider Emergency Medicine
DX: N93.8 Other specified abnormal uterine and vaginal bleeding (principal); R53.1 Weakness; R10.2 Pelvic and perineal pain; Z79.899 Other long term (current) drug therapy
CPT/HCPCS: 0353U; 36415; 76830; 76856; 85027; 87480; 87510; 87660; 99202; 99284

== ENCOUNTER 2023-10-15 11:46 | Outpatient (AMB) | payer MEDICAID, SELFPAY ==
--- NOTE | 2023-10-15 12:10 | A.OFFVIS_ITS ---
Intake Vital Signs 10/15/23 12:13 Height 5 ft 3 in Weight 220 lb 7.396 oz BMI 39.0 BP 120/74 Intake Visit Reasons: ER follow up Adult Literacy Instructor Required: No Information Interpreted: non-clinical & clinical Traffic Workforce Representative: Traffic Workforce Representative Present Accompanied by: Self / Same As Patient Allergies No Known Allergies Allergy (Verified 10/15/23 12:13) HPI HPI Comments History of Present Illness Details Presenting for ER follow-up. The patient went to the emergency room today with heavy vaginal bleeding. The patient has been having irregular menstrual cycles associated with hair growth over the chin over the last few years. The following workup was done in the emergency room: H&H 12.1/37.5, hCG less than 2, GC/CT , Trichomonas and BV panel pending No previous Pap smear Pelvic ultrasound showed the following: Uterus: The uterus is anteverted anteflexed and measures 9.1 x 4.2 x 4.6 cm for a volume of 80 mL. The double wall endometrial thickness is increased at 19 mm and demonstrates hypervascularity. A polypoid mass is not seen. The uterus is smooth in contour and has normal myometrial echogenicity. No visible fibroid. Nabothian cysts are present. Adnexa: Both ovaries are visualized. There is normal color flow to the adnexa. There is no ovarian torsion. There is no pelvic ascites or fluid collection. Right ovary measures 5.3 x 2.1 x 3.0 cm for a volume of 17.6 mL and contains multiple small peripheral cysts. Left ovary measures 5.0 x 3.1 x 2.7 cm for a volume of 21.7 mL and contains multiple small peripheral cysts. [facility] Medical History Obesity PCOS (polycystic ovarian syndrome) Asthma Family History Maternal Grandfather Stroke Paternal Grandmother Cancer Social History Alcohol intake: never Patient Tobacco Use Status: Never used Tobacco Sexual orientation: Straight/Heterosexual Gender identity: Female Female Reproductive History Menstrual Age of Menarche: 12 Review of Systems Const All systems reviewed & are unremarkable except as noted in HPI and below Physical Exam Vital Signs: Last Vital Signs BP 120/74 10/15/23 12:13 BMI result Body Mass Index 39.0 General: Yes no CVA tenderness External Female Exam: normal external appearance and normal appearance of the urethra Speculum Exam - Vagina: normal appearance of the vagina, normal palpation, no lesions, no masses and other (No evidence of active vaginal bleeding) Speculum Exam - Cervix: normal appearance of the cervix, normal palpation, no lesions, no masses and nontender Bimanual exam- vagina & uterus: normal bimanual exam, normal palpation, uterine size normal, normal palpation, uterine shape normal, No Cervical tenderness present and non-tender Bimanual Exam- Adnexa, other: normal adnexae Back/Spine/Pelvis Back: no CVA tenderness Assessment & Plan Assessment & Plan (1) Abnormal uterine bleeding: Comment: With hirsutism PCOS ovaries by ultrasound Code(s): N93.9 - Abnormal uterine and vaginal bleeding, unspecified Plan: Will order androgen levels including 17 hydroxyprogesterone and total/free testosterone, TSH, prolactin. Since the patient is young although was possible PCOS has a low risk for endometrial pathology, therefore, will defer endometrial biopsy unless the patient does not respond to control pills after few months. Pap smear taken in the office, GC and chlamydia taken CBC, HCG, and pelvic ultrasound done in the emergency room. Discussed with the patient the different causes of abnormal bleeding including thyroid disorders, uterine and ovarian pathology, endometrial hyperplasia, carcinoma and other potential causes. Discussed with the patient the work up including CBC (to r/o anemia), TSH, pelvic Ultrasound, endometrial biopsy to r/o endometrial pathology will be deferred since the patient is young unless best with cycles will not regulated with control pills within few months. Discussed with the patient the results of the work up done and options of treatment including control pills , Mirena IUD, cyclic Provera. All pros, cons, risks and benefits if each option was discussed with the patient and the patient decided to go ahead with [facility] so a more detailed discussion re: control pills including mechanism of action, benefits (regular menses, less dysmenorrhea, less risk of ovarian cancer, ...), risks ( DVT, PE, Strokes, PA, ? increased breast ca, others). Instructions were given to call or go to emergency room in case of persistence of heavy vaginal bleeding, to use a back- up method for contraception x 1st 2 weeks, and to schedule a 3 months appointment for blood pressure check Orders: Orders 17 Hydroxyprogesterone Today N93.9 - Abnormal uterine and vaginal bleeding, unspecified Testosterone, Free/Total Today N93.9 - Abnormal uterine and vaginal bleeding, unspecified Prolactin Today N93.9 - Abnormal uterine and vaginal bleeding, unspecified TSH reflex Free T4 Today N93.9 - Abnormal uterine and vaginal bleeding, unspecified Medications: New desogestrel-ethinyl estradiol 0.15-0.03 mg (Apri) 1 tab PO DAILY 28 tabs 2RF 28 days Coding Level of Care Code New Pt Level 3 (07157) Diagnoses Abnormal uterine bleeding N93.9
[2023-10-15 12:13] VITALS: BP 120/74; BMI 39.0
== END 2023-10-15 12:48 | disposition home or self-care (01) ==
LOC: HO.HWS 11:46
PROVIDERS: Referring Provider Internal Medicine; Visit Provider Obstetrics & Gynecology
DX: N93.9 Abnormal uterine and vaginal bleeding, unspecified (principal)
CPT/HCPCS: 99203

== ENCOUNTER 2023-10-15 12:43 | Outpatient (REF) | payer MEDICAID, SELFPAY | END 2023-10-15 12:44 | disposition home or self-care (01) | LOC: HO.LNP 12:43 | PROVIDERS: Visit Provider Obstetrics & Gynecology | DX: Z12.4 Encounter for screening for malignant neoplasm of cervix (principal); N93.9 Abnormal uterine and vaginal bleeding, unspecified | CPT/HCPCS: 36415; 83498; 84146; 84402; 84403; 88142 ==

== ENCOUNTER 2023-10-15 12:51 | Outpatient (REF) | payer MEDICAID, SELFPAY ==
[2023-10-16 04:33] LABS: Prolactin 6.8 ng/mL
[2023-10-20 11:54] LABS: Testosterone, Free 9.4 pg/mL (0.1-6.4); Testosterone, Total 83 ng/dL (2-45)
== END 2023-10-15 12:52 | disposition home or self-care (01) ==
LOC: HO.LAB 12:51
PROVIDERS: Visit Provider Obstetrics & Gynecology
DX: N93.9 Abnormal uterine and vaginal bleeding, unspecified (principal)
CPT/HCPCS: 36415; 83498; 84146; 84402; 84403

== ENCOUNTER 2023-10-17 13:10 | Outpatient (REF) | payer MEDICAID, SELFPAY ==
[2023-10-17 13:39] LABS: Hemoglobin 10.5 g/dl (12.0-16.0); Mean Corpuscular HGB Conc 31.8 g/dl (31.0-35.0); Mean Corpuscular Hemoglobin 24.9 pg (27.0-33.0); Mean Corpuscular Volume 78.2 fL (80.0-98.0); Mean Platelet Volume 10.5 fL (9.4-12.3); Platelet Count 277 X10*3/uL (160-400); Red Blood Count 4.22 X10*6/uL (4.20-5.50); Red Cell Distribution Width 13.8 % (11.0-16.0); White Blood Count 8.4 X10*3/uL (4.8-10.8)
[2023-10-17 14:43] LABS: TSH reflex Free T4 1.72 uIU/mL (0.32-4.0)
== END 2023-10-17 13:11 | disposition home or self-care (01) ==
LOC: HO.LAB 13:10
PROVIDERS: Visit Provider Obstetrics & Gynecology
DX: N93.9 Abnormal uterine and vaginal bleeding, unspecified (principal); Z32.02 Encounter for pregnancy test, result negative
CPT/HCPCS: 36415; 81025; 84443; 85027; 99212

== ENCOUNTER 2023-10-17 13:28 | Outpatient (AMB) | payer MEDICAID, SELFPAY ==
--- NOTE | 2023-10-17 13:29 | MHC.OFFVIS ---
Intake Vital Signs 10/17/23 13:44 Height 5 ft 3 in Weight 220 lb BMI 39.0 BP 112/60 Intake Visit Reasons: follow up blood work Interior Design Coordinator Required: No Allergies No Known Allergies Allergy (Verified 10/17/23 13:29) Post menopausal: No HPI HPI Comments History of Present Illness Details Presenting complaining of persistence of her heavy vaginal bleeding associated with passage of blood clots over the last 3 days since she started control pill, the patient states that she is changing 5-6 pads per day. No other symptom. H&H on 10/15 was 12.1/37.8. CBC done today was 10.33 PFSH Medical History Obesity PCOS (polycystic ovarian syndrome) Asthma Family History Maternal Grandfather Stroke Paternal Grandmother Cancer Social History Alcohol intake: never Patient Tobacco Use Status: Never used Tobacco Sexual orientation: Straight/Heterosexual Gender identity: Female Female Reproductive History Menstrual Age of Menarche: 12 Physical Exam Other: Declined by the patient eating that she is on her menstrual cycle. And she Does not feel comfortable for pelvic exam Results AMB Test Urine AMB Test Urine Negative Last Edit by CORY Glover on 10/17/23 13:45 Assessment & Plan Assessment & Plan (1) Abnormal uterine bleeding: Comment: With hirsutism PCOS ovaries by ultrasound Code(s): N93.9 - Abnormal uterine and vaginal bleeding, unspecified Plan: Urine test done in the office was negative Instructions given the patient to take 1 tablets of the control pills b.i.d. for 3 days then go back to once a day, to call or go to the emergency if vaginal bleeding does not improve within 24-48 hours, feeling of weakness of short of breath. Iron sulfate 325 mg p.o. b.i.d. all questions answered, the patient verbalized understanding. Orders: Orders AMB HCG Urine Test Today Z32.02 - Encounter for test, result negative Coding Level of Care Code Est Pt Level 3 (43296) Diagnoses Abnormal uterine bleeding N93.9
[2023-10-17 13:44] VITALS: BP 112/60; BMI 39.0
== END 2023-10-17 13:52 | disposition home or self-care (01) ==
LOC: HO.HWS 13:28
PROVIDERS: Visit Provider Obstetrics & Gynecology
DX: N93.9 Abnormal uterine and vaginal bleeding, unspecified (principal); Z32.02 Encounter for pregnancy test, result negative
CPT/HCPCS: 99213

== ENCOUNTER 2023-10-29 10:48 | Outpatient (REF) | payer MEDICAID, SELFPAY ==
[2023-10-29 12:07] LABS: Mean Corpuscular HGB Conc 31.3 g/dl (31.0-35.0); Mean Corpuscular Hemoglobin 24.9 pg (27.0-33.0); Mean Corpuscular Volume 79.6 fL (80.0-98.0); Mean Platelet Volume 10.6 fL (9.4-12.3); Platelet Count 310 X10*3/uL (160-400); Red Blood Count 4.02 X10*6/uL (4.20-5.50); Red Cell Distribution Width 13.9 % (11.0-16.0); White Blood Count 7.2 X10*3/uL (4.8-10.8)
== END 2023-10-29 10:49 | disposition home or self-care (01) ==
LOC: HO.LAB 10:48
PROVIDERS: Visit Provider Obstetrics & Gynecology
DX: N93.9 Abnormal uterine and vaginal bleeding, unspecified (principal); R87.615 Unsatisfactory cytologic smear of cervix; Z32.02 Encounter for pregnancy test, result negative
CPT/HCPCS: 36415; 81025; 85027; 99212

== ENCOUNTER 2023-10-29 10:48 | Outpatient (AMB) | payer MEDICAID, SELFPAY ==
--- NOTE | 2023-10-29 10:54 | A.OFFVIS_ITS ---
Intake Vital Signs 10/29/23 10:58 Height 5 ft 3 in Weight 218 lb 4.122 oz BMI 38.7 BP 120/72 Intake Visit Reasons: vaginal bleeding Machine Boss Required: No Information Interpreted: non-clinical & clinical Supervisor Ship Maintenance Services: Supervisor Ship Maintenance Services Present (Katalina RAY) Accompanied by: Self / Same As Patient Allergies No Known Allergies Allergy (Verified 10/29/23 11:02) Is last menstrual period known: Yes Last menstrual period: 10/23/23 HPI HPI Comments History of Present Illness Details Presenting for follow-up AUB. The following workup has been done : , TSH, prolactin within normal GC/CT, BV panel negative Testosterone total 83 ng/dL elevated, free testosterone 9.4 pg/mL elevated Pap smear was unsatisfactory for scant cellularity Pelvic ultrasound showed the following: Uterus: The uterus is anteverted anteflexed and measures 9.1 x 4.2 x 4.6 cm for a volume of 80 mL. The double wall endometrial thickness is increased at 19 mm and demonstrates hypervascularity. A polypoid mass is not seen. The uterus is smooth in contour and has normal myometrial echogenicity. No visible fibroid. Nabothian cysts are present. Adnexa: Both ovaries are visualized. There is normal color flow to the adnexa. There is no ovarian torsion. There is no pelvic ascites or fluid collection. Right ovary measures 5.3 x 2.1 x 3.0 cm for a volume of 17.6 mL and contains multiple small peripheral cysts. Left ovary measures 5.0 x 3.1 x 2.7 cm for a volume of 21.7 mL and contains multiple small peripheral cysts. The patient started on control pill, her bleeding has improved but she still having persistent vaginal bleeding. [facility] Medical History Obesity PCOS (polycystic ovarian syndrome) Asthma Family History Maternal Grandfather Stroke Paternal Grandmother Cancer Social History Alcohol intake: never Patient Tobacco Use Status: Never used Tobacco Sexual orientation: Straight/Heterosexual Gender identity: Female Female Reproductive History Menstrual Age of Menarche: 12 Date of last menstrual period: 10/23/23 Physical Exam Vital Signs: Last Vital Signs BP 120/72 10/29/23 10:58 BMI result Body Mass Index 38.7 Results AMB Test Urine AMB Test Urine Negative Last Edit by Katalina Espinoza CMA on 11:04 Assessment & Plan Assessment & Plan (1) Abnormal uterine bleeding: Comment: With hirsutism PCOS ovaries by ultrasound Code(s): N93.9 - Abnormal uterine and vaginal bleeding, unspecified Plan: UPT done in the office was negative. The CBC stat ordered. Instructions given the patient to continue on control pills, call or go to emergency room in case of heavy vaginal bleeding, iron sulfate 325 mg p.o. q.d., if bleeding persists within 2-3 months will proceed with EMB to rule out endometrial pathology (2) Unsatisfactory cervical Papanicolaou smear: Code(s): R87.615 - Unsatisfactory cytologic smear of cervix Plan: Recommended repeat Pap smear, the patient not want have a pelvic exam today because of bleeding would like to schedule an appointment for Pap smear. Orders: Orders Complete Blood Count no Diff Today N93.9 - Abnormal uterine and vaginal bleeding, unspecified AMB HCG Urine Test Today Z32.02 - Encounter for test, result negative Coding Level of Care Code Est Pt Level 3 (07396) Diagnoses Abnormal uterine bleeding N93.9 Unsatisfactory cervical Papanicolaou smear R87.615
[2023-10-29 10:58] VITALS: BP 120/72; BMI 38.7
== END 2023-10-29 11:15 | disposition home or self-care (01) ==
PROVIDERS: Visit Provider Obstetrics & Gynecology
DX: N93.9 Abnormal uterine and vaginal bleeding, unspecified (principal); R87.615 Unsatisfactory cytologic smear of cervix; Z32.02 Encounter for pregnancy test, result negative
CPT/HCPCS: 99213

== ENCOUNTER 2023-11-05 08:21 | Emergency (ER) | payer MEDICAID, SELFPAY ==
[2023-11-05 08:31] VITALS: BP 149/71; PULSE 84; RESP 19; TEMP 36.6; O2SAT 98; BMI 40.3
[2023-11-05 09:50] LABS: MANUAL DIFF FLAG NO
[2023-11-05 09:53] LABS: Basophils Percent Auto 0.3 % (0-2); Eosinophils Absolute Auto 0.1 X10*3/uL (0.0-0.4); Eosinophils Percent Auto 1.2 % (0-4); Hematocrit 29.5 % (37.0-47.0); Hemoglobin 9.2 g/dl (12.0-16.0); Imm Gran Abs Auto 0.02 X10*3/uL (0.00-0.03); Imm Gran Pct Auto 0.3 % (0.0-0.4); Lymphocytes Absolute Auto 1.9 X10*3/uL (1.2-4.9); Lymphocytes Percent Auto 31.8 % (20-40); Mean Corpuscular HGB Conc 31.2 g/dl (31.0-35.0); Mean Corpuscular Hemoglobin 24.7 pg (27.0-33.0); Mean Corpuscular Volume 79.3 fL (80.0-98.0); Mean Platelet Volume 10.8 fL (9.4-12.3); Monocytes Absolute Auto 0.3 X10*3/uL (0.1-1.2); Monocytes Percent Auto 4.6 % (2-11); Neutrophils Absolute Auto 3.7 x10*3/uL (2.0-8.3); Neutrophils Percent Auto 61.8 % (45-73); Platelet Count 287 X10*3/uL (160-400); Red Blood Count 3.72 X10*6/uL (4.20-5.50); White Blood Count 5.9 X10*3/uL (4.8-10.8)
[2023-11-05 10:05] LABS: Appearance Urine Cloudy; Color Urine Yellow; Glucose Urine UA Negative (Negative); Leukocyte Esterase Urine Trace (Negative); Nitrite Urine Negative (Negative); Specific Gravity - Urine >= 1.030 (1.005-1.025); UMIC TRIGGER UACC YES; Urine Blood Large (3+) (Negative); Urine Ketones Trace mg/dL (Negative); Urine Protein 30 (1+) mg/dL (Neg-Trace)
[2023-11-05 10:10] LABS: Bacteria Urine None Seen (None Seen); Hyaline Casts Urine 0-2 /LPF (0-2); RBC Urine >20 /HPF (0-2); WBC Urine 0-5 /HPF (0-5)
[2023-11-05 10:19] LABS: Alanine Aminotransferase 29 U/L (0-31); Albumin Level 4.1 g/dL (3.5-5.0); Alkaline Phosphatase 62 U/L (39-117); Anion Gap 12 (12-20); Aspartate Amino Transferase 24 U/L (5-31); Bilirubin Total 0.1 mg/dL (0.0-1.0); Blood Urea Nitrogen 16 mg/dL (9-16); Calcium 9.9 mg/dL (8.4-10.2); Carbon Dioxide 21 mmol/L (22-29); Chloride 111 mmol/L (96-108); Creatinine Clr Calc Pharmacy 148.8; Estimated Glomerular Filt Rate > 60; Glucose Random 98 mg/dL (60-115); Lipase 25 U/L (8-78); Magnesium 2.1 mg/dL (1.6-2.6); Potassium 4.3 mmol/L (3.3-5.1); Sodium 140 mmol/L (135-145)
[2023-11-05 10:23] LABS: HCG Quantitative < 2 mIU/mL
== END 2023-11-05 16:04 | disposition left against medical advice (07) ==
PROVIDERS: Physician Assistant; Emergency Provider Emergency Medicine
DX: R10.32 Left lower quadrant pain (principal); Z79.899 Other long term (current) drug therapy
CPT/HCPCS: 36415; 80053; 81001; 81003; 83690; 83735; 84702; 85025; 99282; 99283

== ENCOUNTER 2024-09-03 11:20 | Emergency (ER) | payer SELFPAY ==
--- NOTE | ~2024-09-03 | XR_ITS ---
EXAMINATION: XR CHEST CLINICAL INFORMATION: Fever and cough. COMPARISON: Chest radiograph dated January 29, 2023. TECHNIQUE: 2 views of the chest were obtained. FINDINGS: The heart is normal in size. The lungs are clear. No pleural effusion. No pneumothorax. No acute osseous abnormality. XR/XR chest 2V IMPRESSION: No acute cardiopulmonary disease. Electronically signed by: William Barber DO 09/03/2024 02:12 PM EDT
--- NOTE | 2024-09-03 11:26 | ED_ITS ---
HPI - General Adult General Chief complaint: Upper Respiratory Symptoms Stated complaint: fever, body aches, congestion Time Seen by Provider: 09/03/24 12:22 History of Present Illness HPI narrative: Patient complains of runny nose fever and body aches for 2 days, there is a mild cough infrequent no sputum no chest pain no shortness of breath, she is not congested but does have a runny nose, there is no sore throat no difficulty swallowing no shortness of breath no trouble breathing no chest pain or pain with a deep breath no dizziness or weakness no fainting or feeling faint no nausea vomiting or diarrhea no dysuria no rash Related Data Previous Rx's ?Medication ?Instructions ?Recorded nebulizers (AeroEclipse II #1 ea 10/20/21 Nebulizer) fluticasone propionate 50 1 spray intranasal BID #16 grams 07/11/22 mcg/actuation nasal spray,suspension (Flonase Allergy Relief) albuterol sulfate 90 mcg/actuation 1 inh inhalation QID PRN shortness 01/29/23 aerosol inhaler of breath or wheezing #8.5 grams ibuprofen 600 mg tablet 600 mg PO Q8H PRN fever or pain 09/11/23 #14 tabs desogestrel 0.15 mg-ethinyl 1 tab PO DAILY 28 days #28 tabs 10/15/23 estradiol 0.03 mg tablet (Apri) acetaminophen 500 mg tablet 1,000 mg (2 x 500 mg) PO QID PRN 09/03/24 pain #30 tabs ibuprofen 600 mg tablet 600 mg PO Q6H PRN fever or pain 09/03/24 #20 tabs Allergies Allergy/AdvReac Type Severity Reaction Status Date / Time No Known Allergies Allergy Verified 09/03/24 11:29 [facility] Past Medical History Source: nursing notes reviewed Medical History Obesity PCOS (polycystic ovarian syndrome) Asthma Family History Family History Maternal Grandfather Stroke Paternal Grandmother Cancer Social History Social History Alcohol intake: never Patient Tobacco Use Status: Never used Tobacco Advance Directives: No Advance Directives Information Provided: Yes Do you have a plan to hurt others: No Plan Sexual orientation: Straight/Heterosexual Gender identity: Female Physical Exam ED Vital Signs: Vital Signs - 24 hr 09/03/24 11:28 09/03/24 14:43 09/03/24 15:32 Temperature 101.2 F H 99.3 F 99.3 F Pulse Rate 132 H 119 H 99 Respiratory Rate 18 18 18 Blood Pressure 129/73 119/69 113/63 Pulse Oximetry 97 97 97 Oxygen Delivery Method Room Air Room Air Room Air BMI result Body Mass Index 39.0 General appearance no acute distress Eyes no redness or discharge The ears normal The nose no sinus tenderness no congestion The pharynx is clear without redness swelling or exudate Neck is supple Respiratory no distress Lungs are clear to auscultation bilateral Heart no murmur Abdomen soft nontender Skin no rash Extremities full range motion x4 Neuro no focal deficits Course Course Course Narrative: This is a rapid medical exam performed by Nico Morgan NP: Additional HPI, ROS, PE not included below will be deferred to primary provider. Patient is a 24-year-old female presenting with complaint of headaches, fever, body aches and congestion. Symptoms began Fri night/ am. Temp 101.2 in triage, tachycardic to 130. Started amox for a dental infection on Fri. Plan: viral and strep swabs, CXR, medicated in triage Swabs for COVID flu and strep were all negative, chest x-ray was negative, patient remains comfortable throughout visit After administration of Motrin fever was reduced to 99.3, and well-appearing patient with a fever and viral upper respiratory infection is discharged Medications Administered Discontinued Medications Generic Name Dose Route Start Last Admin Trade Name Joslyn PRN Reason Stop Dose Admin Acetaminophen 975 mg 09/03/24 14:44 09/03/24 15:19 Acetaminophen 325 Mg Tablet PO 09/03/24 14:45 975 mg ONCE ONE Administration Ibuprofen 600 mg 09/03/24 11:29 09/03/24 13:05 Ibuprofen 600 Mg Tablet PO 09/03/24 11:30 600 mg ONCE ONE Administration Medical Decision Making Lab Data [facility] Lab Attestation statement: I reviewed the patient's lab results. Labs: Lab Results 09/03/24 Range/Units 11:33 Influenza Type A (PCR) NEGATIVE (Negative) Influenza Type B (PCR) NEGATIVE (Negative) RSV RNA Qual (PCR) NEGATIVE (Negative) SARS-CoV-2 RNA (RT-PCR) NEGATIVE (Negative) S. pyogenes GrpA HARINDER Negative (Negative) Discharge Plan Discharge Clinical Impression: Fever, Upper respiratory infection, viral Patient Disposition: Home, Self-Care Additional Instructions: Testing for COVID flu and strep throat were all negative Chest x-ray was normal no pneumonia Her physical exam did not show any alarming findings lungs were clear throat look normal Fever is very common with viral upper respiratory illness and usually resolves on its own in a reasonable amount of time Return any time for difficulty breathing vomiting any worse condition or any concerns Follow with primary doctor next week if not improved Prescriptions: New acetaminophen 500 mg tablet 1,000 mg PO QID PRN (Reason: pain) Qty: 30 0RF ibuprofen 600 mg tablet 600 mg PO Q6H PRN (Reason: fever or pain) Qty: 20 0RF No Action albuterol sulfate 90 mcg/actuation HFA aerosol inhaler 1 inh inhalation QID PRN (Reason: shortness of breath or wheezing) Qty: 8.5 0RF (DME) AeroEclipse II Nebulizer Misc See Rx Instructions .ROUTE .MEDSUPPLY Qty: 1 0RF Rx Instructions: As directed fluticasone propionate [Flonase Allergy Relief] 50 mcg/actuation spray,suspension 1 spray intranasal BID Qty: 16 0RF Rx Instructions: administer into each nostril ibuprofen 600 mg tablet 600 mg PO Q8H PRN (Reason: fever or pain) Qty: 14 0RF desogestrel-ethinyl estradiol [Apri] 0.15-0.03 mg tablet 1 tab PO DAILY 28 Days Qty: 28 2RF Stand Alone Forms: Work/School Release Interventions: ED Discharge Assessment Last Done: 09/03/24 15:32 Discharge Date/Time: 09/03/24 15:32 Print Language: Telugu
[2024-09-03 11:28] VITALS: BP 129/73; PULSE 132; RESP 18; TEMP 38.4; O2SAT 97; BMI 39.0
--- NOTE | 2024-09-03 11:30 | ECG_ITS ---
Test Reason : DIZZINESS Blood Pressure : / mmHG Vent. Rate : 127 BPM Atrial Rate : 127 BPM P-R Int : 132 ms QRS Dur : 082 ms QT Int : 290 ms P-R-T Axes : 036 069 008 degrees QTc Int : 421 ms Sinus tachycardia Otherwise normal ECG When compared with ECG of 29-JAN-2023 11:36, No significant change was found Referred By: Beatriz Morgan Electronically Signed By:ANYA CHILDERS
[2024-09-03 12:01] LABS: IDNOW Serial# 08D9AD1C; Strep A Nucleic Acid Negative (Negative)
[2024-09-03 12:29] LABS: Influenza A PCR NEGATIVE (Negative); Influenza B PCR NEGATIVE (Negative); Resp Syncy Virus RNA Qual PCR NEGATIVE (Negative); SARS COV2 PCR INHOUSE NEGATIVE (Negative)
[2024-09-03] MEDS: Ibuprofen 600 MG TABLET PO (13:05)
[2024-09-03 14:43] VITALS: BP 119/69; PULSE 119; RESP 18; TEMP 37.4; O2SAT 97
[2024-09-03] MEDS: Acetaminophen 325 MG TABLET 975 MG PO (15:19)
[2024-09-03 15:32] VITALS: BP 113/63; PULSE 99; RESP 18; TEMP 37.4; O2SAT 97
== END 2024-09-03 15:32 | disposition home or self-care (01) ==
PROVIDERS: Registered Nurse Emergency; Emergency Provider Internal Medicine
DX: J06.9 Acute upper respiratory infection, unspecified (principal); R50.9 Fever, unspecified; R52 Pain, unspecified; Z03.818 Encounter for observation for suspected exposure to other biological agents ruled out
CPT/HCPCS: 0241U; 71046; 87651; 93005; 99283; 99284

== ENCOUNTER → 2024-09-03 11:30 | Outpatient (BNV) | payer SELFPAY | PROVIDERS: Emergency Provider Internal Medicine; Visit Provider Internal Medicine | DX: R00.0 Tachycardia, unspecified (principal) | CPT/HCPCS: 93010 ==

== ENCOUNTER 2025-04-04 06:54 | Emergency (ER) | payer OTHER, SELFPAY ==
[2025-04-04 07:08] VITALS: BP 136/80; PULSE 119; RESP 18; TEMP 36.8; O2SAT 97; BMI 38.4
--- NOTE | 2025-04-04 07:16 | PC.NURSE ---
Dr Moraes notified of poss + sepsis criteria at 0716 via [employer].
[2025-04-04 07:39] LABS: MANUAL DIFF FLAG NO
[2025-04-04 07:40] LABS: Basophils Percent Auto 0.3 % (0-2); Eosinophils Absolute Auto 0.1 X10*3/uL (0.0-0.4); Eosinophils Percent Auto 0.9 % (0-4); Hematocrit 38.9 % (37.0-47.0); Hemoglobin 12.7 g/dl (12.0-16.0); Imm Gran Abs Auto 0.03 X10*3/uL (0.00-0.03); Imm Gran Pct Auto 0.4 % (0.0-0.4); Lymphocytes Percent Auto 13.2 % (20-40); Mean Corpuscular HGB Conc 32.6 g/dl (31.0-35.0); Mean Corpuscular Hemoglobin 24.6 pg (27.0-33.0); Mean Corpuscular Volume 75.2 fL (80.0-98.0); Mean Platelet Volume 10.5 fL (9.4-12.3); Monocytes Absolute Auto 0.3 X10*3/uL (0.1-1.2); Monocytes Percent Auto 4.1 % (2-11); Neutrophils Absolute Auto 6.3 x10*3/uL (2.0-8.3); Neutrophils Percent Auto 81.1 % (45-73); Platelet Count 249 X10*3/uL (160-400); Red Blood Count 5.17 X10*6/uL (4.20-5.50); White Blood Count 7.8 X10*3/uL (4.8-10.8)
[2025-04-04 07:58] LABS: Alanine Aminotransferase 23 U/L (0-31); Albumin Level 4.4 g/dL (3.5-5.0); Alkaline Phosphatase 80 U/L (39-117); Anion Gap 14 (12-20); Aspartate Amino Transferase 31 U/L (5-31); Bilirubin Total 0.4 mg/dL (0.0-1.0); Blood Urea Nitrogen 11 mg/dL (9-16); Calcium 9.7 mg/dL (8.4-10.2); Carbon Dioxide 21 mmol/L (22-29); Chloride 105 mmol/L (96-108); Creatinine Clr Calc Pharmacy 127.5; Estimated Glomerular Filt Rate > 60; Glucose Random 103 mg/dL (60-115); Lactic Acid 0.9 mmol/L (0.5-2.0); Potassium 3.9 mmol/L (3.3-5.1); Sodium 136 mmol/L (135-145); Total Protein 8.2 g/dL (6.5-8.0)
[2025-04-04 08:07] LABS: IDNOW Serial# 58CA691E; Strep A Nucleic Acid Negative (Negative)
--- NOTE | 2025-04-04 08:23 | ED_ITS ---
HPI - General Adult General Chief complaint: Dental/Oral Stated complaint: ear pain Time Seen by Provider: 04/04/25 08:04 Source: patient, RN notes reviewed and old records reviewed Mode of arrival: ambulatory History of Present Illness ED Provider: Jessie Jimenez PA-C [facility] narrative: 24-year-old female with a past medical history of obesity, hirsutism, PCOS, asthma, right upper molar dental extraction on (03/31/25), presenting to the ED complaining of subjective fever, sore throat, chills, right-sided facial pain, congestion, cough x 3 days. Admits was started on p.o. amoxicillin prior to dental extraction however she did develop finish prescription. Denies difficulty or inability to swallow, drainage from mouth, ear pain, hearing loss, SOB, sick contacts/travel. Denies taking any antipyretics today Related Data Previous Rx's ?Medication ?Instructions ?Recorded nebulizers (AeroEclipse II #1 ea 10/20/21 Nebulizer) fluticasone propionate 50 1 spray intranasal BID #16 grams 07/11/22 mcg/actuation nasal spray,suspension (Flonase Allergy Relief) albuterol sulfate 90 mcg/actuation 1 inh inhalation QID PRN shortness 01/29/23 aerosol inhaler of breath or wheezing #8.5 grams ibuprofen 600 mg tablet 600 mg PO Q8H PRN fever or pain 09/11/23 #14 tabs desogestrel 0.15 mg-ethinyl 1 tab PO DAILY 28 days #28 tabs 10/15/23 estradiol 0.03 mg tablet (Apri) acetaminophen 500 mg tablet 1,000 mg (2 x 500 mg) PO QID PRN 09/03/24 pain #30 tabs ibuprofen 600 mg tablet 600 mg PO Q6H PRN fever or pain 09/03/24 #20 tabs amoxicillin 875 mg-potassium 1 tab PO BID 7 days #14 tabs 04/04/25 clavulanate 125 mg tablet Allergies Allergy/AdvReac Type Severity Reaction Status Date / Time No Known Allergies Allergy Verified 04/04/25 07:09 Review of Systems 2 Review of Systems: Yes all other systems are reviewed and are negative Constitutional: Constitutional: Reports as per [facility] Past Medical History Attestation statement: The following information was validated with the patient. Source: old records reviewed Medical History Obesity PCOS (polycystic ovarian syndrome) Asthma Family History Family History Maternal Grandfather Stroke Paternal Grandmother Cancer Social History Social History Alcohol intake: never Patient Tobacco Use Status: Never used Tobacco Advance Directives: No Advance Directives Information Provided: Yes Sexual orientation: Straight/Heterosexual Gender identity: Female Physical Exam ED Vital Signs: Vital Signs - 24 hr 04/04/25 07:08 04/04/25 10:18 04/04/25 11:01 Temperature 98.3 F 99.0 F 99.0 F Pulse Rate 119 H 94 94 Respiratory Rate 18 14 14 Blood Pressure 136/80 107/55 L 107/55 L Pulse Oximetry 97 96 96 Oxygen Delivery Method Room Air Room Air Room Air BMI result Body Mass Index 38.4 Const General: cooperative, healthy appearing and no acute distress Orientation/consciousness: patient oriented x3 Limitations: no limitations HENMT Other: Right upper molar dental extraction. Mild gingival tenderness. No gingival erythema/swelling or fluctuance/induration. Head: Yes normal to inspection and Yes atraumatic Ears: hearing grossly normal bilaterally, external ears normal, TM's normal bilaterally and mastoids normal General nose exam: Normal external nose present Face and sinus: Yes normal facial exam Mouth: Normal oral and palatal mucosa present and no drooling Throat: Yes posterior oropharynx normal, Yes tonsils normal, Yes uvula midline, No peritonsillar mass, No uvula laterally displaced and No uvular edema Eyes General: appearance normal, both eyes and all related structures EOM: EOMs intact bilaterally Neck Neck: Yes normal visual inspection and Yes no meningeal signs Resp Effort & Inspection: normal respiratory effort, no respiratory distress and no stridor Auscultation: clear to auscultation bilaterally Cardio Rate: regular rate Heart sounds: S1 normal heart sound present and S2 normal heart sound present Skin Rashes: no rashes Wounds: no wounds Neuro General: patient oriented x3, tone normal and no meningeal signs Cranial nerves: Yes CN's II-XII intact bilaterally Gait exam (Neuro): Normal gait present Extrem General: Yes normal to inspection Course Course Course Narrative: -1015--no leukocytosis. H/H stable. Labs otherwise reassuring -COVID/flu/RSV and rapid strep negative > vital signs improved after IV fluids and Toradol Results discussed with patient including worrisome signs and symptoms and strict return precautions, and when to return to the emergency department. They verbalized understanding and feel safe for discharge at this time. Medications Administered Discontinued Medications Generic Name Dose Route Start Last Admin Trade Name Freq PRN Reason Stop Dose Admin Sodium Chloride 1,000 mls @ 999 mls/hr 04/04/25 08:15 04/04/25 10:12 Ns IV 04/04/25 09:15 Infused .Q1H1M CHRISTIE Infusion Ketorolac Tromethamine 15 mg 04/04/25 08:15 04/04/25 09:05 Ketorolac Tromethamine 15 Mg/Ml Vial IVPUSH 04/04/25 08:16 15 mg ONCE ONE Administration Medical Decision Making Medical Decision Making [facility] Narrative: 24-year-old female with a past medical history of obesity, hirsutism, PCOS, asthma, right upper molar dental extraction on (03/31/25), presenting to the ED complaining of subjective fever, sore throat, chills, right-sided facial pain, congestion, cough x 3 days. On exam tachycardic, NAD, nontoxic appearing, physical exam back. Concern for dental infection vs viral illness vs strep pharyngitis. No evidence of dental abscess/facial abscess/swelling at this time. No evidence of [employer]/retropharyngeal abscess or acute otitis media/externa. Unlikely mastoiditis. Low suspicion for severe sepsis at this time Plan: Labs, viral testing, rapid strep, IVF, Toradol, re-evaluate Please refer to course for remaining clinical decision making, interpretation of labs/imaging results, and discussions with consultants and/or family members. Differential Diagnosis Differential Diagnoses: The differential diagnosis associated with the presentation includes As above Admission/Observation Consideration of admission/observation: Escalation of care including admission/observation considered Lab Data [facility] Lab Attestation statement: I reviewed the patient's lab results. 04/04/25 07:28 04/04/25 07:28 Labs: Lab Results 04/04/25 04/04/25 Range/Units 07:28 08:29 WBC 7.8 (4.8-10.8) X10*3/uL RBC 5.17 D (4.20-5.50) X10*6/uL Hgb 12.7 D (12.0-16.0) g/dl Hct 38.9 D (37.0-47.0) % MCV 75.2 L (80.0-98.0) fL MCH 24.6 L (27.0-33.0) pg MCHC 32.6 (31.0-35.0) g/dl RDW 14.0 (11.0-16.0) % Plt Count 249 (160-400) X10*3/uL MPV 10.5 (9.4-12.3) fL Immature Gran % (Auto) 0.4 (0.0-0.4) % Neut % (Auto) 81.1 H (45-73) % Lymph % (Auto) 13.2 L (20-40) % [place] % (Auto) 4.1 (2-11) % Eos % (Auto) 0.9 (0-4) % Baso % (Auto) 0.3 (0-2) % Lymph # (Auto) 1.0 L (1.2-4.9) X10*3/uL [place] # (Auto) 0.3 (0.1-1.2) X10*3/uL Eos # (Auto) 0.1 (0.0-0.4) X10*3/uL Baso # (Auto) 0.0 (0.0-0.2) X10*3/uL Abs Immat Gran (auto) 0.03 (0.00-0.03) X10*3/uL Absolute Neuts (auto) 6.3 (2.0-8.3) x10*3/uL Absolute Nucleated RBC 0.000 (0.0-0.012) X10*3/uL Nucleated RBC % (auto) 0.0 (0.0-0.2) /100WBC Sodium 136 (135-145) mmol/L Potassium 3.9 (3.3-5.1) mmol/L Chloride 105 (96-108) mmol/L Carbon Dioxide 21 L (22-29) mmol/L Anion Gap 14 (12-20) BUN 11 (9-16) mg/dL Creatinine 0.76 (0.5-1.4) mg/dL Estim Creat Clear Calc 127.5 Estimated GFR > 60 Random Glucose 103 (60-115) mg/dL Lactic Acid 0.9 (0.5-2.0) mmol/L Calcium 9.7 (8.4-10.2) mg/dL Total Bilirubin 0.4 (0.0-1.0) mg/dL AST 31 (5-31) U/L ALT 23 (0-31) U/L Alkaline Phosphatase 80 (39-117) U/L Total Protein 8.2 H (6.5-8.0) g/dL Albumin 4.4 (3.5-5.0) g/dL Beta HCG, Quant < 2 mIU/mL Influenza Type A (PCR) NEGATIVE (Negative) Influenza Type B (PCR) NEGATIVE (Negative) RSV RNA Qual (PCR) NEGATIVE (Negative) SARS-CoV-2 RNA (RT-PCR) NEGATIVE (Negative) S. pyogenes GrpA HARINDER Negative (Negative) Radiology Impression Discussion of test interpretation with radiology: I have reviewed the radiologist's reading. External Record Review External record reviewed: Inpatient record, Office record, Outpatient record, Prior outpatient labs, Prior outpatient radiology, Primary care record and Outside ED record Tests considered The following testing was considered but not selected: As above Prescription Management I considered prescription management with: Pain Medication and Antibiotic Chronic Conditions Patient?s care impacted by: Other Social Determinants Patient?s care significantly limited by Social Determinants of Health including: Other Social Determinant of Health Discharge Plan Discharge Clinical Impression: Dental infection Patient Disposition: Home, Self-Care Instructions: Dental Abscess (ED) Additional Instructions: Your blood work is reassuring You tested negative for COVID, flu, RSV and strep throat Augmentin as an antibiotic please take as prescribed until completion. Take Tylenol and ibuprofen at home for pain and swelling Please call your dentist for close follow-up, you should be re-evaluated in the next few days If her symptoms persist or worsen you have facial swelling, drainage in your mouth, difficulty or inability to swallow or fever return to the ED [facility] [address] [place] [address] Prescriptions: New amoxicillin-pot clavulanate 875-125 mg tablet 1 tab PO BID 7 Days Qty: 14 0RF No Action albuterol sulfate 90 mcg/actuation HFA aerosol inhaler 1 inh inhalation QID PRN (Reason: shortness of breath or wheezing) Qty: 8.5 0RF (DME) AeroEclipse II Nebulizer Misc See Rx Instructions .ROUTE .MEDSUPPLY Qty: 1 0RF Rx Instructions: As directed fluticasone propionate [Flonase Allergy Relief] 50 mcg/actuation spray,suspension 1 spray intranasal BID Qty: 16 0RF Rx Instructions: administer into each nostril ibuprofen 600 mg tablet 600 mg PO Q8H PRN (Reason: fever or pain) Qty: 14 0RF acetaminophen 500 mg tablet 1,000 mg PO QID PRN (Reason: pain) Qty: 30 0RF ibuprofen 600 mg tablet 600 mg PO Q6H PRN (Reason: fever or pain) Qty: 20 0RF desogestrel-ethinyl estradiol [Apri] 0.15-0.03 mg tablet 1 tab PO DAILY 28 Days Qty: 28 2RF Referrals: Physician,None [Primary Care Provider] - Stand Alone Forms: Work/School Release Interventions: ED Discharge Assessment Last Done: 04/04/25 11:01 Discharge Date/Time: 04/04/25 11:02 Print Language: Finnish
[2025-04-04 08:55] LABS: Influenza A PCR NEGATIVE (Negative); Influenza B PCR NEGATIVE (Negative); Resp Syncy Virus RNA Qual PCR NEGATIVE (Negative); SARS COV2 PCR INHOUSE NEGATIVE (Negative)
[2025-04-04] MEDS: Ketorolac Tromethamine 15 MG/ML VIAL IVPUSH (09:05)
[2025-04-04] MEDS: 0.9 % Sodium Chloride 1,000 ML 999 ML IV (09:05)
[2025-04-04 09:15] LABS: HCG Quantitative < 2 mIU/mL
[2025-04-04 10:18] VITALS: BP 107/55; PULSE 94; RESP 14; TEMP 37.2; O2SAT 96
[2025-04-04 11:01] VITALS: BP 107/55; PULSE 94; RESP 14; TEMP 37.2; O2SAT 96
== END 2025-04-04 11:02 | disposition home or self-care (01) ==
PROVIDERS: Emergency Provider Emergency Medicine
DX: K04.7 Periapical abscess without sinus (principal); J45.909 Unspecified asthma, uncomplicated; Z03.818 Encounter for observation for suspected exposure to other biological agents ruled out; R50.9 Fever, unspecified
CPT/HCPCS: 0241U; 80053; 83605; 84702; 85025; 87040; 87651; 96361; 96374; 99284; J1885

== ENCOUNTER 2025-09-20 06:55 | Emergency (ER) | payer OTHER, SELFPAY ==
--- NOTE | 2025-09-20 07:38 | ED.URI ---
HPI - URI/Sore Throat General Chief Complaint: General Medical Stated Complaint: throat pain Time Seen by Provider: 09/20/25 07:30 Source: patient Mode of arrival: ambulatory Limitations: no limitations History of Present Illness ED Provider: TERRY ABDUL Narrative: 25-year-old female with past medical history of asthma and PCOS she went to a family green party on Friday she did note her [id number] was not feeling well. That night she started to feel sick had chills lately she had a fever and then had sore throat. She can swallow she is not drooling but it is painful. She has no other sick contacts, she does not have children, no recent travel. She denies any other past medical history or issues. She notes the right side of her throat hurts a lot more than the left. MD elicited complaint: sore throat Pertinent past history: other Onset (ago): day(s) (Friday) Consistency: constant Severity: moderate Description of mucous: clear Able to tolerate fluids by mouth: Yes Exacerbating factors: swallowing Relieving factors: nothing Context: sick contacts Associated symptoms: fever, chills, voice changes and sore throat Treatments prior to arrival: none Related Data Previous Rx's ?Medication ?Instructions ?Recorded nebulizers (AeroEclipse II #1 ea 10/20/21 Nebulizer) fluticasone propionate 50 1 spray intranasal BID #16 grams 07/11/22 mcg/actuation nasal spray,suspension (Flonase Allergy Relief) albuterol sulfate 90 mcg/actuation 1 inh inhalation QID PRN shortness 01/29/23 aerosol inhaler of breath or wheezing #8.5 grams ibuprofen 600 mg tablet 600 mg PO Q8H PRN fever or pain 09/11/23 #14 tabs desogestrel 0.15 mg-ethinyl 1 tab PO DAILY 28 days #28 tabs 10/15/23 estradiol 0.03 mg tablet (Apri) acetaminophen 500 mg tablet 1,000 mg (2 x 500 mg) PO QID PRN 09/03/24 pain #30 tabs ibuprofen 600 mg tablet 600 mg PO Q6H PRN fever or pain 09/03/24 #20 tabs amoxicillin 875 mg-potassium 1 tab PO BID 7 days #14 tabs 04/04/25 clavulanate 125 mg tablet amoxicillin 500 mg capsule 500 mg PO TID 10 days #30 caps 09/20/25 Allergies Allergy/AdvReac Type Severity Reaction Status Date / Time No Known Allergies Allergy Verified 09/20/25 07:44 Review of Systems Review of Systems: Constitutional : positive Fever, positive Chills, ENT/Mouth : positive sore throat, no runny nose Eyes: No Discharge Cardiovascular : No Chest Pain, No SOB Respiratory : No Cough, No Sputum Gastrointestinal : No Nausea, No Vomiting, No Diarrhea Genitourinary : No Dysuria, No Urinary Frequency Musculoskeletal : positive Myalgia Skin : No rash Neuro : No Headache Yes all other systems are reviewed and are negative [facility] Past Medical History Attestation statement: The following information was validated with the patient. Source: old records reviewed Medical History Obesity PCOS (polycystic ovarian syndrome) Asthma Family History Family History Maternal Grandfather Stroke Paternal Grandmother Cancer Social History Social History Alcohol intake: never Patient Tobacco Use Status: Never used Tobacco Sexual orientation: Straight/Heterosexual Gender identity: Female Physical Exam Vital Signs: Vital Signs: Last Vital Signs Temp 98.2 F 09/20/25 07:42 Pulse 81 09/20/25 07:42 Resp 16 09/20/25 07:42 BP 120/73 09/20/25 07:42 Pulse Ox 97 09/20/25 07:42 O2 Del Method Room Air 09/20/25 07:42 BMI result Body Mass Index 40.8 Appearance: Alert. Oriented X3. No acute distress. Eyes: Pupils equal, round and reactive to light. ENT: Pharynx erythema of both tonsils including the uvula but uvula is midline she has no signs of peritonsillar abscess or retropharyngeal abscess on exam she has mild exudates in mild petechiae on the soft palate Neck: Normal inspection. Neck supple. Small tender lymphadenopathy anterior cervical chain CVS: Normal heart rate and rhythm. Pulses normal. Respiratory: No respiratory distress. Breath sounds normal. Abdomen: Soft and nontender. Skin: Skin warm and dry. Normal skin color. Normal skin turgor. Extremities: No lower extremity edema. No calf ttp Neuro: Oriented X 3. No motor deficit. No sensory deficit. CN2-12 intact Medical Decision Making Medical Decision Making [facility] Narrative: 25-year-old female with past medical history of asthma PCOS presenting with isolated sore throat and fevers and chills after family green party on Friday. She has no signs of deeper space infection and no signs of peritonsillar abscess. She is tolerating secretions, she will need flu and COVID swabs as well as strep study. I have started her on oral Motrin and oral dexamethasone to aid in comfort. I suspect she has strep throat based off clinical exam and will need to start on oral antibiotics Differential Diagnosis Differential Diagnoses: The differential diagnosis associated with the presentation includes Viral syndrome, strep throat Admission/Observation Consideration of admission/observation: Escalation of care including admission/observation considered Nontoxic no signs of deeper space infection can be managed with outpatient oral antibiotics Lab Data [facility] Lab Attestation statement: I reviewed the patient's lab results. Labs: Lab Results 09/20/25 Range/Units 07:39 S. pyogenes GrpA HARINDER Positive A (Negative) External Record Review External record reviewed: Outpatient record Prescription Management I considered prescription management with: Antibiotic Discharge Plan Discharge Clinical Impression: Acute streptococcal pharyngitis Patient Disposition: Home, Self-Care Instructions: Strep Throat (ED) Additional Instructions: Please finish all antibiotics, throw away her toothbrush after 24 hours Return for any worsening symptoms no improvement in 48 hours. You are no longer contagious 12 hours after your 1st dose of antibiotics Rest and stay hydrated, alternate Tylenol and Motrin for pain Your strep test was positive, your COVID test was negative, your influenza test was negative On amoxicillin, softer bowel movements are to be expected. Call your provider if you move your bowels more than 4 times a day, your bowel movements are almost all liquid, or you get a rash.? Prescriptions: New amoxicillin 500 mg capsule 500 mg PO TID 10 Days Qty: 30 0RF No Action albuterol sulfate 90 mcg/actuation HFA aerosol inhaler 1 inh inhalation QID PRN (Reason: shortness of breath or wheezing) Qty: 8.5 0RF (DME) AeroEclipse II Nebulizer Misc See Rx Instructions .ROUTE .MEDSUPPLY Qty: 1 0RF Rx Instructions: As directed fluticasone propionate [Flonase Allergy Relief] 50 mcg/actuation spray,suspension 1 spray intranasal BID Qty: 16 0RF Rx Instructions: administer into each nostril ibuprofen 600 mg tablet 600 mg PO Q8H PRN (Reason: fever or pain) Qty: 14 0RF acetaminophen 500 mg tablet 1,000 mg PO QID PRN (Reason: pain) Qty: 30 0RF ibuprofen 600 mg tablet 600 mg PO Q6H PRN (Reason: fever or pain) Qty: 20 0RF amoxicillin-pot clavulanate 875-125 mg tablet 1 tab PO BID 7 Days Qty: 14 0RF desogestrel-ethinyl estradiol [Apri] 0.15-0.03 mg tablet 1 tab PO DAILY 28 Days Qty: 28 2RF Stand Alone Forms: Work/School Release Print Language: Setswana
[2025-09-20 07:42] VITALS: BP 120/73; PULSE 81; RESP 16; TEMP 36.8; O2SAT 97; BMI 40.8
--- NOTE | 2025-09-20 07:48 | PC.NURSE ---
Pt roomed and placed on 1/2 monitor- VSS Airway patent, voide clear, controlling secretions well. NAD.
[2025-09-20 07:52] LABS: IDNOW Serial# 6674DD1D; Strep A Nucleic Acid Positive (Negative)
[2025-09-20] MEDS: Ibuprofen Oral Susp 200 MG/10 ML ORAL.SUSP 600 MG PO (07:54)
[2025-09-20 08:06] LABS: COVID-19 Test Negative (Negative); IDNOW Serial# 55D5AD1C; IDNOW Serial# 58CA691E; Influenza B2 Negative (Negative)
[2025-09-20 08:29] VITALS: BP 120/73; PULSE 81; RESP 16; TEMP 36.8; O2SAT 97
--- OUTSIDE RECORDS SUMMARY | 2025-09-20 08:31 | XMS_ITS | Clinical Summary ---
Author Organization [employer] Address [address] [place] [address] [address] [place] [address] Care Team Providers Care Pharmacy Buyer Name Role Phone Diane Lofton NP Primary Care Provider [phone] Allergies No known active allergies Medications albuterol (2.5 MG/3ML) 0.083% nebulizer solution INHALE 1 VIAL BY NEBULIZATION ROUTE EVERY 6 TO 8 HOURS IF NEEDED FOR SHORTNESS OF BREATH OR WHEEZING 90 mL 1 3 Active Mometasone Furoate (Asmanex HFA) 50 MCG/ACT aerosol INHALE 2 PUFFS BY INHALATION ROUTE TWICE A DAY 13 g 3 Active diphenhydrAMINE (BENADryl) 25 MG tabletIndication s:Acute URI Take 1 tablet (25 mg) by mouth if needed at bedtime for itching. 10 tablet 5 Active albuterol 108 (90 Base) MCG/ACT inhalerIndicatio ns:Mild intermittent asthma without complication Inhale 2 puffs every 4 (four) hours if needed for wheezing. 18 g 5 026 Active Active Problems Problem Noted Date Diagnosed Date Acute URI 12/28/2024 Assessment & Plan (12/28/2024 1:33 PM EST): Likely cocaxie virus given URI with rash and distrubution including palm. -No evidence of respiratory distress. Symptoms mild. -No evidence of dehydration. -Supportive care advised. -Isolation recommendations discussed. -ER precautions discussed. -Seek medical attention for worsening symptoms. Social History Tobacco Use Types Packs/Day Years Used Date Smoking Tobacco: Never Passive Smoke Exposure: Never Smokeless Tobacco: Never Tobacco Cessation:Counseling Given: No Alcohol Use Standard Drinks/Week Comments Never 0 (1 standard drink = 0.6 oz pur e alcohol) Housing Stability Answer Date Recorded What is your housing situation today? I have marielle arreaga 09/08/[address] you li ve. Do you have problems with any of the following? None of the above 09/08/2023 Food Insecurity Answer Date Recorded Within the past 12 months, y ou worried that your food would run out before you got money to buy more: Sometimes True 2022 Within the past 12 months,th e food you bought just didn't last and you didn't have enough money to get more: Sometimes True 09/08/2023 Transportation Answer Date Recorded In the past 12 months, has l ack of transportation kept you from medical appts, meetings, work or from getting things needed for daily living? No 09/08/2023 Utilities Answer Date Recorded In the past 12 months, has t he electric, gas, oil or water company threatened to shut off services in your home? No 09/08/2023 Comments Unknown Sex and Gender Information Value Date Recorded Sex Assigned at Female 09/16/2022 10:29 AM EDT Legal Sex Female 10:29 AM EDT Gender Identity Female 09/16/2022 10:29 AM EDT Sexual Orientation Straight 09/16/2022 10 :29 AM EDT Last Filed Vital Signs Vital Sign Reading Time Taken Comments Blood Pressure 141/86 12/28/2024 1:03 PM EST Pulse 80 12/28/2024 1:03 PM EST Temperature 36.8 C (98.2 F) 12/28/2024 1:03 PM EST Respiratory Rate 16 12/28/2024 1:03 PM EST Oxygen Saturation 98% 12/28/2024 1:03 PM EST Inhaled Oxygen Concentration - - Weight 99.8 kg (220 lb) 12/28/2024 1:03 PM EST Height 158.1 cm (5' 2.25 ) 03/27/2022 12:05 AM E DT Body Mass Index 39.91 03/27/2022 12:05 AM EDT Plan of Treatment Health Maintenance Due Date Last Done Comments Dental Oral Exam 2000 Dental Prophylaxis 2000 Dental X-Ray: Bitewings 2000 Depression Screening 2000 HIV Screening 2000 Disability Screening 2000 Alcohol/Substance Use Screening 2012 Family Planning (PISQ) 2015 Hepatitis C Screening 2018 Pneumococcal Vaccine: Pediatrics (0 to 5 Years) and At-Risk Patients (6 to 49) Years (1 of 2 - PCV) 2019 Pap Smear 2021 Tobacco Screening 10/24/2023 10/24/2022 SDOH Screening 07/22/2024 07/22/2023 COVID-19 Vaccine ( season) 2025 Influenza Vaccine (#1) 2025 1, 09/10/2010, 09/07/2009 Dental X-Ray: Full Mouth 10/25/2025 10/24/2022 DTaP/Tdap/Td Vaccines (7 - Td or Tdap) 03/27/2032 03/27/2022, 05/19/2011, 04/24/2005, Additional history exists Zoster Vaccines (1 of 2) 2050 RSV Patients and Patients Aged 60 years or older (1 - 1-dose 75+ series) 2075 Hepatitis B Vaccines Completed 2000, 2000, 2000 HIB Vaccines Completed 08/20/2001, 05/2001, 2000, Additional history exists IPV Vaccines Completed 05/03/2004, 05/2001, 2000, Additional history exists Hepatitis A Vaccines Completed 12/24/2011, 05/24/20 11 HPV Vaccines Completed 05/07/2016, 11/2010, 05/24/2011 Meningococcal Vaccine Completed 04/21/2018, 011 Meningococcal B Vaccine Aged Out No l onger eligible based on patient's age to complete this topic RSV under 20 months Aged Out No longe r eligible based on patient's age to complete this topic Rotavirus Vaccines Aged Out No longer eligible based on patient's age to complete this topic Procedures Procedure Name Priority Date/Time Associated Diagnosis Comments PANORAMIC RADIOGRAPHIC IMAGE Routine 10/24/2022 1:00 PM EST from Last 3 Months or Most Recently Relevant to Health Maintenance Insurance [place] [facility] [place] [place] Care Teams Pharmacy Buyer Relationship Specialty Start Date End Date Diane Lofton NP [address] [place] [id number] PCP - General Family Medicine 08/26/23
--- OUTSIDE RECORDS SUMMARY | 2025-09-20 08:31 | XMS_ITS | Encounter Summary ---
Author Organization [employer] Address [address] [facility] [address] [place] [address] Care Team Providers Care Cardroom Manager Name Role Phone Diane Lofton NP Primary Care Provider + Reason for Visit * Reason Comments Med Refill Encounter Details Date Type Department Care Team ([facility] st Contact Info) Description 11/03/[address] [facility] [address] [place] [address] Rachelle Lopez FNP [address] [place] [phone] Social History Tobacco Use Types Packs/Day Years Used Date Smoking Tobacco: Never Passive Smoke Exposure: Never Smokeless Tobacco: Never Alcohol Use Standard Drinks/Week Comments Never 0 [...] t he electric, gas, oil or water [employer] threatened to shut off services in your home? No 09/08/2023 Comments Unknown Sex and Gender Information Value Date Recorded Sex Assigned at Female 09/16/2022 10:29 AM EDT Legal Sex Female 10:29 AM EDT Gender Identity Female 09/16/2022 10:29 AM EDT Sexual Orientation Straight 09/16/2022 10 :29 AM EDT documented as of this encounter Miscellaneous Notes * Telephone Encounter - Diane Lofton NP - 11/04/2023 11:25 AM EST Approving, but needs appt for additional refills. documented in this encounter Plan of Treatment Not on file documented as of this encounter Visit Diagnoses Not on filedocumented in this encounter Care Teams Cardroom Manager Relationship Specialty Start Date End Date Diane Lofton NP [address] [place] [id number] PCP - General Family Medicine 08/26/23 documented as of this encounter
== END 2025-09-20 08:30 | disposition home or self-care (01) ==
PROVIDERS: Emergency Provider Emergency Medicine
DX: J02.0 Streptococcal pharyngitis (principal); J45.909 Unspecified asthma, uncomplicated
CPT/HCPCS: 87502; 87635; 87651; 99283; 99284; J1100